=== PATIENT | female | born 1960 | race Caucasian/White ===

== ENCOUNTER 2020-03-30 08:05 | Outpatient (REF) | payer BC, SELFPAY ==
[2020-03-30 10:35] LABS: MANUAL DIFF FLAG NO
[2020-03-30 10:40] LABS: Basophils Absolute Auto 0.1 X10*3/uL (0.0-0.2); Eosinophils Absolute Auto 0.1 X10*3/uL (0.0-0.4); Eosinophils Percent Auto 0.9 % (0-4); Hematocrit 39.3 % (37-47); Imm Gran Abs Auto 0.03 X10*3/uL (0.00-0.03); Imm Gran Pct Auto 0.4 % (0.0-0.4); Lymphocytes Absolute Auto 1.9 X10*3/uL (1.2-4.9); Lymphocytes Percent Auto 27.6 % (20-40); Mean Corpuscular HGB Conc 33.1 g/dl (31.0-35.0); Mean Corpuscular Hemoglobin 30.6 pg (27.0-33.0); Mean Corpuscular Volume 92.5 fL (80-98); Mean Platelet Volume 9.4 fL (9.4-12.3); Monocytes Absolute Auto 0.6 X10*3/uL (0.1-1.2); Monocytes Percent Auto 8.9 % (2-11); Neutrophils Absolute Auto 4.2 X10*3/uL (2.0-8.3); Neutrophils Percent Auto 61.2 % (45-73); Platelet Count 289 X10*3/uL (160-400); Red Blood Count 4.25 X10*6/uL (4.20-5.50); Red Cell Distribution Width 12.1 % (11.0-16.0); White Blood Count 6.9 X10*3/uL (4.8-10.8)
[2020-03-30 11:07] LABS: Anion Gap 12 (12-20); Blood Urea Nitrogen 15 mg/dL (9-16); Calcium 9.6 mg/dL (8.4-10.2); Carbon Dioxide 30 mmol/L (22-29); Chloride 102 mmol/L (96-108); Estimated Glomerular Filt Rate > 60; Glucose Random 136 mg/dL (60-115); Potassium 4.6 mmol/l (3.3-5.1); Sodium 139 mmol/L (135-145); Uric Acid 3.5 mg/dL (2.4-5.7)
[2020-03-30 11:23] LABS: Erythrocyte Sedimentation Rate 5 MM/HR (0-20)
[2020-03-31 16:16] LABS: CRP High Sensitivity <0.3 mg/L
== END 2020-03-30 08:06 | disposition home or self-care (01) ==
LOC: HO.WFDLDS 08:05
PROVIDERS: PCP Internal Medicine; Visit Provider Family Medicine
DX: M18.9 Osteoarthritis of first carpometacarpal joint, unspecified (principal)
CPT/HCPCS: 36415; 80048; 84550; 85025; 85652; 86141

== ENCOUNTER 2020-04-03 14:04 | Outpatient (REF) | payer BC, SELFPAY ==
--- NOTE | 2020-04-03 14:11 | XR_ITS ---
EXAMINATION: XR CERVICAL SPINE CLINICAL INFORMATION: Cervical radiculopathy COMPARISON: None TECHNIQUE: 3 views of the cervical spine were obtained. FINDINGS: There is straightening of cervical lordosis. The vertebral bodies are normal in height. There is no cervical vertebral compression or destructive process or prevertebral soft tissue swelling. The odontoid appears intact. There are degenerative disc changes C3-C4, C5-C6, and C6-C7 with disc narrowing and mild vertebral spurring. There is some mild facet degeneration C3-C5. There is retrolisthesis under 2 mm at C3-C4 and 2 mm anterior spondylolisthesis approximately at C4-C5. IMPRESSION: 1. Degenerative disc changes C3-C4, C5-C6, and C6-C7. Variable facet degeneration. 2. Mild retrolisthesis C3-C4 and mild anterior spondylolisthesis C4-C5.
[2020-04-03 16:37] LABS: MANUAL DIFF FLAG NO
[2020-04-03 16:40] LABS: Basophils Absolute Auto 0.1 X10*3/uL (0.0-0.2); Basophils Percent Auto 0.7 % (0-2); Eosinophils Percent Auto 0.4 % (0-4); Hematocrit 41.9 % (37-47); Hemoglobin 13.7 g/dl (12.0-16.0); Imm Gran Abs Auto 0.04 X10*3/uL (0.00-0.03); Imm Gran Pct Auto 0.4 % (0.0-0.4); Lymphocytes Absolute Auto 2.2 X10*3/uL (1.2-4.9); Lymphocytes Percent Auto 24.1 % (20-40); Mean Corpuscular HGB Conc 32.7 g/dl (31.0-35.0); Mean Corpuscular Hemoglobin 30.4 pg (27.0-33.0); Mean Corpuscular Volume 92.9 fL (80-98); Mean Platelet Volume 9.1 fL (9.4-12.3); Monocytes Absolute Auto 0.5 X10*3/uL (0.1-1.2); Monocytes Percent Auto 5.9 % (2-11); Neutrophils Absolute Auto 6.2 X10*3/uL (2.0-8.3); Neutrophils Percent Auto 68.5 % (45-73); Platelet Count 324 X10*3/uL (160-400); Red Blood Count 4.51 X10*6/uL (4.20-5.50); Red Cell Distribution Width 12.3 % (11.0-16.0)
[2020-04-04 09:17] LABS: Lyme Abs Screen <0.90 index
[2020-04-05 05:06] LABS: Syphilis Screen Nonreactive (Nonreactive)
[2020-04-05 05:40] LABS: HIV AB/AG Nonreactive (Nonreactive); HIV Num 1 0.06 S/CO (0.00-0.99)
== END 2020-04-03 14:05 | disposition home or self-care (01) ==
LOC: HO.HMGCLDS 14:04
PROVIDERS: PCP Internal Medicine; Visit Provider Family Medicine
DX: M54.12 Radiculopathy, cervical region (principal); Z11.4 Encounter for screening for human immunodeficiency virus [HIV]
CPT/HCPCS: 36415; 72040; 85025; 86618; 86780; 87086; 87389

== ENCOUNTER 2020-05-29 14:00 | Outpatient (RCR) | payer BC, SELFPAY | END 2020-07-20 09:50 | disposition other institution (70) | LOC: HO.PTWFD 14:00 | PROVIDERS: Visit Provider Family Medicine | DX: M54.12 Radiculopathy, cervical region (principal) | CPT/HCPCS: 97110; 97140; 97162 ==

== ENCOUNTER 2021-11-27 12:34 | Outpatient (REF) | payer BC, SELFPAY ==
[2021-11-28 22:32] LABS: Lyme Abs Screen <0.90 index
== END 2021-11-27 12:35 | disposition home or self-care (01) ==
LOC: HO.WFDLDS 12:34
PROVIDERS: Visit Provider Family Medicine
DX: T14.8XXA Other injury of unspecified body region, initial encounter (principal); W57.XXXA Bitten or stung by nonvenomous insect and other nonvenomous arthropods, initial encounter
CPT/HCPCS: 36415; 86617; 86618

== ENCOUNTER 2023-03-17 07:22 | Outpatient (AMB) | payer BC, SELFPAY ==
--- NOTE | 2023-03-17 07:30 | MHC.PC.OV ---
Vital Signs 03/17/23 07:32 Height 5 ft 7 in Weight 136 lb BMI 21.3 BP 132/68 Blood Pressure Location Lt brachial Position Sitting Pulse 69 Pulse Source Pulse Oximeter Pulse Oximetry (%) 98 Oxygen Delivery Method Room Air Intake Visit Reasons: Dizziness for 6 to 8 weeks, Left ear discomfort, ear buzzing worsening Allergies amoxicillin [AMOXICILLIN] Allergy (Severe, Verified 03/17/23 07:33) HIVES penicillamine [Cuprimine] Allergy (Severe, Verified 03/17/23 07:33) HIVES Penicillins [PENICILLINS] Allergy (Severe, Verified 03/17/23 07:33) HIVES Medication List - Last Reconciled 03/17/23 by SARAN Osuna calcium carbonate-vitamin D3 600 mg-10 mcg (400 unit) 2 tabs PO DAILY 90 days gabapentin 200 mg (2 x 100 mg) PO BID 30 days melatonin 10 mg PO BEDTIME PRN Tobacco use date assessed: 09/02/22 Fall risk assessment: No Falls in past year Last assessed Fall Risk: 03/17/23 Dental Screening Dental Screen Date: 03/17/23 Did you have a dental visit in the last 12 months?: Yes Did you have a dental problem in the last 6 months where you did not have access to dental care?: No Was dental information given to patient?: Patient has dentist HPI HPI Comments History of Present Illness Details 62-year-old female PMH significant for migraines, osteoporosis, insomnia and burgada syndrome. Patient of Dr. Rider presents today for problem visit for worsening ear buzzing. Buzzing going on for 8 years however she feels is worsening. Patient also reports was doing yoga on Friday morning and she felt slightly off balance and felt like she got pulled to the left side. Patient denied any left ear pain states slight pressure. Denies fever, chills and cough. Patient does report she did have mild nasal congestion recently. Patient denies any lightheadedness or dizziness at this time and states that she does not feel like the room is spinning and that the tugging balance feeling has not reoccurred since that time. Patient encouraged to get previously ordered lab work completed. Recommended hearing test for ongoing ear buzzing. Patient reports has appointment with ENT in April for an appointment as well as a hearing test. Patient requesting medication states that she is feeling anxiety urine lightheaded to this ongoing ear buzzing, will trial hydroxyzine 25 mg as needed. [facility] Medical History Brugada syndrome Insomnia Migraine Osteoarthritis Osteoporosis Status post placement of implantable loop recorder (~02/04/18) Surgical History History of breast surgery History of colonoscopy History of total right hip arthroplasty Family History (Updated 03/17/23 @ 07:33 by Susan Dumas [facility]) Father No problems noted. Mother Alive and well Social History Housing: House Alcohol intake: current Alcohol intake frequency: holidays/special occasions only Patient Tobacco Use Status: Former Tobacco user Tobacco use type: Cigarette e-Cigarette/Vaping Use: Never Used Second Hand Smoke Exposure: Yes Advance Directives Date on File: 04/07/20 service: No Current occupational status: employed Cognitive needs: No Hearing needs: No Vision needs: Yes Questionnaire PHQ-9 Over the last 2 weeks, how often have you been bothered by any of the following problems? 1. Little interest or pleasure in doing things: not at all 2. Feeling down, depressed, or hopeless: not at all 3. Trouble falling or staying asleep, or sleeping too much: several days 4. Feeling tired or having little energy: several days 5. Poor appetite or overeating: not at all 6. Feeling bad about yourself - or that you are a failure or have let yourself or your family down: not at all 7. Trouble concentrating on things, such as reading the newspaper or watching television: not at all 8. Moving or speaking so slowly that other people could have noticed. Or the opposite - being so fidgety or restless that you have been moving around a lot more than usual: not at all 9. Thoughts that you would be better off or of hurting yourself in some way: not at all Total score: 2 Depression Screening Interpretation: Negative 13198 - PHQ-9 Billing: Yes Source: Developed by Drs. Cameron Randolph, Pamela Becerra, Cornelio Ruggiero and colleagues, with an educational barry from [employer]. Thrive Questionnaire Date Thrive assessed: 09/02/22 AUDIT C Alcohol Use Questionnaire (AUDIT-C) 1. How often do you have a drink containing alcohol?: Monthly or less 2. How many drinks containing alcohol do you have on a typical day when you are drinking?: 1 or 2 3. How often do you have six or more drinks on one occasion?: Never Total Score: 1 Score Reviewed/Action Taken: Yes LUKE-7 AMB Questionnaire LUKE-7 Date LUKE - 7 assessed: 09/02/22 Source: Developed by Drs. Cameron Randolph, Pamela Becerra, Cornelio Ruggiero and colleagues, with an educational barry from [employer]. Review of Systems Const Denies chills, Denies fatigue, Denies fever(s) and Denies poor appetite Eyes Denies no additional complaints and Reports other (left ear buzzing ) ENT Reports Normal hearing present Card Denies chest pain, Denies syncope, Denies rapid heart rate and Denies dyspnea Resp Denies cough and Denies dyspnea GI Denies change in stool character, Denies constipation, Denies diarrhea, Denies nausea and Denies vomiting Denies urinary frequency, Denies dysuria and Denies urinary urgency Neuro Reports Normal hearing present, Denies confusion and Denies syncope Psych Denies confusion Endo Denies fatigue Physical exam (Primary Care) Vital Signs: Last Vital Signs Pulse 69 03/17/23 07:32 BP 132/68 03/17/23 07:32 Pulse Ox 98 03/17/23 07:32 Oxygen Delivery Method Room Air 03/17/23 07:32 BMI result Body Mass Index 21.3 Tobacco/Smoking Status: Tobacco use Status Tobacco use date assessed 09/02/22 03/17/23 07:38 Patient Tobacco Use Status Former Tobacco user 03/17/23 07:38 Tobacco use type Cigarette 03/17/23 07:38 e-Cigarette/Vaping Use Never Used 03/17/23 07:38 PHQ-9: PHQ-9 Score PHQ-9: Total score 2 03/17/23 07:44 Depression Screening Interpretation: Negative Thrive Assessment: Date of Thrive Assessment Date Thrive assessed 09/02/22 03/17/23 07:38 Const General: No confusion Orientation/consciousness: No confusion HENMT Head: Yes normocephalic and Yes atraumatic Ears: external ears normal and TM abnormal with fluid behind the TM on the left Eyes Conjunctivae: conjunctivae normal Chest Chest palpation & inspection: normal inspection of the chest Resp Effort & Inspection: normal respiratory effort Auscultation: clear to auscultation bilaterally, no crackles, no rhonchi and no wheezes Cardio Rate: regular rate Rhythm: regular rhythm Heart sounds: S1 normal heart sound present and S2 normal heart sound present GI Inspection: Yes normal to inspection Neuro General: No confusion Cranial nerves: Yes Normal hearing present Extrem General: No edema Assessment and Plan Assessment & Plan (1) Anxiety: Code(s): F41.9 - Anxiety disorder, unspecified Plan: Hydroxyzine 25 mg as needed for anxiety. Patient advised that this medication could make her drowsy if so do not take while working or driving. Can cut the pill in half to 12.5 mg daily makes her drowsy. (2) Tinnitus: Code(s): H93.19 - Tinnitus, unspecified ear Plan: Patient advised to keep scheduled appointment with ENT for hearing test. (3) Eustachian tube dysfunction: Code(s): H69.90 - Unspecified Eustachian tube disorder, unspecified ear Plan: Patient advised to take [id number] Claritin daily to help promote drainage the ears, off balance feeling possibly related to nasal congestion and fluid behind TM. Signs and symptoms reviewed with patient when to follow-up with PCP. Medications: New hydroxyzine HCl 25 mg PO BID PRN 20 tabs 0RF anxiety F41.9 - Anxiety disorder, unspecified Coding Level of Care Code Est Pt Level 3 (11259) Diagnoses Anxiety F41.9 Tinnitus H93.19 Eustachian tube dysfunction H69.90
[2023-03-17 07:32] VITALS: BP 132/68; PULSE 69; O2SAT 98; BMI 21.3
== END 2023-03-17 08:11 | disposition home or self-care (01) ==
PROVIDERS: PCP Internal Medicine; Visit Provider Nurse Practitioner Family
DX: F41.9 Anxiety disorder, unspecified (principal); H93.19 Tinnitus, unspecified ear; H69.90 Unspecified Eustachian tube disorder, unspecified ear
CPT/HCPCS: 99213

== ENCOUNTER 2023-04-15 08:44 | Outpatient (REF) | payer BC, SELFPAY ==
[2023-04-15 09:01] LABS: MANUAL DIFF FLAG NO
[2023-04-15 09:24] LABS: Basophils Absolute Auto 0.1 X10*3/uL (0.0-0.2); Basophils Percent Auto 1.6 % (0-2); Eosinophils Absolute Auto 0.2 X10*3/uL (0.0-0.4); Hematocrit 40.9 % (37.0-47.0); Hemoglobin 13.5 g/dl (12.0-16.0); Imm Gran Abs Auto 0.02 X10*3/uL (0.00-0.03); Imm Gran Pct Auto 0.3 % (0.0-0.4); Lymphocytes Absolute Auto 2.1 X10*3/uL (1.2-4.9); Lymphocytes Percent Auto 35.9 % (20-40); Mean Corpuscular Hemoglobin 30.2 pg (27.0-33.0); Mean Corpuscular Volume 91.5 fL (80.0-98.0); Mean Platelet Volume 8.6 fL (9.4-12.3); Monocytes Absolute Auto 0.6 X10*3/uL (0.1-1.2); Monocytes Percent Auto 10.1 % (2-11); Neutrophils Absolute Auto 2.8 x10*3/uL (2.0-8.3); Neutrophils Percent Auto 49.1 % (45-73); Platelet Count 276 X10*3/uL (160-400); Red Blood Count 4.47 X10*6/uL (4.20-5.50); Red Cell Distribution Width 12.3 % (11.0-16.0); White Blood Count 5.7 X10*3/uL (4.8-10.8)
[2023-04-15 09:57] LABS: Appearance Urine Clear; Color Urine Yellow; Glucose Urine UA Negative (Negative); Leukocyte Esterase Urine Negative (Negative); Nitrite Urine Negative (Negative); PH 7.5 (5.0-9.0); Specific Gravity - Urine <= 1.005 (1.005-1.025); Urine Blood Negative (Negative); Urine Ketones Negative (Negative); Urine Protein Negative (Neg-Trace)
[2023-04-15 10:08] LABS: Alanine Aminotransferase 25 U/L (0-31); Albumin Level 4.3 g/dL (3.5-5.0); Alkaline Phosphatase 62 U/L (39-117); Anion Gap 13 (12-20); Aspartate Amino Transferase 25 U/L (5-31); Bilirubin Total 0.4 mg/dL (0.0-1.0); Blood Urea Nitrogen 13 mg/dL (9-16); Calcium 9.9 mg/dL (8.4-10.2); Carbon Dioxide 29 mmol/L (22-29); Chloride 103 mmol/L (96-108); Cholesterol 183 mg/dL (<200); Estimated Glomerular Filt Rate > 60; Glucose Fasting 95 mg/dL (60-99); HDL Cholesterol 84 mg/dL (>40); LDL Cholesterol Calculated 88 mg/dL (<100); Potassium 4.1 mmol/L (3.3-5.1); Sodium 141 mmol/L (135-145); Total Protein 7.1 g/dL (6.5-8.0); Triglycerides 55 mg/dL (<150)
[2023-04-15 10:25] LABS: Vitamin D 25-OH Total 37.7 ng/mL (>30)
== END 2023-04-15 08:45 | disposition home or self-care (01) ==
LOC: HO.LAB 08:44
PROVIDERS: PCP Internal Medicine; Visit Provider Internal Medicine
DX: Z00.00 Encounter for general adult medical examination without abnormal findings (principal); E78.00 Pure hypercholesterolemia, unspecified; E55.9 Vitamin D deficiency, unspecified
CPT/HCPCS: 36415; 80053; 80061; 81003; 82306; 84443; 85025

== ENCOUNTER 2023-04-15 17:11 | Outpatient (AMB) | payer BC, SELFPAY ==
[2023-04-15 17:12] VITALS: BP 124/80; PULSE 69; O2SAT 98; BMI 21.0
--- NOTE | 2023-04-15 17:12 | MHC.PC.OV ---
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: No Accompanied by: Self / Same As Patient Allergies amoxicillin [AMOXICILLIN] Allergy (Severe, Verified 04/15/23 17:32) HIVES penicillamine [Cuprimine] Allergy (Severe, Verified 04/15/23 17:32) HIVES Penicillins [PENICILLINS] Allergy (Severe, Verified 04/15/23 17:32) HIVES Medication List - Last Reconciled 04/15/23 by Darin Maldonado MD calcium carbonate-vitamin D3 600 mg-10 mcg (400 unit) 2 tabs PO DAILY 90 days gabapentin 200 mg (2 x 100 mg) PO BID 30 days melatonin 10 mg PO BEDTIME PRN Tobacco use date assessed: 04/15/23 Fall risk assessment: No Falls in past year Last assessed Fall Risk: 04/15/23 Dental Screening Dental Screen Date: 04/15/23 Did you have a dental visit in the last 12 months?: Yes Did you have a dental problem in the last 6 months where you did not have access to dental care?: No Was dental information given to patient?: Patient has dentist HPI pe HPI Details Patient comes in today for her annual physical examination States that she has been experiencing recurrent tinnitus and vertigo for the past month, with the tinnitus worse in her left ear Was seen here for said complaint last month and was trialed on Hydroxyzine to help with her anxiety but states that she took one dose of this a few weeks ago and felt very tired and drowsy and stopped taking this immediately Tried to call her ENT doctor's office to [place] to schedule an appointment but could not get in to see the doctor until late next month after Thanksgiving but she was able to get them to clear and irrigate out her left ear, which was filled with ear wax but did not seem to help much with her recurrent vertigo Notes that her symptoms seem to get worse when she turns her head too quickly or when she changes positions abruptly States that she tried looking up as much information as she can regarding her symptoms but all this did was made her feel more anxious about her problem(s) and which in turn seems to make her symptoms feel worse Feels that she may also benefit from something to help calm her anxiety down, which she states has increased lately especially with her 's health issues over the past couple of years She denies any ear pain; denies any fever or headaches Denies any sore throat or any recent cough/cold symptoms She denies any chest pains, no SOB No nausea/vomiting, no abdominal pain No change in bowel habits noted She denies any acute urinary symptoms Had her follow up labs done at [facility] earlier this morning - to discuss her results She will be calling to schedule her annual mammogram at [facility] for next month; will also be seeing 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 Mother Alive and well Social History Housing: House Alcohol intake: current Alcohol intake frequency: holidays/special occasions only Patient Tobacco Use Status: Former Tobacco user Tobacco use type: Cigarette e-Cigarette/Vaping Use: Never Used Second Hand Smoke Exposure: Yes Advance Directives Date on File: 04/07/20 service: No Current occupational status: employed Cognitive needs: No Hearing needs: No Vision needs: Yes Questionnaire PHQ-9 Over the last 2 weeks, how often have you been bothered by any of the following problems? 1. Little interest or pleasure in doing things: not at all 2. Feeling down, depressed, or hopeless: not at all 3. Trouble falling or staying asleep, or sleeping too much: several days 4. Feeling tired or having little energy: several days 5. Poor appetite or overeating: not at all 6. Feeling bad about yourself - or that you are a failure or have let yourself or your family down: not at all 7. Trouble concentrating on things, such as reading the newspaper or watching television: not at all 8. Moving or speaking so slowly that other people could have noticed. Or the opposite - being so fidgety or restless that you have been moving around a lot more than usual: not at all 9. Thoughts that you would be better off or of hurting yourself in some way: not at all Total score: 2 Depression Screening Interpretation: Negative Depression Screening Done: Yes [id number] - PHQ-9 Billing: Yes Source: Developed by Drs. Cameron Randolph, Pamela Becerra, Cornelio Ruggiero and colleagues, with an educational barry from [employer]. Thrive Questionnaire Date Thrive assessed: 04/15/23 I am a: Patient What is your living situation today?: I have a steady place to live Within the past 12 months, did the food you bought not last and you didn't have the money to get more?: Never true Within the past 12 months, did you worry whether your food would run out before you got money to buy more?: Never true Do you have trouble paying for medicines?: No Do you have trouble getting transportation to medical appointments?: No Do you have trouble paying your heating and electricity bill?: No Do you have trouble taking care of your child, family member or friend?: No Do you have trouble with day-to-day activities such as bathing, preparing meals, shopping, managing finances, etc.?: No Are you currently unemployed and looking for a job?: No Are you interested in more education?: No Please select the resources that you would like help with: None Currently or been in a relationship where the following occur: no concerns reported AUDIT C Alcohol Use Questionnaire (AUDIT-C) 1. How often do you have a drink containing alcohol?: Monthly or less 2. How many drinks containing alcohol do you have on a typical day when you are drinking?: 1 or 2 3. How often do you have six or more drinks on one occasion?: Never Total Score: 1 Score Reviewed/Action Taken: Yes LUKE-7 AMB Questionnaire LUKE-7 Date LUKE - 7 assessed: 04/15/23 Feeling nervous, anxious, or on edge: 0 = Not at all Not being able to stop or control worryin = Not at all Worrying too much about different things: 0 = Not at all Trouble relaxin = Not at all Being so restless that it is hard to sit still: 0 = Not at all Becoming easily annoyed or irritable: 0 = Not at all Feeling afraid as if something awful might happen: 0 = Not at all Total LUKE-7 score (0-4 normal; 5-9 mild; 10-14 moderate; 15-21 severe): 0 Source: Developed by Drs. Cameron Randolph, Pamela Becerra, Cornelio Ruggiero and colleagues, with an educational barry from [employer]. Review of Systems Const Denies chills, Denies fatigue, Denies fever(s), Denies headache(s) and Denies malaise Eyes Denies blurry vision, Denies change in vision, Denies irritation and Denies itchy eyes ENT Denies dysphagia, Reports vertigo (on and off lately), Denies otalgia, Denies headache(s), Denies nasal congestion, Reports neck pain (at times - feel her neck 'crack' a lot when she turns her head), Denies odynophagia, Reports tinnitus (increasing, especially in the left ear), Denies sinus pain and Denies sore throat Card Denies chest pain, Denies rapid heart rate, Denies irregular heart rhythm, Denies palpitations and Denies dyspnea Resp Denies chest congestion, Denies cough, Denies dyspnea and Denies wheezing GI Denies abdominal pain, Denies bloating, Denies constipation, Denies dysphagia, Denies heartburn, Reports loose stools (occasionally, mostly when she gets stressed), Denies nausea, Denies odynophagia and Denies vomiting Denies hematuria, Denies urinary frequency, Denies dysuria, Denies urinary incontinence and Denies urinary urgency Musc Denies back pain, Denies arthralgias, Denies joint swelling, Denies muscle weakness and Reports neck pain (at times - feel her neck 'crack' a lot when she turns her head) Skin/Breast Denies breast pain, Denies breast mass, Denies change in pigmentation, Denies lesions, Denies rash and Denies unusual bruising Neuro Reports vertigo (on and off lately), Denies headache(s) and Denies paresthesias Psych Reports anxiety (increasing) and Denies depression Endo Denies fatigue and Denies palpitations Edis/Lymph Denies easy bruising Aller/Immun Denies itchy eyes and Denies wheezing Physical exam (Primary Care) Vital Signs: Last Vital Signs Pulse 69 04/15/23 17:12 BP 124/80 04/15/23 17:12 Pulse Ox 98 04/15/23 17:12 Oxygen Delivery Method Room Air 04/15/23 17:12 BMI result Body Mass Index 21.0 Tobacco/Smoking Status: Tobacco use Status Tobacco use date assessed 04/15/23 04/15/23 17:15 Patient Tobacco Use Status Former Tobacco user 04/15/23 17:15 Tobacco use type Cigarette 04/15/23 17:15 e-Cigarette/Vaping Use Never Used 04/15/23 17:15 PHQ-9: PHQ-9 Score PHQ-9: Total score 2 04/15/23 19:44 Depression Screening Interpretation: Negative Thrive Assessment: Date of Thrive Assessment Date Thrive assessed 04/15/23 04/15/23 17:22 Currently or been in a relationship where the following occur: no concerns reported Const General: no acute distress, alert and awake Orientation/consciousness: patient oriented x3 HENMT Head: Yes normocephalic and Yes atraumatic Ears: external ears normal, TM's normal bilaterally and EAC's normal General nose exam: No nasal discharge present Face and sinus: Yes normal facial exam and Yes sinuses nontender Teeth and gingiva: dentition normal Throat: Yes posterior oropharynx normal and Yes tonsils normal (no TP congestion) Eyes Eyelids: Yes eyelids normal Conjunctivae: conjunctivae normal Pupils: Equal, round and reactive pupils present EOM: EOMs intact bilaterally Neck Neck: Yes no lymphadenopathy and Yes supple Thyroid: Thyroid normal Resp Auscultation: clear to auscultation bilaterally, no rales and no wheezes Cardio Rate: regular rate Rhythm: regular rhythm Heart sounds: no murmurs GI Palpation (GI): Soft to palpation, nontender and No hepatosplenomegaly present Auscultation: normal bowel sounds General: Yes no CVA tenderness Back/Spine/Pelvis Back: no CVA tenderness Cervical Spine: Cervical spine tenderness (mild) Thoracic/Lumbar Spine: No thoracic spinal tenderness and No lumbar spinal tenderness Skin Lesions: no lesions Rashes: no rashes Neuro General: patient oriented x3, moves all extremities, no focal motor deficits and CN's II-XI intact bilaterally Cranial nerves: Yes Equal, round and reactive pupils present Cognition (Neuro): normal cognition Gait exam (Neuro): Normal gait present Extrem General: Yes no clubbing, cyanosis or edema Results Reviewed Results Reviewed: Laboratory Tests 04/15/23 08:57 WBC 5.7 Hgb 13.5 Hct 40.9 Plt Count 276 Sodium 141 Potassium 4.1 Creatinine 0.84 Estimated GFR > 60 Fasting Glucose 95 Calcium 9.9 AST 25 ALT 25 Triglycerides 55 Cholesterol 183 LDL Cholesterol, Calc 88 HDL Cholesterol 84 25-OH Vitamin D Total 37.7 TSH 2.00 Ur Specific [place] <= 1.005 Urine Protein Negative Urine Glucose (UA) Negative Urine Blood Negative Assessment and Plan Assessment & Plan (1) Annual physical exam: Code(s): Z00.00 - Encounter for general adult medical examination without abnormal findings Plan: Results of her labs done earlier today reviewed and discussed with patient She is up-to-date on her colon cancer screening (due for repeat next year in 2023) She will be scheduling her annual mammogram and pap smear/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 with [facility] for sometime in the next couple of months (2) Osteoporosis: Code(s): M81.0 - Age-related osteoporosis without current pathological fracture Qualifiers: Osteoporosis type: age-related Presence of current pathological fracture: without current pathological fracture Qualified Code(s): M81.0 - Age-related osteoporosis without current pathological fracture Plan: BMD done in 06/2017 revealed (+) osteoporosis with lowest T-score value of -2.8 in the femoral neck Patient has been on Alendronate 70 mg once a week since 2018 and just recently completed 5 years of oral bisphosphonate Tx earlier this year Will reevaluate her response to Tx and consider other treatment options afterwards Will recheck her BMD SHAKA for follow up (this was previously ordered but she was not able to get it done due to her 's significant health issues over the past couple of years) She is encouraged/reminded to continue to stay active and exercise regularly and continue taking her daily oral Calcium and Vitamin D supplements Fall and injury precautions reinforced as well (3) Vertigo: Code(s): R42 - Dizziness and giddiness Plan: She most likely has paroxysmal benign positional vertigo States that she tried to book an appointment to see her ENT SHAKA but was advised that the earliest appointment they can give her is next month after Thanksgiving Will refer her to physical therapy for canalith positioning Will also try her empirically on oral Prednisone 20 mg QD x 5 days to see if this will calm down her symptoms of tinnitus and dizziness - suspect that she may have some labyrinthitis of the left ear that could be triggering her current symptoms (4) Migraine: Code(s): G43.909 - Migraine, unspecified, not intractable, without status migrainosus Qualifiers: Intractability: not intractable Migraine type: without aura Status migrainosus presence: without status migrainosus Qualified Code(s): G43.009 - Migraine without aura, not intractable, without status migrainosus Plan: Appears controlled so far Reinforced avoidance of migraine triggers Continue Sumatriptan 50 mg PRN She was also started on Verapamil 40 mg Q HS for BOYD prophylaxis by neurology last year but it appears that she is no longer taking this and has not done so in a while Follow up with neurology (Dr. Quiros) as scheduled or as needed (5) Brugada syndrome: Code(s): I49.8 - Other specified cardiac arrhythmias Plan: Initially suspected on EKG sometime in 2018 - EKG revealed ST elevation and downsloping pattern in V2 Subsequent Holter monitoring and echocardiogram were unremarkable. Stress test revealed good exercise tolerance and a pattern of ST elevation in lead V2. 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 Brugada As she has never had any episodes of syncope or near-syncope, was determined to not be a candidate for ICD placement Patient underwent placement of an [employer] implantable loop recorder on 02/04/2018 and continues to be monitored for NSVT or VT episodes and any other concerning symptoms She has met with genetic counselor in [place] and they have discussed plan to have her family members, especially her daughter, meet with them sometime in the future for testing States that she currently feels well and continues to exercise regularly with no restrictions in terms of activity or exertion and has not had any concerning symptoms (including chest pains or SOB) so far Follow up with cardiology at [facility] as scheduled yearly (6) Osteoarthritis: Code(s): M19.90 - Unspecified osteoarthritis, unspecified site Qualifiers: Osteoarthritis location: unspecified site Osteoarthritis type: primary Qualified Code(s): M19.91 - Primary osteoarthritis, unspecified site Plan: Involving multiple joints Patient underwent total right hip arthroplasty on 08/21/2020, with significant improvement of her right hip pain and mobility Her other hip has been bothering her on and off although she continues to stay active and exercise and work out regularly Continue Celecoxib 200 mg BID PRN for pain Follow up with orthopedics as scheduled (7) Spondylolisthesis, cervical region: Code(s): M43.12 - Spondylolisthesis, cervical region Plan: Continue Gabapentin 200 mg BID Cervical spine x-rays done back in 2019 revealed (+) degenerative disc changes at C3-C4, C5-C6, and C6-C7,with variable facet degeneration. There is also (+) mild retrolisthesis at C3-C4 and mild anterior spondylolisthesis at C4-C5 (8) Insomnia: Code(s): G47.00 - Insomnia, unspecified Qualifiers: Insomnia type: unspecified Qualified Code(s): G47.00 - Insomnia, unspecified Plan: Sleep hygiene reinforced Continue Melatonin 10 mg Q HS PRN (9) Anxiety: Code(s): F41.9 - Anxiety disorder, unspecified Plan: She could not tolerate the Hydroxyzine that was prescribed for her last week Would like to try something for her anxiety but does not want anything that can make her feel drowsy or tired Advised that most of the PRN meds for anxiety are benzodiazepines, which can cause drowsiness and are also potentially habit-forming Have advised that taking something for maintenance treatment would be a better option and should not cause drowsiness - will start her on low dose Sertraline 25 mg QD Plan Follow up in 4 months Orders: Orders PT Evaluation and Treatment Today R42 - Dizziness and giddiness XR DEXA axial skeleton Today M81.0 - Age-related osteoporosis without current pathological fracture, Z78.0 - Asymptomatic menopausal state Medications: New sertraline Take daily in AM 25 mg PO DAILY 30 days 30 tabs 3RF anxiety F41.9 - Anxiety disorder, unspecified prednisone 20 mg PO DAILY 5 days 5 tabs 0RF Coding Level of Care Code Est Pt Prev Care 40-64y(17241) Diagnoses Annual physical exam Z00.00 Age-related osteoporosis without current pathological fracture M81.0 Osteoporosis type: age-related Presence of current pathological fracture: without current pathological fracture Vertigo R42 Migraine without aura and without status migrainosus, not intractable G43.009 Intractability: not intractable Migraine type: without aura Status migrainosus presence: without status migrainosus Brugada syndrome I49.8 Primary osteoarthritis, unspecified site M19.91 Osteoarthritis location: unspecified site Osteoarthritis type: primary Spondylolisthesis, cervical region M43.12 Insomnia, unspecified type G47.00 Insomnia type: unspecified Anxiety F41.9
== END 2023-04-15 18:08 | disposition home or self-care (01) ==
LOC: HO.HMGH 17:11
PROVIDERS: PCP Internal Medicine; Visit Provider Internal Medicine
DX: Z00.00 Encounter for general adult medical examination without abnormal findings (principal); M81.0 Age-related osteoporosis without current pathological fracture; R42 Dizziness and giddiness; G43.009 Migraine without aura, not intractable, without status migrainosus; I49.8 Other specified cardiac arrhythmias; M19.91 Primary osteoarthritis, unspecified site; M43.12 Spondylolisthesis, cervical region; G47.00 Insomnia, unspecified; F41.9 Anxiety disorder, unspecified
CPT/HCPCS: 99396

== ENCOUNTER 2023-06-03 17:00 | Outpatient (RCR) | payer BC, SELFPAY ==
[2023-05-05 15:06] VITALS: BP 118/75; PULSE 68
--- NOTE | 2023-05-06 12:07 | MHC.PT.EP ---
[facility] [place] Office [place] Office [place] Office [address] Magaly Paulino [address] [phone] F: [phone] F: [phone] F: [phone] F: [phone] Physical Therapy Plan of Care Date of Evaluation: 05/05/23 Date of Surgery: Diagnosis: Dizziness and giddiness Assessment: Pt is a very pleasant 62yo F who presents to PT with dizziness, and reports symptoms began on the 2nd week of January. Upon assessment, she was negative for Benign Paraoxysmal Positional Vertigo (BPPV) in all 3 canals bilaterally. She had signs and symptoms consistent with vestibular hypofunctioning noted with balance assessment and Dynamic Gait Index Assessment. She presents to PT with current impairments in dizziness, transfers, decreased balance/proprioception, and impaired gait. She is limited functionally by changing positions, walking with head turns, walking in the dark, and stair navigation. She is an excellent candidate for skilled PT for vestibular rehab in order to address current impairments in order to maximize function and facilitate return to PLOF Frequency and Duration: The patient will be seen 2x/week for 4 weeks Short Term Goals: Pt will be I with HEP to promote self management of symptoms Pt will demonstrate ability to balance on airex with eyes closed for 30 seconds with cl S Manager Paper Goals: Pt will demonstrate ability to ambulate with horizontal head turns independently without dizziness or instability Pt will successfully transition on/off the floor to perform yoga poses without subjective complaints of dizziness or loss of balance Treatment Plan: Modalities to reduce pain, spasms and effusion. Manual therapy to restore motion and function. Therapeutic exercise to improve strength and flexibility. Neuromuscular re-education for posture and balance. Therapeutic activities to return to functional activities of daily living. Electronically signed by: Terese He, PT, DPT Please sign and return to therapist. Thank you for your referral.
--- NOTE | 2023-09-29 10:54 | MHC.PT.DC ---
[facility] [place] Office [place] Office [place] Office [address] Magaly Paulino [address] [place] [address] [phone] F: [phone] F: [phone] F: [phone] F: [phone] Physical Therapy Discharge Report Diagnosis: Dizziness and giddiness Date of Surgery: Date of Evaluation: 05/05/23 Date of Discharge: 09/29/23 Treatments to Date: 3 Cancellations to Date: No Shows to Date: Discharge Status: Achieved Goals Improved Function Independent with HEP Discharge Summary: Pt was seen for PT from 05/05/23-06/03/23. Her last attended and scheduled PT treatment was 06/03/23. She is being D/C from skilled PT as she did not call to schedule in > 30 days From last PT treatment note: Pt has made excellent progress since SOC. She has consistently had no dizziness. She has improved her balance and is able to ambulate with head turns without onset of symptoms. She has returned to her functional baseline. I will keep pts chart open for 30 days in case she has reoccurence of symptoms or any concerns regarding PT. Pt in agreement with this plan Electronically signed by: Terese He, PT, DPT Please sign and return to therapist. Thank you for your referral.
== END 2023-09-29 10:53 | disposition home or self-care (01) ==
LOC: HO.PT 17:00
PROVIDERS: PCP Internal Medicine; Visit Provider Internal Medicine
DX: R42 Dizziness and giddiness (principal)
CPT/HCPCS: 97112; 97116; 97162

== ENCOUNTER 2023-10-15 14:28 | Outpatient (AMB) | payer BC, SELFPAY ==
--- NOTE | 2023-10-15 14:34 | A.OFFPC_ITS ---
Vital Signs 10/15/23 14:36 Height 5 ft 7 in Weight 133 lb BMI 20.8 BP 118/68 Blood Pressure Location Lt brachial Position Sitting Pulse 71 Pulse Source Pulse Oximeter Pulse Oximetry (%) 96 Oxygen Delivery Method Room Air Intake Visit Reasons: Neck discomfort/Unsteady Gait Intake Note: Patient is here to follow up on neck discomfort and unsteady gait. 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 Accompanied by: Self / Same As Patient Allergies amoxicillin [AMOXICILLIN] Allergy (Severe, Verified 11/24/23 17:44) HIVES penicillamine [Cuprimine] Allergy (Severe, Verified 11/24/23 17:44) HIVES Penicillins [PENICILLINS] Allergy (Severe, Verified 11/24/23 17:44) HIVES Medication List - Last Reconciled 10/15/23 by Darin Maldonado MD calcium carbonate-vitamin D3 600 mg-10 mcg (400 unit) 2 tabs PO DAILY 90 days cyclobenzaprine 5 mg PO TID PRN gabapentin 200 mg (2 x 100 mg) PO BID 30 days melatonin 10 mg PO BEDTIME PRN Tobacco use date assessed: 10/15/23 Fall risk assessment: No Falls in past year Last assessed Fall Risk: 10/15/23 Dental Screening Dental Screen Date: 10/15/23 Did you have a dental visit in the last 12 months?: Yes Did you have a dental problem in the last 6 months where you did not have access to dental care?: No Was dental information given to patient?: Patient has dentist HPI Neck discomfort/Unsteady Gait HPI Details Patient comes in today complaining of increasing pain and discomfort over the back of her neck lately Recalls being advised by Dr. Guillory back in 2019 that her cervical spine x- rays then showed (+) multilevel degenerative disease and would like to see if she can get a repeat cervical spine x-ray done for further evaluation of her recently increasing pain She denies any recent injury or trauma to her neck and states that she has been experiencing frequent cracking sensation over her neck She has also been experiencing recurrent tinnitus and vertigo for the past few months, with the tinnitus worse in her left ear Has noticed that her symptoms seem to get worse when she turns her head too quickly or when she changes positions abruptly States that she feels okay otherwise and denies any headaches or dizziness She denies any chest pains, no SOB No nausea/vomiting, no abdominal pain No change in bowel habits noted She would also like to go over the results of her labs done back in March 2023 after her last physical exam [facility] Medical History Status post placement of implantable loop recorder (~02/04/18) Insomnia Osteoporosis Brugada syndrome Osteoarthritis Migraine Surgical History History of colonoscopy History of total right hip arthroplasty History of breast surgery Family History Father No problems noted. Mother Alive and well Social History Housing: House Alcohol intake: current Alcohol intake frequency: holidays/special occasions only Patient Tobacco Use Status: Former Tobacco user Tobacco use type: Cigarette e-Cigarette/Vaping Use: Never Used Second Hand Smoke Exposure: Yes Advance Directives Date on File: 04/07/20 service: No Current occupational status: employed Cognitive needs: No Hearing needs: No Vision needs: Yes (Glasses) Questionnaire PHQ-9 Over the last 2 weeks, how often have you been bothered by any of the following problems? 1. Little interest or pleasure in doing things: not at all 2. Feeling down, depressed, or hopeless: not at all 3. Trouble falling or staying asleep, or sleeping too much: not at all 4. Feeling tired or having little energy: not at all 5. Poor appetite or overeating: not at all 6. Feeling bad about yourself - or that you are a failure or have let yourself or your family down: not at all 7. Trouble concentrating on things, such as reading the newspaper or watching television: not at all 8. Moving or speaking so slowly that other people could have noticed. Or the opposite - being so fidgety or restless that you have been moving around a lot more than usual: not at all 9. Thoughts that you would be better off or of hurting yourself in some way: not at all Total score: 0 Depression Screening Interpretation: Negative Depression Screening Done: Yes [id number] - PHQ-9 Billing: Yes Source: Developed by Drs. Cameron Randolph, Pamela Becerra, Cornelio Ruggiero and colleagues, with an educational barry from [employer]. Thrive Questionnaire Date Thrive assessed: 10/15/23 I am a: Patient What is your living situation today?: I have a steady place to live Within the past 12 months, did the food you bought not last and you didn't have the money to get more?: Never true Within the past 12 months, did you worry whether your food would run out before you got money to buy more?: Never true Do you have trouble paying for medicines?: No Do you have trouble getting transportation to medical appointments?: No Do you have trouble paying your heating and electricity bill?: No Do you have trouble taking care of your child, family member or friend?: No Do you have trouble with day-to-day activities such as bathing, preparing meals, shopping, managing finances, etc.?: No Are you currently unemployed and looking for a job?: No Are you interested in more education?: No Currently or been in a relationship where the following occur: no concerns reported THRIVE Score: 0 AUDIT C Alcohol Use Questionnaire (AUDIT-C) 1. How often do you have a drink containing alcohol?: Monthly or less 2. How many drinks containing alcohol do you have on a typical day when you are drinking?: 1 or 2 3. How often do you have six or more drinks on one occasion?: Never Total Score: 1 Score Reviewed/Action Taken: Yes LUKE-7 AMB Questionnaire LUKE-7 Date LUKE - 7 assessed: 10/15/23 Feeling nervous, anxious, or on edge: 0 = Not at all Not being able to stop or control worryin = Not at all Worrying too much about different things: 0 = Not at all Trouble relaxin = Not at all Being so restless that it is hard to sit still: 0 = Not at all Becoming easily annoyed or irritable: 0 = Not at all Feeling afraid as if something awful might happen: 0 = Not at all Total LUKE-7 score (0-4 normal; 5-9 mild; 10-14 moderate; 15-21 severe): 0 Source: Developed by Pamela Parker Kurt Kroenke and colleagues, with an educational barry from [employer]. Review of Systems Const Denies chills, Denies fatigue, Denies fever(s) and Denies headache(s) ENT Denies dysphagia, Reports vertigo (on and off lately), Denies otalgia, Denies headache(s), Reports neck pain (at times - feel her neck 'crack' a lot when she turns her head), Denies odynophagia, Reports tinnitus (increasing, especially in the left ear) and Denies sore throat Card Denies chest pain, Denies rapid heart rate, Denies irregular heart rhythm, Denies palpitations and Denies dyspnea Resp Denies chest congestion, Denies cough, Denies dyspnea and Denies wheezing GI Denies abdominal pain, Denies constipation, Denies dysphagia, Denies heartburn, Reports loose stools (occasionally, mostly when she gets stressed), Denies nausea, Denies odynophagia and Denies vomiting Denies hematuria, Denies urinary frequency, Denies dysuria and Denies urinary incontinence Musc Denies back pain, Denies arthralgias and Reports neck pain (at times - feel her neck 'crack' a lot when she turns her head) Skin/Breast Denies rash Neuro Reports vertigo (on and off lately), Denies headache(s) and Denies paresthesias Psych Reports anxiety (increasing) and Denies depression Endo Denies fatigue and Denies palpitations Edis/Lymph Denies easy bruising Aller/Immun Denies wheezing Physical exam (Primary Care) Vital Signs: Last Vital Signs Pulse 71 10/15/23 14:36 BP 118/68 10/15/23 14:36 Pulse Ox 96 10/15/23 14:36 Oxygen Delivery Method Room Air 10/15/23 14:36 BMI result Body Mass Index 20.8 Tobacco/Smoking Status: Tobacco use Status Tobacco use date assessed 10/15/23 10/15/23 14:43 Patient Tobacco Use Status Former Tobacco user 10/15/23 14:43 Tobacco use type Cigarette 10/15/23 14:43 e-Cigarette/Vaping Use Never Used 10/15/23 14:43 PHQ-9: PHQ-9 Score PHQ-9: Total score 0 10/15/23 15:40 Depression Screening Interpretation: Negative Thrive Assessment: Date of Thrive Assessment Date Thrive assessed 10/15/23 10/15/23 14:43 Currently or been in a relationship where the following occur: no concerns reported Const General: no acute distress and alert Orientation/consciousness: patient oriented x3 HENMT Ears: TM's normal bilaterally and EAC's normal Throat: Yes posterior oropharynx normal and Yes tonsils normal (no TP congestion) Neck Neck: Yes no lymphadenopathy and Yes tender (over the cervical spine) Thyroid: Thyroid normal Resp Auscultation: clear to auscultation bilaterally, no rales and no wheezes Cardio Rate: regular rate Rhythm: regular rhythm Heart sounds: no murmurs GI Palpation (GI): Soft to palpation and nontender Auscultation: normal bowel sounds General: Yes no CVA tenderness Back/Spine/Pelvis Back: no CVA tenderness Cervical Spine: Cervical spine tenderness (mild) Thoracic/Lumbar Spine: No lumbar spinal tenderness Skin Rashes: no rashes Neuro General: patient oriented x3 Cognition (Neuro): normal cognition Extrem General: Yes no clubbing, cyanosis or edema Results Reviewed Results Reviewed: Laboratory Tests 04/15/23 08:57 WBC 5.7 Hgb 13.5 Hct 40.9 Plt Count 276 Sodium 141 Potassium 4.1 Creatinine 0.84 Estimated GFR > 60 Fasting Glucose 95 Calcium 9.9 AST 25 ALT 25 Triglycerides 55 Cholesterol 183 LDL Cholesterol, Calc 88 HDL Cholesterol 84 25-OH Vitamin D Total 37.7 TSH 2.00 Ur Specific [place] <= 1.005 Urine Protein Negative Urine Glucose (UA) Negative Urine Blood Negative Urine Nitrite Negative Ur Leukocyte Esterase Negative Assessment and Plan Assessment & Plan (1) Spondylolisthesis, cervical region: Code(s): M43.12 - Spondylolisthesis, cervical region Plan: Cervical spine x-rays done back in March 2020 revealed (+) degenerative disc changes at C3-C4, C5-C6, and C6-C7, with variable facet degeneration and mild retrolisthesis at C3-C4 and mild anterior spondylolisthesis at C4-C5 Will send patient for repeat cervical spine x-rays for further evaluation/update on her condition (2) Vertigo: Code(s): R42 - Dizziness and giddiness Plan: Patient most likely has paroxysmal benign positional vertigo States that she was seen by ENT a few months ago and was advised that her exam came out mostly normal; she was recommended to continue with physical therapy for canalith positioning We also tried her empirically on oral Prednisone 20 mg QD x 5 days to see if this will calm down her symptoms of tinnitus and dizziness, as we suspected that she may have some labyrinthitis of the left ear that could be triggering her current symptoms, but patient did not think that prednisone helped much (3) Osteoporosis: Code(s): M81.0 - Age-related osteoporosis without current pathological fracture Qualifiers: Osteoporosis type: age-related Presence of current pathological fracture: without current pathological fracture Qualified Code(s): M81.0 - Age- related osteoporosis without current pathological fracture Plan: BMD done in 06/2017 revealed (+) osteoporosis with lowest T-score value of -2.8 in the femoral neck Patient has been on Alendronate 70 mg once a week since 2017 and just recently completed 5 years of oral bisphosphonate Tx earlier this year Will reevaluate her response to Tx and consider other treatment options subsequently - will recheck her BMD SHAKA for follow up This was previously ordered but she was not able to get it done right away due to her 's significant health issues over the past couple of years but she is now scheduled to have this done in a few weeks She is encouraged/reminded to continue to stay active and exercise regularly and continue taking her daily oral Calcium and Vitamin D supplements Fall and injury precautions reinforced as well Results of her labs done back in March 2023 reviewed and discussed with patient - is advised that her labs are mostly within normal range (4) Migraine: Code(s): G43.909 - Migraine, unspecified, not intractable, without status migrainosus Qualifiers: Migraine type: without aura Status migrainosus presence: without status migrainosus Intractability: not intractable Qualified Code(s): G43.009 - Migraine without aura, not intractable, without status migrainosus Plan: Appears controlled lately Reinforced avoidance of migraine triggers Continue Sumatriptan 50 mg PRN She was also started on Verapamil 40 mg Q HS for BOYD prophylaxis by neurology last year but it appears that she is no longer taking this and has not done so in a while Follow up with neurology (Dr. Quiros) as scheduled or as needed (5) Brugada syndrome: Code(s): I49.8 - Other specified cardiac arrhythmias Plan: Initially suspected on EKG sometime in 2018 - EKG revealed ST elevation and downsloping pattern in V2 Subsequent Holter monitoring and echocardiogram were unremarkable. Stress test revealed good exercise tolerance and a pattern of ST elevation in lead V2. 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 Brugada As she has never had any episodes of syncope or near-syncope, was determined to not be a candidate for ICD placement Patient underwent placement of an [employer] implantable loop recorder on 02/04/2018 and was monitored/evaluated for NSVT or VT episodes and any other concerning symptoms - it appears that this came out okay She has met with genetic counselor in [place] and they have discussed plan to have her family members, especially her daughter, meet with them sometime in the future for testing States that she currently feels well and continues to exercise regularly with no restrictions in terms of activity or exertion and has not had any concerning symptoms (including chest pains or SOB) so far Follow up with cardiology at [facility] as scheduled yearly (6) Osteoarthritis: Code(s): M19.90 - Unspecified osteoarthritis, unspecified site Qualifiers: Osteoarthritis location: unspecified site Osteoarthritis type: primary Qualified Code(s): M19.91 - Primary osteoarthritis, unspecified site Plan: Involving multiple joints Patient underwent total right hip arthroplasty on 08/21/2020, with significant improvement of her right hip pain and mobility Her other hip has been bothering her on and off although she continues to stay active and exercise and work out regularly Continue Celecoxib 200 mg BID PRN for pain Follow up with orthopedics as scheduled (7) Insomnia: Code(s): G47.00 - Insomnia, unspecified Qualifiers: Insomnia type: unspecified Qualified Code(s): G47.00 - Insomnia, unspecified Plan: Sleep hygiene reinforced Continue Melatonin 10 mg Q HS PRN (8) Anxiety: Code(s): F41.9 - Anxiety disorder, unspecified Plan: She could not tolerate Hydroxyzine when it was prescribed for her a few months ago She wanted to try something for her anxiety but does not want anything that can make her feel drowsy or tired She has been advised that most of the PRN meds for anxiety are benzodiazepines, which can cause drowsiness and are also potentially habit-forming She was previously started on low dose Sertraline 25 mg QD but she stopped taking it after a few days due to side effects Plan Follow up as scheduled in November 2023 Coding Level of Care Code Est Pt Level 4 (05699) Diagnoses Spondylolisthesis, cervical region M43.12 Vertigo R42 Age-related osteoporosis without current pathological fracture M81.0 Osteoporosis type: age-related Presence of current pathological fracture: without current pathological fracture Migraine without aura and without status migrainosus, not intractable G43.009 Migraine type: without aura Status migrainosus presence: without status migrainosus Intractability: not intractable Brugada syndrome I49.8 Primary osteoarthritis, unspecified site M19.91 Osteoarthritis location: unspecified site Osteoarthritis type: primary Insomnia, unspecified type G47.00 Insomnia type: unspecified Anxiety F41.9
[2023-10-15 14:36] VITALS: BP 118/68; PULSE 71; O2SAT 96; BMI 20.8
== END 2023-10-15 15:40 | disposition home or self-care (01) ==
PROVIDERS: PCP Internal Medicine; Visit Provider Internal Medicine
DX: M43.12 Spondylolisthesis, cervical region (principal); R42 Dizziness and giddiness; M81.0 Age-related osteoporosis without current pathological fracture; G43.009 Migraine without aura, not intractable, without status migrainosus; I49.8 Other specified cardiac arrhythmias; M19.91 Primary osteoarthritis, unspecified site; G47.00 Insomnia, unspecified; F41.9 Anxiety disorder, unspecified
CPT/HCPCS: 99214

== ENCOUNTER 2023-11-24 17:15 | Outpatient (AMB) | payer BC, SELFPAY ==
[2023-11-24 17:17] VITALS: BP 130/80; PULSE 70; O2SAT 98; BMI 20.9
--- NOTE | 2023-11-24 17:17 | A.OFFPC_ITS ---
Vital Signs 11/24/23 17:17 Height 5 ft 7 in Weight 133 lb 6 oz BMI 20.9 BP 130/80 Blood Pressure Location Lt brachial Position Sitting Pulse 70 Pulse Source Pulse Oximeter Pulse Oximetry (%) 98 Oxygen Delivery Method Room Air Intake Visit Reasons: Follow up/vertigo Chemical Handler Required: No Accompanied by: Self / Same As Patient Allergies amoxicillin [AMOXICILLIN] Allergy (Severe, Verified 11/24/23 17:44) HIVES penicillamine [Cuprimine] Allergy (Severe, Verified 11/24/23 17:44) HIVES Penicillins [PENICILLINS] Allergy (Severe, Verified 11/24/23 17:44) HIVES Medication List - Last Reconciled 11/24/23 by Darin Maldonado MD calcium carbonate-vitamin D3 600 mg-10 mcg (400 unit) 2 tabs PO DAILY 90 days cyclobenzaprine 5 mg PO TID PRN gabapentin 200 mg (2 x 100 mg) PO BID 30 days melatonin 10 mg PO BEDTIME PRN rizatriptan mg PO Tobacco use date assessed: 10/15/23 Fall risk assessment: No Falls in past year Last assessed Fall Risk: 11/24/23 Dental Screening Dental Screen Date: 10/15/23 HPI Follow up/vertigo HPI Details Patient comes in today for her follow up visit States that her recurrent symptoms of vertigo appears to have finally calmed down recently States that she has been going to physical therapy for her vertigo for a while and that her sessions seem to have helped She was also using her Fluticasone nasal spray upon the advice of ENT although she stopped using this a couple of weeks ago She is still experiencing recurrent symptoms of tinnitus in her left ear but states that this has not gotten any worse over the past few months She is scheduled for her repeat bone density later this week and is looking forward to finding out how she did compared to her previous scan She reports experiencing increasing pain over the back of her neck recently, with occasional symptoms of tingling going down her left arm; also notes that her neck tends to crack very easily now and all she has to do is turn her neck to make it crack Would like to see if she can be referred back to PT as she recalls that they have also helped her a lot with the same problem a few years ago She denies any headaches or dizziness Denies any chest pains, no SOB No nausea/vomiting, no abdominal pain No change in bowel habits noted She also admits to experiencing increased anxiety often and plans to seek coun seling for this [facility] Medical History Status post placement of implantable loop recorder (~02/04/18) Insomnia Osteoporosis Brugada syndrome Osteoarthritis Migraine Surgical History History of colonoscopy History of total right hip arthroplasty History of breast surgery Family History Father No problems noted. Mother Alive and well Social History Housing: House Alcohol intake: current Alcohol intake frequency: holidays/special occasions only Patient Tobacco Use Status: Former Tobacco user Tobacco use type: Cigarette e-Cigarette/Vaping Use: Never Used Second Hand Smoke Exposure: Yes Advance Directives Date on File: 04/07/20 service: No Current occupational status: employed Cognitive needs: No Hearing needs: No Vision needs: Yes (Glasses) Questionnaire Thrive Questionnaire Date Thrive assessed: 10/15/23 LUKE-7 AMB Questionnaire LUKE-7 Date LUKE - 7 assessed: 10/15/23 Source: Developed by Drs. Cameron Randolph, Pamela Becerra, Cornelio Ruggiero and colleagues, with an educational barry from [employer]. Review of Systems Const Denies chills, Denies fatigue, Denies fever(s) and Denies headache(s) ENT Denies dysphagia, Reports vertigo (on and off but appears to have subsided recently), Denies otalgia, Denies headache(s), Reports neck pain (increasing lately - feel her neck 'crack' a lot when she turns her head), Denies odynophagia, Reports tinnitus (increasing, especially in the left ear) and Denies sore throat Card Denies chest pain, Denies rapid heart rate, Denies irregular heart rhythm, Denies palpitations and Denies dyspnea Resp Denies chest congestion, Denies cough, Denies dyspnea and Denies wheezing GI Denies abdominal pain, Denies constipation, Denies dysphagia, Denies heartburn, Reports loose stools (occasionally, mostly when she gets stressed), Denies nausea, Denies odynophagia and Denies vomiting Denies hematuria, Denies urinary frequency, Denies dysuria and Denies urinary urgency Musc Denies back pain, Denies arthralgias and Reports neck pain (increasing lately - feel her neck 'crack' a lot when she turns her head) Skin/Breast Denies rash Neuro Reports vertigo (on and off but appears to have subsided recently), Denies headache(s) and Denies paresthesias Psych Reports anxiety (increasing) and Denies depression Endo Denies fatigue and Denies palpitations Edis/Lymph Denies easy bruising Aller/Immun Denies wheezing Physical exam (Primary Care) Vital Signs: Last Vital Signs Pulse 70 11/24/23 17:17 BP 130/80 11/24/23 17:17 Pulse Ox 98 11/24/23 17:17 Oxygen Delivery Method Room Air 11/24/23 17:17 BMI result Body Mass Index 20.9 Tobacco/Smoking Status: Tobacco use Status Tobacco use date assessed 10/15/23 11/24/23 17:17 Patient Tobacco Use Status Former Tobacco user 11/24/23 17:17 Tobacco use type Cigarette 11/24/23 17:17 e-Cigarette/Vaping Use Never Used 11/24/23 17:17 Thrive Assessment: Date of Thrive Assessment Date Thrive assessed 10/15/23 11/24/23 17:17 Const General: no acute distress and alert Orientation/consciousness: patient oriented x3 HENMT Ears: TM's normal bilaterally and EAC's normal Throat: Yes posterior oropharynx normal and Yes tonsils normal (no TP congestion) Neck Neck: Yes no lymphadenopathy and Yes tender (over the cervical spine) Thyroid: Thyroid normal Resp Auscultation: clear to auscultation bilaterally, no rales and no wheezes Cardio Rate: regular rate Rhythm: regular rhythm Heart sounds: no murmurs GI Palpation (GI): Soft to palpation and nontender Auscultation: normal bowel sounds General: Yes no CVA tenderness Back/Spine/Pelvis Back: no CVA tenderness Cervical Spine: Cervical spine tenderness (mild) Thoracic/Lumbar Spine: No lumbar spinal tenderness Skin Rashes: no rashes Neuro General: patient oriented x3 Cognition (Neuro): normal cognition Extrem General: Yes no clubbing, cyanosis or edema Assessment and Plan Assessment & Plan (1) Spondylolisthesis, cervical region: Code(s): M43.12 - Spondylolisthesis, cervical region Plan: Cervical spine x-rays done back in March 2020 revealed (+) degenerative disc changes at C3-C4, C5-C6, and C6-C7, with variable facet degeneration and mild retrolisthesis at C3-C4 and mild anterior spondylolisthesis at C4-C5 Will send patient for repeat cervical spine x-rays for further evaluation/update on her condition Will also refer her to physical therapy for further evaluation and management, per her request (2) Osteoporosis: Code(s): M81.0 - Age-related osteoporosis without current pathological fracture Qualifiers: Osteoporosis type: age-related Presence of current pathological fracture: without current pathological fracture Qualified Code(s): M81.0 - Age- related osteoporosis without current pathological fracture Plan: BMD done in 06/2017 revealed (+) osteoporosis with lowest T-score value of -2.8 in the femoral neck Patient has been on Alendronate 70 mg once a week since 2017 and just recently completed 5 years of oral bisphosphonate Tx earlier this year Will reevaluate her response to Tx and consider other treatment options subsequently - will recheck her BMD SHAKA for follow up This was previously ordered but she was not able to get it done right away due to her 's significant health issues over the past couple of years but she is now scheduled to have this done in a few days She is encouraged/reminded to continue to stay active and exercise regularly and continue taking her daily oral Calcium and Vitamin D supplements Fall and injury precautions reinforced as well (3) Vertigo: Code(s): R42 - Dizziness and giddiness Plan: Resolved - she most likely has paroxysmal benign positional vertigo States that she was seen by ENT a few months ago and was advised that her exam came out mostly normal and was advised to continue with physical therapy for canalith positioning We also tried her empirically on oral Prednisone 20 mg QD x 5 days to see if this will calm down her symptoms of tinnitus and dizziness, as we suspected that she may have some labyrinthitis of the left ear that could be triggering her current symptoms, but patient did not think that prednisone helped much (4) Migraine: Code(s): G43.909 - Migraine, unspecified, not intractable, without status migrainosus Qualifiers: Migraine type: without aura Status migrainosus presence: without status migrainosus Intractability: not intractable Qualified Code(s): G43.009 - Migraine without aura, not intractable, without status migrainosus Plan: Appears controlled lately Reinforced avoidance of migraine triggers Continue Sumatriptan 50 mg PRN She was also started on Verapamil 40 mg Q HS for BOYD prophylaxis by neurology last year but it appears that she is no longer taking this and has not done so in a while Follow up with neurology (Dr. Quiros) as scheduled or as needed (5) Brugada syndrome: Code(s): I49.8 - Other specified cardiac arrhythmias Plan: Initially suspected on EKG sometime in 2018 - EKG revealed ST elevation and downsloping pattern in V2 Subsequent Holter monitoring and echocardiogram were unremarkable. Stress test revealed good exercise tolerance and a pattern of ST elevation in lead V2. 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 Brugada As she has never had any episodes of syncope or near-syncope, was determined to not be a candidate for ICD placement Patient underwent placement of an [employer] implantable loop recorder on 02/04/2018 and was monitored/evaluated for NSVT or VT episodes and any other concerning symptoms - it appears that this came out okay She has met with genetic counselor in [place] and they have discussed plan to have her family members, especially her daughter, meet with them sometime in the future for testing States that she currently feels well and continues to exercise regularly with no restrictions in terms of activity or exertion and has not had any concerning symptoms (including chest pains or SOB) so far Follow up with cardiology at [facility] as scheduled yearly (6) Osteoarthritis: Code(s): M19.90 - Unspecified osteoarthritis, unspecified site Qualifiers: Osteoarthritis location: unspecified site Osteoarthritis type: primary Qualified Code(s): M19.91 - Primary osteoarthritis, unspecified site Plan: Involving multiple joints Patient underwent total right hip arthroplasty on 08/21/2020, with significant improvement of her right hip pain and mobility Her other hip has been bothering her on and off although she continues to stay active and exercise and work out regularly Continue Celecoxib 200 mg BID PRN for pain Follow up with orthopedics as scheduled (7) Insomnia: Code(s): G47.00 - Insomnia, unspecified Qualifiers: Insomnia type: unspecified Qualified Code(s): G47.00 - Insomnia, unspecified Plan: Sleep hygiene reinforced Continue Melatonin 10 mg Q HS PRN (8) Anxiety: Code(s): F41.9 - Anxiety disorder, unspecified Plan: She could not tolerate Hydroxyzine when it was prescribed for her a few months ago She wanted to try something for her anxiety but does not want anything that can make her feel drowsy or tired She has been advised that most of the PRN meds for anxiety are benzodiazepines, which can cause drowsiness and are also potentially habit-forming She was previously started on low dose Sertraline 25 mg QD but she stopped taking it after a few days (9) Colon cancer screening: Code(s): Z12.11 - Encounter for screening for malignant neoplasm of colon Plan: Will refer her to [facility] for repeat colonoscopy She had her colonoscopy last done by Dr. Travis in 2019 and is now due for repeat (5 years recall) Plan To return in 6 months for her next annual physical examination Orders: Orders XR cervical spine 3V 11/24/23 M43.12 - Spondylolisthesis, cervical region PT Evaluation and Treatment 24 M43.12 - Spondylolisthesis, cervical region Complete Blood Count Auto Diff 6 Months D64.9 - Anemia, unspecified, Z00.00 - Encounter for general adult medical examination without abnormal findings Lipid Panel 6 Months E78.00 - Pure hypercholesterolemia, unspecified, Z00.00 - Encounter for general adult medical examination without abnormal findings UA CC w/rflx Micro + Cult 6 Months R30.0 - Dysuria, Z00.00 - Encounter for general adult medical examination without abnormal findings Comprehensive [place]. Panel Fast 6 Months E78.00 - Pure hypercholesterolemia, unspecified, Z00.00 - Encounter for general adult medical examination without abnormal findings TSH reflex Free T4 6 Months E78.00 - Pure hypercholesterolemia, unspecified, Z00.00 - Encounter for general adult medical examination without abnormal findings Vitamin D 25-OH Total 6 Months E55.9 - Vitamin D deficiency, unspecified, Z00.00 - Encounter for general adult medical examination without abnormal findings Vitamin B12 and Folate 6 Months E53.8 - Deficiency of other specified B group vitamins, Z00.00 - Encounter for general adult medical examination without abnormal findings Referrals Gastroenterology Referral Z12.11 - Encounter for screening for malignant neoplasm of colon Coding Level of Care Code Est Pt Level 4 (64759) Diagnoses Spondylolisthesis, cervical region M43.12 Age-related osteoporosis without current pathological fracture M81.0 Osteoporosis type: age-related Presence of current pathological fracture: without current pathological fracture Vertigo R42 Migraine without aura and without status migrainosus, not intractable G43.009 Migraine type: without aura Status migrainosus presence: without status migrainosus Intractability: not intractable Brugada syndrome I49.8 Primary osteoarthritis, unspecified site M19.91 Osteoarthritis location: unspecified site Osteoarthritis type: primary Insomnia, unspecified type G47.00 Insomnia type: unspecified Anxiety F41.9 Colon cancer screening Z12.11
== END 2023-11-24 18:01 | disposition home or self-care (01) ==
PROVIDERS: PCP Internal Medicine; Visit Provider Internal Medicine
DX: M43.12 Spondylolisthesis, cervical region (principal); M81.0 Age-related osteoporosis without current pathological fracture; R42 Dizziness and giddiness; G43.009 Migraine without aura, not intractable, without status migrainosus; I49.8 Other specified cardiac arrhythmias; M19.91 Primary osteoarthritis, unspecified site; G47.00 Insomnia, unspecified; F41.9 Anxiety disorder, unspecified; Z12.11 Encounter for screening for malignant neoplasm of colon
CPT/HCPCS: 99214

== ENCOUNTER 2023-11-27 08:06 | Outpatient (REF) | payer BC, SELFPAY ==
--- NOTE | ~2023-11-27 | MM_ITS ---
EXAMINATION: BONE DENSITOMETRY CLINICAL INDICATION: Menopause. COMPARISON: Baseline BD dated 07/17/2017. TECHNIQUE: Using a [employer] Here DXA System (software version: 13.1) manufactured by [employer], dual-energy x-ray absorptiometry was performed of the lumbar spine and left hip. The images are of good technical quality. Summary results are attached. FINDINGS: LEFT FEMUR, NECK: Current: BMD 0.678 g/cm2, Z-score -1.0, T-score -2.6, osteoporosis. Baseline: BMD 0.651 g/cm2. LEFT FEMUR, TOTAL: Current: BMD 0.636 g/cm2, Z-score -1.6, T-score -2.9, osteoporosis, 7.6% decrease from baseline (<5% change is not significant). Baseline: BMD 0.688 g/cm2. AP SPINE L1-L4: Current: BMD 0.878 g/cm2, Z-score -0.8, T-score -2.5, osteoporosis, 0.2% decrease from baseline (<5% change is not significant). Baseline: BMD 0.880 g/cm2. IDENTIFIED RISK FACTORS: Menopause, height loss, osteoporosis. HISTORY OF FRACTURE: None listed. MEDICATIONS: Calcium, vitamin D. MM/XR DEXA axial skeleton IMPRESSION: 1. DIAGNOSIS: Osteoporosis based on the lowest T-score value of -2.9 in the total femur applying World Health Organization criteria. 2. 10-YEAR FRACTURE RISK PREDICTION, FRAX: According to the guidelines, FRAX calculation should only be performed on patients in the osteopenia bone density category. Therefore, FRAX was not performed on this patient. 3. Treatment Recommendations: NOF guidelines recommend consideration for treatment in postmenopausal women and men age 50 and older presenting with the following: -A hip or vertebral (clinical or morphometric) fracture. -T-score less than or equal to -2.5 at the femoral neck or spine after appropriate evaluation to exclude secondary causes. -Low bone mass at the hip or spine and a 10-year fracture probability by FRAX of greater than or equal to 3% for hip fracture or greater than or equal to 20% for major osteoporotic fracture based on the [place] adapted WHO algorithm. 4. Other Recommendations: All treatment decisions require clinical judgment and consideration of individual patient factors, including patient preferences, comorbidities, previous drug use, risk factors not captured in the FRAX model (e.g. frailty, falls, vitamin D deficiency, increased bone turnover, interval significant decline in bone density) and possible under or overestimation of fracture risk by FRAX. Additional medical evaluation for secondary cause of low bone mineral density may be appropriate. FUTURE SCAN RECOMMENDATION: People with diagnosed cases of osteoporosis or at high risk for fracture should have regular bone mineral density tests. For patients eligible for Medicare, routine testing is allowed once every 2 years. The testing frequency can be increased to one year for patients who have rapidly progressing disease, those who are receiving or discontinuing medical therapy to restore bone mass, or have additional risk factors.
== END 2023-11-27 08:07 | disposition home or self-care (01) ==
LOC: HO.MAMMO 08:06
PROVIDERS: PCP Internal Medicine; Visit Provider Internal Medicine
DX: M81.0 Age-related osteoporosis without current pathological fracture (principal); Z78.0 Asymptomatic menopausal state
CPT/HCPCS: 77080

== ENCOUNTER 2024-01-30 16:14 | Outpatient (AMB) | payer BC, SELFPAY ==
[2024-01-30 16:17] VITALS: BP 126/76; PULSE 65; BMI 21.5
--- NOTE | 2024-01-30 16:17 | MHC.OFFVIS ---
Vital Signs 01/30/24 16:17 Height 5 ft 7 in Weight 137 lb 2.04 oz BMI 21.5 BP 126/76 Blood Pressure Location Lt brachial Position Sitting Pulse 65 Intake Visit Reasons: [place] s/p recall (2019) Intake Note: Patient in office today as a new patient for colonoscopy. CC: Patient states that she takes some MOM at night and this keeps her regular. Denies having any GI symptoms Allergies amoxicillin [AMOXICILLIN] Allergy (Severe, Verified 01/30/24 16:25) HIVES penicillamine [Cuprimine] Allergy (Severe, Verified 01/30/24 16:25) HIVES Penicillins [PENICILLINS] Allergy (Severe, Verified 01/30/24 16:25) HIVES HPI HPI [facility] s/p recall (2019): Details: 64 year old? female with past medical history of anxiety, vertigo, osteoporosis, osteoarthritis, Brugada syndrome most likely created by amitriptyline intake, currently off medication is here today for pre colonoscopy screening.? Patient was sent to us by her PCP.? ? Patient denies any gastrointestinal symptoms in the past or at present.? Denies any personal or family history of gastrointestinal disease, colon polyps, or CRC.? Patient normal colonoscopy in 2019, however due to history of tubular adenomas on past colonoscopies recommendation was made for 5 year follow-up. Denies history of difficulty with sedation or anesthesia in the past.? Negative for history of sleep apnea.? Denies any history of cardiac, renal, pulmonary, or hepatic disease.?? No history of infectious? diseases like hepatitis A, B, C, HIV or tuberculosis.? Patient is not on any anticoagulation [facility] Medical History Status post placement of implantable loop recorder (~02/04/18) Insomnia Osteoporosis Brugada syndrome Osteoarthritis Migraine Surgical History History of colonoscopy History of total right hip arthroplasty History of breast surgery Family History Father No problems noted. Mother Alive and well Social History Housing: House Alcohol intake: current Alcohol intake frequency: holidays/special occasions only Patient Tobacco Use Status: Former Tobacco user Tobacco use type: Cigarette e-Cigarette/Vaping Use: Never Used Second Hand Smoke Exposure: Yes Advance Directives Date on File: 04/07/20 service: No Current occupational status: employed Cognitive needs: No Hearing needs: No Vision needs: Yes (Glasses) Physical Exam Vital Signs: Last Vital Signs Pulse 65 01/30/24 16:17 BP 126/76 01/30/24 16:17 BMI result Body Mass Index 21.5 Const General: healthy appearing, no acute distress and well developed Nutritional Appearance: well nourished Orientation/consciousness: patient oriented x3 Resp Effort & Inspection: normal respiratory effort, able to speak in complete sentences, no tracheal deviation and symmetric chest movement Auscultation: clear to auscultation bilaterally Cardio Rate: regular rate GI Inspection: Yes normal to inspection and No distended Palpation (GI): Soft to palpation, not firm, nontender and No hepatosplenomegaly present Auscultation: normal bowel sounds General: Yes no CVA tenderness Back/Spine/Pelvis Back: no CVA tenderness Skin General skin exam: elasticity normal, turgor normal and dry skin Neuro General: patient oriented x3 Psych Appearance: grossly normal Mental Status: mental status grossly normal Assessment & Plan Assessment & Plan (1) Colon cancer screening: Code(s): Z12.11 - Encounter for screening for malignant neoplasm of colon Category: Medical Plan Patient denies any GI, cardiac or respiratory symptoms.? Denies any issues with anesthesia in the past.? Denies any history of sleep apnea.? No history infectious diseases in the past or present.? Not on any anticoagulation therapy.? No family or personal history of colon cancer.? Patient denies melena, hematochezia, unintentional weight loss or ribbon like stools.? Discussed at length the pre-procedure,? prep, diet & medications as well as what to expect prior, during and after the procedure.?? Stressed the importance of good bowel prep.? Recommended the use of Vaseline or Calmoseptine OTC & baby wipes with bowel movements to promote comfort.? ?Patient verbalizes understanding and agrees to plan of care.? She was given the opportunity to ask questions and all questions answered.? We will see her after the procedure.? Medications: New magnesium citrate Drink one bottle at 17:00 and 2nd bottle at 22:00 296 mL PO ONCE 296 mL 1RF Z12.11 - Encounter for screening for malignant neoplasm of colon bisacodyl (Dulcolax (bisacodyl)) take 4 tabs at noon the day before your colonoscopy 20 mg (4 x 5 mg) PO ONCE 4 tabs 0RF 1 day Z12.11 - Encounter for screening for malignant neoplasm of colon polyethylene glycol 3350 (Miralax) As directed by gastroenterology department at [facility] 238 grams PO ONCE 238 grams 0RF Z12.11 - Encounter for screening for malignant neoplasm of colon Coding Level of Care Code New Pt Level 3 (05626) Diagnoses Colon cancer screening Z12.11 Time Spent (min) 40 Comment 30 minutes spent with patient and additional 10 minutes spent reviewing her records
== END 2024-01-30 16:50 | disposition home or self-care (01) ==
PROVIDERS: PCP Internal Medicine; Visit Provider Nurse Practitioner Family
DX: Z01.818 Encounter for other preprocedural examination (principal); Z12.11 Encounter for screening for malignant neoplasm of colon
CPT/HCPCS: S0285

== ENCOUNTER → 2024-01-30 16:14 | Outpatient (BNVA) | payer BC, SELFPAY | PROVIDERS: PCP Internal Medicine; Visit Provider Nurse Practitioner Family ==

== ENCOUNTER 2024-06-07 17:28 | Outpatient (AMB) | payer BC, SELFPAY ==
[2024-06-07 17:30] VITALS: BP 110/80; PULSE 71; O2SAT 98; BMI 21.5
--- NOTE | 2024-06-07 17:30 | A.OFFPC_ITS ---
Vital Signs 06/07/24 17:30 Height 5 ft 7 in Weight 137 lb 2 oz BMI 21.5 BP 110/80 Blood Pressure Location Lt brachial Position Sitting Pulse 71 Pulse Source Pulse Oximeter Pulse Oximetry (%) 98 Oxygen Delivery Method Room Air Intake Visit Reasons: annual exam Mine Manager Required: No Accompanied by: Self / Same As Patient Allergies amoxicillin [AMOXICILLIN] Allergy (Severe, Verified 06/07/24 17:42) HIVES penicillamine [Cuprimine] Allergy (Severe, Verified 06/07/24 17:42) HIVES Penicillins [PENICILLINS] Allergy (Severe, Verified 06/07/24 17:42) HIVES Medication List - Last Reconciled 06/07/24 by Darin Maldonado MD bisacodyl (Dulcolax (bisacodyl)) 20 mg (4 x 5 mg) PO ONCE 1 day calcium carbonate-vitamin D3 600 mg-10 mcg (400 unit) 2 tabs PO DAILY 90 days cyclobenzaprine 5 mg PO TID PRN gabapentin 300 mg (3 x 100 mg) PO BEDTIME magnesium citrate 296 mL PO ONCE polyethylene glycol 3350 (Miralax) 238 grams PO ONCE rizatriptan 10 mg PO ONCE PRN ropinirole 0.5 mg PO BEDTIME 30 days Tobacco use date assessed: 06/07/24 Fall risk assessment: No Falls in past year Last assessed Fall Risk: 06/07/24 Dental Screening Dental Screen Date: 06/07/24 Did you have a dental visit in the last 12 months?: Yes Did you have a dental problem in the last 6 months where you did not have access to dental care?: No Was dental information given to patient?: Patient has dentist HPI annual exam HPI Details Patient comes in today for her annual physical examination States that she feels okay She denies any headaches or dizziness Denies any chest pains, no SOB No nausea/vomiting, no abdominal pain No change in bowel habits noted She denies any acute urinary symptoms States that she was not able to get her follow up labs done prior to her appointment today as she has been busy over the past few months trying to convince and eventually help her mother move into an assisted living facility States that she will try to go and get her labs done sometime before She is scheduled for her repeat colonoscopy later this week on 06/10/2024 She last had her annual mammogram done at [facility] in May 2023 and thinks she is scheduled for her next one sometime in June 2024 She also has her annual gynecology exam and pap smear scheduled with her new media strategist at [facility] next month (June 2024) She had her BMD last done in November 2023 and would like to go over the results of her scan in more details [facility] Medical History (Updated 06/07/24 @ 19:16 by Darin Maldonado MD) Status post placement of implantable loop recorder (~02/04/18) Insomnia Osteoporosis Brugada syndrome Osteoarthritis Migraine Surgical History History of colonoscopy History of total right hip arthroplasty History of breast surgery Family History Father No problems noted. Mother Alive and well Social History Housing: House Alcohol intake: current Alcohol intake frequency: holidays/special occasions only Patient Tobacco Use Status: Former Tobacco user Tobacco use type: Cigarette e-Cigarette/Vaping Use: Never Used Second Hand Smoke Exposure: Yes Advance Directives Date on File: 04/07/20 service: No Current occupational status: employed Cognitive needs: No Hearing needs: No Vision needs: Yes (Glasses) Questionnaire PHQ-9 Over the last 2 weeks, how often have you been bothered by any of the following problems? 1. Little interest or pleasure in doing things: not at all 2. Feeling down, depressed, or hopeless: not at all 3. Trouble falling or staying asleep, or sleeping too much: not at all 4. Feeling tired or having little energy: not at all 5. Poor appetite or overeating: not at all 6. Feeling bad about yourself - or that you are a failure or have let yourself or your family down: not at all 7. Trouble concentrating on things, such as reading the newspaper or watching television: not at all 8. Moving or speaking so slowly that other people could have noticed. Or the opposite - being so fidgety or restless that you have been moving around a lot more than usual: not at all 9. Thoughts that you would be better off or of hurting yourself in some way: not at all Total score: 0 Depression Screening Interpretation: Negative Depression Screening Done: Yes 34709 - PHQ-9 Billing: Yes Source: Developed by Drs. Cameron Randolph, Pamela Becerra, Cornelio Ruggiero and colleagues, with an educational barry from [email or web address]. Thrive Questionnaire Date Thrive assessed: 06/07/24 I am a: Patient What is your living situation today?: I have a steady place to live Within the past 12 months, did the food you bought not last and you didn't have the money to get more?: I choose not to answer this question Within the past 12 months, did you worry whether your food would run out before you got money to buy more?: I choose not to answer this question Do you have trouble paying for medicines?: No Do you have trouble getting transportation to medical appointments?: No Do you have trouble paying your heating and electricity bill?: No Do you have trouble taking care of your child, family member or friend?: No Do you have trouble with day-to-day activities such as bathing, preparing meals, shopping, managing finances, etc.?: No Are you currently unemployed and looking for a job?: Yes Are you interested in more education?: No Please select the resources that you would like help with: None Currently or been in a relationship where the following occur: No concerns reported THRIVE Score: 0 AUDIT C Alcohol Use Questionnaire (AUDIT-C) 1. How often do you have a drink containing alcohol?: Monthly or less 2. How many drinks containing alcohol do you have on a typical day when you are drinking?: 1 or 2 3. How often do you have six or more drinks on one occasion?: Never Total Score: 1 Score Reviewed/Action Taken: Yes LUKE-7 AMB Questionnaire LUKE-7 Date LUKE - 7 assessed: 06/07/24 Feeling nervous, anxious, or on edge: 0 = Not at all Not being able to stop or control worryin = Not at all Worrying too much about different things: 0 = Not at all Trouble relaxin = Not at all Being so restless that it is hard to sit still: 0 = Not at all Becoming easily annoyed or irritable: 0 = Not at all Feeling afraid as if something awful might happen: 0 = Not at all Total LUKE-7 score (0-4 normal; 5-9 mild; 10-14 moderate; 15-21 severe): 0 Source: Developed by Drs. Cameron Randolph, Pamela Becerra, Cornelio Ruggiero and colleagues, with an educational barry from [email or web address]. Review of Systems Const Denies chills, Denies fatigue, Denies fever(s), Denies headache(s) and Denies malaise Eyes Denies blurry vision, Denies change in vision, Denies irritation and Denies itchy eyes ENT Denies dysphagia, Denies dizziness, Denies otalgia, Denies headache(s), Denies nasal congestion, Reports neck pain, Denies odynophagia, Denies sinus pain and Denies sore throat Card Denies chest pain, Denies rapid heart rate, Denies irregular heart rhythm, Denies palpitations and Denies dyspnea Resp Denies chest congestion, Denies cough, Denies dyspnea and Denies wheezing GI Denies abdominal pain, Denies bloating, Denies constipation, Denies dysphagia, Denies heartburn, Denies diarrhea, Denies nausea, Denies odynophagia and Denies vomiting Denies hematuria, Denies urinary frequency, Denies dysuria, Denies urinary incontinence and Denies urinary urgency Musc Denies back pain, Denies arthralgias, Denies joint swelling, Denies muscle weakness and Reports neck pain Skin/Breast Denies breast pain, Denies breast mass, Denies change in pigmentation, Denies lesions, Denies rash and Denies unusual bruising Neuro Denies dizziness, Denies headache(s) and Denies paresthesias Psych Denies anxiety and Denies depression Endo Denies fatigue and Denies palpitations Edis/Lymph Denies easy bruising Aller/Immun Denies itchy eyes and Denies wheezing Physical exam (Primary Care) Vital Signs: Last Vital Signs Pulse 71 06/07/24 17:30 BP 110/80 06/07/24 17:30 Pulse Ox 98 06/07/24 17:30 Oxygen Delivery Method Room Air 06/07/24 17:30 BMI result Body Mass Index 21.5 Tobacco/Smoking Status: Tobacco use Status Tobacco use date assessed 06/07/24 06/07/24 17:34 Patient Tobacco Use Status Former Tobacco user 06/07/24 17:34 Tobacco use type Cigarette 06/07/24 17:34 e-Cigarette/Vaping Use Never Used 06/07/24 17:34 PHQ-9: PHQ-9 Score PHQ-9: Total score 0 06/07/24 17:43 Depression Screening Interpretation: Negative Thrive Assessment: Date of Thrive Assessment Date Thrive assessed 06/07/24 06/07/24 17:34 Currently or been in a relationship where the following occur: No concerns reported Const General: no acute distress, alert and awake Orientation/consciousness: patient oriented x3 HENMT Head: Yes normocephalic and Yes atraumatic Ears: external ears normal, TM's normal bilaterally and EAC's normal General nose exam: No nasal discharge present Face and sinus: Yes normal facial exam and Yes sinuses nontender Teeth and gingiva: dentition normal Throat: Yes posterior oropharynx normal and Yes tonsils normal (no TP congestion) Eyes Eyelids: Yes eyelids normal Conjunctivae: conjunctivae normal Pupils: Equal, round and reactive pupils present EOM: EOMs intact bilaterally Neck Neck: Yes no lymphadenopathy Thyroid: Thyroid normal Resp Auscultation: clear to auscultation bilaterally, no rales and no wheezes Cardio Rate: regular rate Rhythm: regular rhythm Heart sounds: no murmurs GI Palpation (GI): Soft to palpation, nontender and No hepatosplenomegaly present Auscultation: normal bowel sounds General: Yes no CVA tenderness Back/Spine/Pelvis Back: no CVA tenderness Cervical Spine: Cervical spine tenderness Thoracic/Lumbar Spine: No lumbar spinal tenderness Skin Lesions: no lesions Rashes: no rashes Neuro General: patient oriented x3, moves all extremities, no focal motor deficits and CN's II-XI intact bilaterally Cranial nerves: Yes Equal, round and reactive pupils present Cognition (Neuro): normal cognition Gait exam (Neuro): Normal gait present Extrem General: Yes no clubbing, cyanosis or edema Coding Level of Care Code Est Pt Prev Care >65y(23179) Diagnoses Annual physical exam Z00.00 Spondylolisthesis, cervical region M43.12 Age-related osteoporosis without current pathological fracture M81.0 Osteoporosis type: age-related Presence of current pathological fracture: without current pathological fracture Migraine without aura and without status migrainosus, not intractable G43.009 Migraine type: without aura Status migrainosus presence: without status migrainosus Intractability: not intractable Brugada syndrome I49.8 Primary osteoarthritis, unspecified site M19.91 Osteoarthritis location: unspecified site Osteoarthritis type: primary Insomnia, unspecified type G47.00 Insomnia type: unspecified Anxiety F41.9 Additional Codes PHQ-9 - 07341 - PHQ-9 Billing: Yes ([id number]) Assessment & Plan Assessment & Plan (1) Annual physical exam: Code(s): Z00.00 - Encounter for general adult medical examination without abnormal findings Category: Medical Plan: Check labs SHAKA - her previously ordered labs are all updated and patient states that she will try to get these done as soon as she can She is scheduled for her repeat colonoscopy later this week on 06/10/2024 She last had her annual mammogram done at [facility] in May 2023 and thinks she is scheduled for her next one sometime in June 2024 She also has her annual gynecology exam and pap smear scheduled with her new media strategist at [facility] next month (June 2024) (2) Spondylolisthesis, cervical region: Code(s): M43.12 - Spondylolisthesis, cervical region Category: Medical Plan: Cervical spine x-rays done back in March 2020 revealed (+) degenerative disc changes at C3-C4, C5-C6, and C6-C7, with variable facet degeneration and mild retrolisthesis at C3-C4 and mild anterior spondylolisthesis at C4-C5 She was previously referred to physical therapy, which she states have helped somewhat and her neck pain has been mostly manageable lately (3) Osteoporosis: Comment: s/p Tx with Alendronate from 2017 to 2022 Code(s): M81.0 - Age-related osteoporosis without current pathological fracture Category: Medical Qualifiers: Osteoporosis type: age-related Presence of current pathological fracture: without current pathological fracture Qualified Code(s): M81.0 - Age- related osteoporosis without current pathological fracture Plan: Her initial BMD done in 06/2017 revealed (+) osteoporosis with lowest T-score value of -2.8 in the femoral neck Patient has been on Alendronate 70 mg once a week since 2017 and just recently completed 5 years of oral bisphosphonate Tx this past year (2022) Fall and injury precautions reinforced She is reminded to continue to stay active and exercise regularly and continue taking her daily oral Calcium and Vitamin D supplements She was finally able to get her repeat BMD done in November 2023 - repeat BMD revealed (+) osteoporosis based on the lowest T-score value of -2.9 in the total femur Her BMD in the left femur revealed a 7.6% decrease from baseline and a 0.2% decreased from baseline in the AP spine Will send her for some additional labs (Ntx Crosslinks) for further evaluation and depending on how this comes out, will consider starting her on other medications for her osteoporosis like Prolia or Evenity (4) Migraine: Code(s): G43.909 - Migraine, unspecified, not intractable, without status migrainosus Category: Medical Qualifiers: Migraine type: without aura Status migrainosus presence: without status migrainosus Intractability: not intractable Qualified Code(s): G43.009 - Migraine without aura, not intractable, without status migrainosus Plan: Her migraine headaches appear controlled lately Reinforced avoidance of migraine triggers Continue Sumatriptan 50 mg PRN She was also started on Verapamil 40 mg Q HS for BOYD prophylaxis by neurology last year but it appears that she is no longer taking this and has not been taking it in a while now Follow up with neurology (Dr. Quiros) as scheduled or as needed (5) Brugada syndrome: Code(s): I49.8 - Other specified cardiac arrhythmias Category: Medical Plan: This was initially suspected on EKG sometime in 2018 - EKG revealed ST elevation and downsloping pattern in V2 Subsequent Holter monitoring and echocardiogram were unremarkable. Stress test revealed good exercise tolerance and a pattern of ST elevation in lead V2. 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 Brugada As she has never had any episodes of syncope or near-syncope, was determined to not be a candidate for ICD placement Patient underwent placement of an [employer] implantable loop recorder on 02/04/2018 and was monitored/evaluated for NSVT or VT episodes and any other concerning symptoms - it appears that this came out okay She has met with a genetic counselor in [place] and they have discussed plan to have her family members, especially her daughter, meet with them sometime in the future for testing States that she currently feels well and continues to exercise regularly with no restrictions in terms of activity or exertion and has not had any concerning symptoms (including chest pains or SOB) so far Follow up with cardiology at [facility] as scheduled yearly (6) Osteoarthritis: Code(s): M19.90 - Unspecified osteoarthritis, unspecified site Category: Medical Qualifiers: Osteoarthritis location: unspecified site Osteoarthritis type: primary Qualified Code(s): M19.91 - Primary osteoarthritis, unspecified site Plan: Involving multiple joints Patient underwent total right hip arthroplasty on 08/21/2020, with significant i mprovement of her right hip pain and mobility Her other hip has been bothering her on and off although she continues to stay active and exercise and work out regularly Continue Celecoxib 200 mg BID PRN for pain Follow up with orthopedics as scheduled (7) Insomnia: Code(s): G47.00 - Insomnia, unspecified Category: Medical Qualifiers: Insomnia type: unspecified Qualified Code(s): G47.00 - Insomnia, unspecified Plan: Sleep hygiene reinforced Continue Melatonin 10 mg Q HS PRN (8) Anxiety: Code(s): F41.9 - Anxiety disorder, unspecified Category: Medical Plan: She could not tolerate Hydroxyzine when it was prescribed for her last year She wanted to try something for her anxiety but does not want anything that can make her feel drowsy or tired She has been advised that most of the PRN meds for anxiety are benzodiazepines, which can cause drowsiness and are also potentially habit-forming She was previously started on low dose Sertraline 25 mg QD but she stopped taking it after a few days and did not wish to continue Plan Follow up in 6 months Orders: Orders Collagen Crosslinks NTX Today M81.0 - Age-related osteoporosis without current pathological fracture
== END 2024-06-07 18:12 | disposition home or self-care (01) ==
PROVIDERS: PCP Internal Medicine; Visit Provider Internal Medicine
DX: Z00.00 Encounter for general adult medical examination without abnormal findings (principal); M43.12 Spondylolisthesis, cervical region; M81.0 Age-related osteoporosis without current pathological fracture; G43.009 Migraine without aura, not intractable, without status migrainosus; I49.8 Other specified cardiac arrhythmias; M19.91 Primary osteoarthritis, unspecified site; G47.00 Insomnia, unspecified; F41.9 Anxiety disorder, unspecified

== ENCOUNTER → 2024-06-07 17:28 | Outpatient (BNVA) | payer BC, SELFPAY | PROVIDERS: PCP Internal Medicine; Visit Provider Internal Medicine | DX: Z00.00 Encounter for general adult medical examination without abnormal findings (principal); M43.12 Spondylolisthesis, cervical region; M81.0 Age-related osteoporosis without current pathological fracture; G43.009 Migraine without aura, not intractable, without status migrainosus; I49.8 Other specified cardiac arrhythmias; M19.91 Primary osteoarthritis, unspecified site; G47.00 Insomnia, unspecified; F41.9 Anxiety disorder, unspecified; Z79.899 Other long term (current) drug therapy | CPT/HCPCS: 96127 ==

== ENCOUNTER 2024-06-10 07:32 | Day surgery (SDC) | payer BC, SELFPAY ==
[2024-06-08 13:51] VITALS: BMI 21.5
--- NOTE | 2024-06-10 07:46 | ECG_ITS ---
Test Reason : Brugada Blood Pressure : / mmHG Vent. Rate : 068 BPM Atrial Rate : 068 BPM P-R Int : 166 ms QRS Dur : 102 ms QT Int : 412 ms P-R-T Axes : 074 066 058 degrees QTc Int : 438 ms Normal sinus rhythm Normal ECG No previous ECGs available Referred By: Antonia Reyes Electronically Signed By:
[2024-06-10 07:56] VITALS: BMI 20.8
[2024-06-10] MEDS: Lactated Ringers 1,000 ML 100 ML IVCONT (08:14)
[2024-06-10 08:19] VITALS: BP 140/89; PULSE 67; RESP 18; TEMP 36.6; O2SAT 96
--- NOTE | 2024-06-10 08:37 | MHC.SHP ---
Pre-Procedural Eval Section A - 24 Hr Update-Section A only Date of Service: 06/10/24 Section B - Complete if H&P > 30 days Chief Complaint: screening Relevant Family History (Specify if Yes): No Relevant Social History: None Present Medications: see Short Stay Collaborative assessment Medical History: Significant History (Status post placement of implantable loop recorder (~02/04/18) Insomnia Osteoporosis Brugada syndrome Osteoarthritis Migraine) History of Previous Operations: Relevant previous surgery/procedure and date(s) (History of colonoscopy History of total right hip arthroplasty History of breast surgery) Allergies: Allergies Allergy/AdvReac Type Severity Reaction Status Date / Time amoxicillin [AMOXICILLIN] Allergy Severe HIVES Verified 06/10/24 07:57 penicillamine [Cuprimine] Allergy Severe HIVES Verified 06/10/24 07:57 Penicillins [PENICILLINS] Allergy Severe HIVES Verified 06/10/24 07:57 Review of Systems Sugical H&P ROS: Negative: Constitution, Cardiovascular, Respiratory, Neurological, Psychiatric, Hem-Onc, Allergic/Immunologic, Gastrointestinal, Genitourinary, Musculoskeletal, Integumentary, Endocrine and Eyes/Ears/Nose/Throat Exam Surgical H&P Exam: Normal: HEENT, Normal: Heart, Normal: Lungs, Normal: Extremities, Normal: Abdomen, Normal: Skin and Normal: Neurological Plan Diagnosis/Plan: Unchanged I have reviewed the history and physical and performed a pertinent physical examination on my patient. No changes have occurred unless specified. Time Spent With Patient Time: Total time managing care of this patient today ____ minutes.
--- NOTE | 2024-06-10 08:40 | P.CONAN_ITS ---
Documented by User: Antonia Reyes NP 06/09/24 13:07 HPI - Anesthesia Eval Consult details Narrative: 63yo F for Colonoscopy Brugada dx'd 2017. Follows [facility] yearly. Last visit 01/2024 - stable with good activity tolerance. Not a candidate for ICD, loop recorder removed 2021 No EKG avail per fax request to [facility]. Will obtain DOS PMFSH Active Problems Active Problems: All Active Problems Colon cancer screening (Acute) Vertigo (Acute) Tinnitus (Acute) Anxiety (Acute) Insomnia (Acute) Osteoporosis (Acute) Brugada syndrome (Acute) Annual physical exam (Acute) Tick bite (Acute) Osteoarthritis (Acute) Migraine (Acute) Spondylolisthesis, cervical region (Acute) Bright red blood per rectum (Acute) Neuropathy, cervical (radicular) (Acute) Arthrosis of first carpometacarpal joint (Acute) Dysuria (Acute) Past Medical History Medical History Status post placement of implantable loop recorder (~02/04/18) Insomnia Osteoporosis Brugada syndrome Osteoarthritis Migraine Family History Family History Father No problems noted. Mother Alive and well Surgical History Surgical History History of colonoscopy History of total right hip arthroplasty History of breast surgery Social History Social History Housing: House Are you a primary healthcare economics consultant to a significant other at home: No Do you presently have visiting nurse or other home services: No Alcohol intake: current Alcohol intake frequency: holidays/special occasions only Patient Tobacco Use Status: Former Tobacco user Tobacco use type: Cigarette e-Cigarette/Vaping Use: Never Used Second Hand Smoke Exposure: Yes Have you been hit, kicked, punched, or otherwise hurt by someone within the past year? If so, by whom?: No Are you DNR?: No Advance Directives: No Advance Directives Information Provided: Yes Advance Directives Date on File: 04/07/20 Recently lost weight without trying: No Nutrition Risks: No Nutritional Risk service: No Current occupational status: employed Cognitive needs: No Hearing needs: No Vision needs: Yes (Glasses) Meds Allergies Allergy/AdvReac Type Severity Reaction Status Date / Time amoxicillin [AMOXICILLIN] Allergy Severe HIVES Verified 06/10/24 07:57 penicillamine [Cuprimine] Allergy Severe HIVES Verified 06/10/24 07:57 Penicillins [PENICILLINS] Allergy Severe HIVES Verified 06/10/24 07:57 Home Medications ?Medication ?Instructions ?Recorded ?Confirmed ?Last Taken ?Type rizatriptan 10 mg tablet 10 mg PO ONCE PRN Migraine Headache 01/30/24 06/10/24 06/10/24 History Exam Height,Weight and Vital Signs: Height 5 ft 7 in Weight 62.157 kg Assessment and Plan Assessment Anesthesia Assessment: Chart Reviewed Documented by User: Cielo Chavez DO 06/10/24 08:44 HPI - Anesthesia Eval Consult details Narrative: 63yo F for Colonoscopy Brugada dx'd 2017. Follows [facility] yearly. Last visit 01/2024 - stable with good activity tolerance. Not a candidate for ICD, loop recorder removed 2021. EKG today showed NSR. PMFSH Past Medical History Medical History Status post placement of implantable loop recorder (~02/04/18) Insomnia Osteoporosis Brugada syndrome Osteoarthritis Migraine Family History Family History Father No problems noted. Mother Alive and well Family history of problems with anesthesia: No Surgical History Surgical History History of colonoscopy History of total right hip arthroplasty History of breast surgery History of Problems with Anesthesia: No Social History Social History Housing: House Are you a primary healthcare economics consultant to a significant other at home: No Do you presently have visiting nurse or other home services: No Alcohol intake: current Alcohol intake frequency: holidays/special occasions only Patient Tobacco Use Status: Former Tobacco user Tobacco use type: Cigarette e-Cigarette/Vaping Use: Never Used Second Hand Smoke Exposure: Yes Have you been hit, kicked, punched, or otherwise hurt by someone within the past year? If so, by whom?: No Are you DNR?: No Advance Directives: No Advance Directives Information Provided: Yes Advance Directives Date on File: 04/07/20 Recently lost weight without trying: No Nutrition Risks: No Nutritional Risk service: No Current occupational status: employed Cognitive needs: No Hearing needs: No Vision needs: Yes (Glasses) Meds Allergies Allergy/AdvReac Type Severity Reaction Status Date / Time amoxicillin [AMOXICILLIN] Allergy Severe HIVES Verified 06/10/24 07:57 penicillamine [Cuprimine] Allergy Severe HIVES Verified 06/10/24 07:57 Penicillins [PENICILLINS] Allergy Severe HIVES Verified 06/10/24 07:57 Home Medications ?Medication ?Instructions ?Recorded ?Confirmed ?Last Taken ?Type rizatriptan 10 mg tablet 10 mg PO ONCE PRN Migraine Headache 01/30/24 06/10/24 06/10/24 History Exam Exam Date and Time: 06/10/24 0840 Height,Weight and Vital Signs: Height 5 ft 7 in Weight 62.157 kg Vital Signs Temperature 97.9 F 06/10/24 08:19 Pulse Rate 67 06/10/24 08:19 Respiratory Rate 18 06/10/24 08:19 Blood Pressure 140/89 H 06/10/24 08:19 Pulse Oximetry 96 06/10/24 08:19 Oxygen Delivery Method Room Air 06/10/24 08:19 Temperature 97.9 F 06/10/24 08:19 Pulse Rate 67 06/10/24 08:19 Respiratory Rate 18 06/10/24 08:19 Blood Pressure 140/89 H 06/10/24 08:19 Pulse Oximetry 96 06/10/24 08:19 Oxygen Delivery Method Room Air 06/10/24 08:19 Airway Mallampati Class: I TM Dist: >3cm Neck ROM: Full Loose/Missing/Broken Teeth: No (patient denies any loose or broken teeth) Heart: S1S2 Lungs: CTAB Assessment and Plan Assessment Anesthesia Assessment: Anesthesia Plan Discussed and Chart Reviewed Final Anesthetic Review Family History of Problems with Anesthesia: No History of Problems with Anesthesia: No NPO: Yes ASA Class: II Final Preanesthetic Review: No Changes in Pt Med Stat, Meds/Allgs Chart Reviewed, Consent Obtained/Reviewed and Anes Risks/Benef Reviewed Patient Risk: Low Procedure Risk: Low Anesthetic Plan Anesthetic Plan: MAC: and Agree w/ Assess. and Plan Disposition: Standard PACU
--- NOTE | 2024-06-10 09:54 | HO.OPN-COLON ---
Colonoscopy Operative Note Operative Note Date of Service: 06/10/24 Narrative: Operative Information Procedure Description: Colonoscopy Indication: screening Anesthesia: MAC COLONOSCOPY Instrument: Olympus variable stiffness pediatric scope 190L Colonoscopy Monitoring: Vital signs and clinical assessment, continuous EKG monitoring, Pulse oximetry, Carbon Dioxide monitoring and blood pressure monitoring were done throughout the procedure. Colon withdrawal time was 5 minutes. Procedure: The patient was placed in the left lateral decubitis position and pre-procedure medications were administered. After a digital rectal examination of the ano-rectum, the video colonoscope was inserted into the rectum and advanced through the colon to the cecum/TI. The colonoscope was slowly withdrawn in a retrograde panoramic fashion and the colon mucosa was carefully examined including a retroflexed view of the rectum. Findings and interventions are described below. Procedure Difficulty: moderate, trotuous colon Findings: Terminal Ileum-not intubated Cecum:normal Ascending Colon: normal Transverse Colon -normal Descending Colon:normal Sigmoid Colon: normal Rectum: Retroflexion with medium sized internal hemorrhoids seen, grade I Anorectum - normal Intervention: none Colon preparation: [place] Bowel Preparation Scale Right colon; 1 Transverse colon: 1 Left colon; 1-2 (0 = Unprepared colon segment with mucosa not seen due to solid stool that cannot be cleared. 1 = Portion of mucosa of the colon segment seen, but other areas of the colon segment not well seen due to staining, residual stool and/or opaque liquid. 2 = Minor amount of residual staining, small fragments of stool and/or opaque liquid, but mucosa of colon segment seen well. 3 = Entire mucosa of colon segment seen well with no residual staining, small fragments of stool or opaque liquid) Impression and Post Procedure Diagnosis: poor prep internal hemorrhoids Plan: High fiber diet leaflet Avoid straining at stool, epsom salts and sitz bath, anusol supps or cream Repeat Colonoscopy in 6-8 month with 2 d of clear liquids, and review instructions again or earlier if clinically indicated Above findings were reviewed with the patient and relevant handouts were provided if indicated.
[2024-06-10 10:05] VITALS: BP 102/60; PULSE 65; RESP 19; TEMP 36.3; O2SAT 98
[2024-06-10 10:20] VITALS: BP 124/64; PULSE 65; RESP 19; O2SAT 98
== END 2024-06-10 11:28 | disposition home or self-care (01) ==
PROVIDERS: PCP Internal Medicine; Visit Provider Internal Medicine Gastroenterology
PROC: 0DJD8ZZ Inspection of Lower Intestinal Tract, Via Natural or Artificial Opening Endoscopic (ICD-10-PCS; CPT 45378; principal; 2024-06-10 09:10)
DX: Z12.11 Encounter for screening for malignant neoplasm of colon (principal); Z86.0101 Personal history of adenomatous and serrated colon polyps; Q43.8 Other specified congenital malformations of intestine; K64.0 First degree hemorrhoids; I49.8 Other specified cardiac arrhythmias; Z95.818 Presence of other cardiac implants and grafts; M81.0 Age-related osteoporosis without current pathological fracture; G43.909 Migraine, unspecified, not intractable, without status migrainosus; G47.00 Insomnia, unspecified; M19.90 Unspecified osteoarthritis, unspecified site; F41.9 Anxiety disorder, unspecified; Z96.641 Presence of right artificial hip joint; Z79.899 Other long term (current) drug therapy; Z88.0 Allergy status to penicillin; Z98.890 Other specified postprocedural states; Z87.891 Personal history of nicotine dependence
CPT/HCPCS: 45378; 93005; J2003

== ENCOUNTER → 2024-06-10 07:32 | Outpatient (BNV) | payer BC, SELFPAY | PROVIDERS: PCP Internal Medicine; Visit Provider Internal Medicine Gastroenterology | DX: Z12.11 Encounter for screening for malignant neoplasm of colon (principal); K64.0 First degree hemorrhoids; Z91.199 Patient's noncompliance with other medical treatment and regimen due to unspecified reason | CPT/HCPCS: 45378 ==

== ENCOUNTER 2024-06-14 10:37 | Outpatient (REF) | payer BC, SELFPAY ==
[2024-06-14 11:08] LABS: MANUAL DIFF FLAG NO
[2024-06-14 11:16] LABS: Basophils Absolute Auto 0.1 X10*3/uL (0.0-0.2); Basophils Percent Auto 1.3 % (0-2); Eosinophils Absolute Auto 0.3 X10*3/uL (0.0-0.4); Eosinophils Percent Auto 4.8 % (0-4); Imm Gran Abs Auto 0.01 X10*3/uL (0.00-0.03); Imm Gran Pct Auto 0.1 % (0.0-0.4); Lymphocytes Absolute Auto 2.3 X10*3/uL (1.2-4.9); Lymphocytes Percent Auto 32.4 % (20-40); Mean Corpuscular HGB Conc 33.3 g/dl (31.0-35.0); Mean Corpuscular Hemoglobin 29.9 pg (27.0-33.0); Mean Corpuscular Volume 89.7 fL (80.0-98.0); Mean Platelet Volume 8.6 fL (9.4-12.3); Monocytes Absolute Auto 0.7 X10*3/uL (0.1-1.2); Neutrophils Absolute Auto 3.7 x10*3/uL (2.0-8.3); Neutrophils Percent Auto 51.4 % (45-73); Platelet Count 315 X10*3/uL (160-400); Red Blood Count 4.68 X10*6/uL (4.20-5.50); Red Cell Distribution Width 12.1 % (11.0-16.0); White Blood Count 7.1 X10*3/uL (4.8-10.8)
[2024-06-14 12:20] LABS: Alanine Aminotransferase 37 U/L (0-31); Albumin Level 4.4 g/dL (3.5-5.0); Alkaline Phosphatase 75 U/L (39-117); Anion Gap 10 (12-20); Aspartate Amino Transferase 32 U/L (5-31); Bilirubin Total 0.3 mg/dL (0.0-1.0); Blood Urea Nitrogen 14 mg/dL (9-16); Calcium 9.7 mg/dL (8.4-10.2); Carbon Dioxide 30 mmol/L (22-29); Chloride 105 mmol/L (96-108); Cholesterol 189 mg/dL (<200); Estimated Glomerular Filt Rate > 60; Glucose Fasting 96 mg/dL (60-99); HDL Cholesterol 77 mg/dL (>40); LDL Cholesterol Calculated 101 mg/dL (<100); Potassium 4.6 mmol/L (3.3-5.1); Sodium 140 mmol/L (135-145); Total Protein 7.5 g/dL (6.5-8.0); Triglycerides 58 mg/dL (<150)
[2024-06-14 12:23] LABS: Folate 13.5 ng/mL (> or = 4.0); Vitamin B12 322 pg/mL (200-900)
[2024-06-14 12:27] LABS: TSH reflex Free T4 2.24 uIU/mL (0.32-4.0); Vitamin D 25-OH Total 39.8 ng/mL (>30)
[2024-06-14 12:31] LABS: Appearance Urine Clear; Color Urine Yellow; Glucose Urine UA Negative (Negative); Leukocyte Esterase Urine Negative (Negative); Nitrite Urine Negative (Negative); Specific Gravity - Urine <= 1.005 (1.005-1.025); Urine Blood Negative (Negative); Urine Ketones Negative (Negative); Urine Protein Negative (Neg-Trace)
[2024-06-20 13:49] LABS: N-Telopeptide 26 (see note); NTXCreaRU 27 mg/dL (20-275)
== END 2024-06-14 10:38 | disposition home or self-care (01) ==
LOC: HO.LAB 10:37
PROVIDERS: PCP Internal Medicine; Visit Provider Internal Medicine
DX: Z00.00 Encounter for general adult medical examination without abnormal findings (principal); M81.0 Age-related osteoporosis without current pathological fracture; D64.9 Anemia, unspecified; R30.0 Dysuria; E78.00 Pure hypercholesterolemia, unspecified; E55.9 Vitamin D deficiency, unspecified; E53.8 Deficiency of other specified B group vitamins
CPT/HCPCS: 36415; 80053; 80061; 81003; 82306; 82523; 82607; 82746; 84443; 85025

== ENCOUNTER 2024-08-17 15:01 | Outpatient (AMB) | payer BC, SELFPAY ==
[2024-08-17 15:04] VITALS: BP 132/88; PULSE 76; O2SAT 97; BMI 21.8
--- NOTE | 2024-08-17 15:04 | A.OFFVIS_ITS ---
Vital Signs 08/17/24 15:04 Height 5 ft 7 in Weight 138 lb 14.259 oz BMI 21.8 BP 132/88 Blood Pressure Location Lt brachial Position Sitting Pulse 76 Pulse Source Pulse Oximeter Pulse Oximetry (%) 97 Oxygen Delivery Method Room Air Intake Visit Reasons: Osteoporosis Intake Note: Patient present today for Osteoporosis office visit. 3D Specialist Required: No Accompanied by: Self / Same As Patient Allergies amoxicillin [AMOXICILLIN] Allergy (Severe, Verified 08/17/24 15:12) HIVES penicillamine [Cuprimine] Allergy (Severe, Verified 08/17/24 15:12) HIVES Penicillins [PENICILLINS] Allergy (Severe, Verified 08/17/24 15:12) HIVES Medication List - Last Reconciled 08/17/24 by Cameron Funk MD calcium carbonate-vitamin D3 600 mg-10 mcg (400 unit) 2 tabs PO DAILY 90 days cyclobenzaprine 5 mg PO TID PRN gabapentin 300 mg (3 x 100 mg) PO BEDTIME magnesium citrate 296 mL PO ONCE rizatriptan 10 mg PO ONCE PRN ropinirole 0.5 mg PO BEDTIME 30 days HPI Comments Details: 63 YO Female is seen in consultation at the request of PCP for Osteoporosis. First diagnosed in 2018.Have not seen endo before Received treatment in the past with alendronate, from 2017 to 2022. Tolerated treatment well without complication. No history of pathologic fracture or ONJ. Hip replacement in 2020 to due to OA Has several servings of dietary calcium per day in the form of brocoli , cereal , yogurt . Takes Calcium supplement 1200 mg daily in divided doses. Takes 800 IU of Vitamin D daily. Denies ever using PPI, anticoagulant, antiepileptic or glucocorticoid medication. Does weight bearing exercise 3-4 days per week in the form of recumbent bike and wt bearing exercise . 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 UTD on dental cleanings and sees dentist every 6 months. No planned upcoming dental work or extractions. No smoking or heavy ETOH use DXA dated : FINDINGS: LEFT FEMUR, NECK: Current: BMD 0.678 g/cm2, Z-score -1.0, T-score -2.6, osteoporosis. Baseline: BMD 0.651 g/cm2. LEFT FEMUR, TOTAL: Current: BMD 0.636 g/cm2, Z-score -1.6, T-score -2.9, osteoporosis, 7.6% decrease from baseline (<5% change is not significant). Baseline: BMD 0.688 g/cm2. AP SPINE L1-L4: Current: BMD 0.878 g/cm2, Z-score -0.8, T-score -2.5, osteoporosis, 0.2% decrease from baseline (<5% change is not significant). Baseline: BMD 0.880 g/cm2. IDENTIFIED RISK FACTORS: Menopause, height loss, osteoporosis. HISTORY OF FRACTURE: None listed. MEDICATIONS: Calcium, vitamin D. MM/XR DEXA axial skeleton IMPRESSION: 1. DIAGNOSIS: Osteoporosis based on the lowest T-score value of -2.9 in the total femur applying World Health Organization criteria. Labs: PENDING SALE TO [facility] Medical History Status post placement of implantable loop recorder (~02/04/18) Insomnia Osteoporosis Brugada syndrome Osteoarthritis Migraine Surgical History History of colonoscopy History of total right hip arthroplasty History of breast surgery Family History Father No problems noted. Mother Alive and well Social History Housing: House Are you a primary acute care registered nurse to a significant other at home: No Do you presently have visiting nurse or other home services: No Alcohol intake: current Alcohol intake frequency: holidays/special occasions only Patient Tobacco Use Status: Former Tobacco user Tobacco use type: Cigarette e-Cigarette/Vaping Use: Never Used Second Hand Smoke Exposure: Yes Advance Directives Date on File: 04/07/20 service: No Current occupational status: employed Cognitive needs: No Hearing needs: No Vision needs: Yes (Glasses) Physical Exam There are no Cushingoid features. Absence of blue sclera. Absence of kyphosis. Thyroid gland is of nl size and weighs 15 gms. There are no thyroid nodules palpated. Lungs CTA. Heart S1 S2 Reg R/R Abdominal exam benign. Muscle strength 5/5 . Examination of spine reveals absence of tenderness on palpation Assessment & Plan Assessment & Plan (1) Osteoporosis: Comment: s/p Tx with Alendronate from 2017 to 2022 Code(s): M81.0 - Age-related osteoporosis without current pathological fracture Category: Medical Qualifiers: Osteoporosis type: age-related Presence of current pathological fracture: without current pathological fracture Qualified Code(s): M81.0 - Age- related osteoporosis without current pathological fracture Plan: this is a 63-year-old white female with a history of osteoporosis with a history of 5 year treatment of alendronate with residual osteoporosis. Partial secondary workup has been done. Urine NTX is suppressed P hima is to complete the secondary workup by getting a phosphorus level, SPEP, urine immunofixation, 24 hour urine for calcium and creatinine. . Would continue treat with current doses of calcium and vitamin-D. Assuming secondary workup is negative, could give a course of anabolic therapy with either Evenity, Tymlos or Forteo or could convert to Prolia but would favor anabolic therapy initially considering the suppressed urine NTX and then followed by an anti resorptive Orders: Orders Phosphorus Today M81.0 - Age-related osteoporosis without current pathological fracture Protein Electrophoresis, Serum Today M81.0 - Age-related osteoporosis without current pathological fracture Calcium, 24 Hr Ur Today M81.0 - Age-related osteoporosis without current path ological fracture Creatinine, 24 Hr Group Today M81.0 - Age-related osteoporosis without current pathological fracture Immunofixation, Random Urine Today M81.0 - Age-related osteoporosis without current pathological fracture Coding Level of Care Code New Pt Level 4 (86614) Diagnoses Age-related osteoporosis without current pathological fracture M81.0 Osteoporosis type: age-related Presence of current pathological fracture: without current pathological fracture
== END 2024-08-17 16:32 | disposition home or self-care (01) ==
PROVIDERS: PCP Internal Medicine; Visit Provider Internal Medicine Endocrinology, Diabetes & Metabolism
DX: M81.0 Age-related osteoporosis without current pathological fracture (principal)
CPT/HCPCS: 99204

== ENCOUNTER 2024-12-13 16:33 | Outpatient (AMB) | payer BC, SELFPAY ==
[2024-12-13 16:34] VITALS: BP 122/86; PULSE 68; O2SAT 95; BMI 21.1
--- NOTE | 2024-12-13 16:34 | A.OFFPC_ITS ---
Vital Signs 12/13/24 16:34 Height 5 ft 7 in Weight 135 lb BMI 21.1 BP 122/86 Blood Pressure Location Lt brachial Position Sitting Pulse 68 Pulse Source Pulse Oximeter Pulse Oximetry (%) 95 Oxygen Delivery Method Room Air Intake Visit Reasons: 6 month f/u Director Search Required: No Accompanied by: Self / Same As Patient Allergies amoxicillin (AMOXICILLIN) Allergy (Severe, Verified 12/13/24 16:45) HIVES penicillamine (Cuprimine) Allergy (Severe, Verified 12/13/24 16:45) HIVES Penicillins (PENICILLINS) Allergy (Severe, Verified 12/13/24 16:45) HIVES Medication List - Last Reconciled 12/13/24 by EMILY Naranjo calcium carbonate-vitamin D3 600 mg-10 mcg (400 unit) 2 tabs PO DAILY 90 days cyclobenzaprine 5 mg PO TID PRN gabapentin 300 mg (3 x 100 mg) PO BEDTIME magnesium citrate 296 mL PO ONCE rizatriptan 10 mg PO ONCE PRN ropinirole 1 mg PO BEDTIME 30 days Tobacco use date assessed: 12/13/24 Fall risk assessment: No Falls in past year Last assessed Fall Risk: 12/13/24 Dental Screening Dental Screen Date: 12/13/24 Did you have a dental visit in the last 12 months?: Yes Did you have a dental problem in the last 6 months where you did not have access to dental care?: No Was dental information given to patient?: Patient has dentist HPI 6 month f/u HPI Details The patient is a 64-year-old female presenting with swelling in the left ankle and concerns regarding osteoarthritis and osteoporosis management. The patient reports a history of osteoarthritis, which has been managed with a hip replacement performed four years ago in [place]. She notes that the other hip is beginning to cause discomfort, particularly after prolonged standing, such as during a recent graduation democrat where she stood for three hours. The patient noticed swelling in her left ankle just before leaving her office, which she describes as non-pitting and not associated with pain. She maintains an active lifestyle, walking approximately two and a half miles daily, and has a history of osteoporosis, for which she is considering further evaluation and management options. The patient also experiences restless leg syndrome, for which she is currently taking ropinirole and gabapentin, although she feels the symptoms are worsening. Additionally, she suffers from migraine headaches, managed with Excedrin Migraine and rizatriptan, and has explored alternative therapies such as acupuncture and pressure point massages. [facility] Medical History Status post placement of implantable loop recorder (~02/04/18) Insomnia Osteoporosis Brugada syndrome Osteoarthritis Migraine Surgical History History of colonoscopy History of total right hip arthroplasty History of breast surgery Family History Father No problems noted. Mother Alive and well Social History Housing: House Are you a primary child daycare worker to a significant other at home: No Do you presently have visiting nurse or other home services: No Alcohol intake: current Alcohol intake frequency: holidays/special occasions only Patient Tobacco Use Status: Former Tobacco user Tobacco use type: Cigarette e-Cigarette/Vaping Use: Never Used Second Hand Smoke Exposure: Yes Advance Directives Date on File: 04/07/20 service: No Current occupational status: employed Cognitive needs: No Hearing needs: No Vision needs: Yes (Glasses) Questionnaire PHQ-9 Over the last 2 weeks, how often have you been bothered by any of the following problems? 1. Little interest or pleasure in doing things: not at all 2. Feeling down, depressed, or hopeless: not at all 3. Trouble falling or staying asleep, or sleeping too much: not at all 4. Feeling tired or having little energy: not at all 5. Poor appetite or overeating: not at all 6. Feeling bad about yourself - or that you are a failure or have let yourself or your family down: not at all 7. Trouble concentrating on things, such as reading the newspaper or watching television: not at all 8. Moving or speaking so slowly that other people could have noticed. Or the opposite - being so fidgety or restless that you have been moving around a lot more than usual: not at all 9. Thoughts that you would be better off or of hurting yourself in some way: not at all Total score: 0 Depression Screening Interpretation: Negative Depression Screening Done: Yes 08533 - PHQ-9 Billing: Yes Source: Developed by Drs. Cameron Randolph, Pamela Becerra, Cornelio Ruggiero and colleagues, with an educational barry from [employer]. Thrive Questionnaire Date Thrive assessed: 12/13/24 I am a: Patient What is your living situation today?: I have a steady place to live Within the past 12 months, did the food you bought not last and you didn't have the money to get more?: Never true Within the past 12 months, did you worry whether your food would run out before you got money to buy more?: Never true Do you have trouble paying for medicines?: No Do you have trouble getting transportation to medical appointments?: No Do you have trouble paying your heating and electricity bill?: No Do you have trouble taking care of your child, family member or friend?: No Do you have trouble with day-to-day activities such as bathing, preparing meals, shopping, managing finances, etc.?: No Are you currently unemployed and looking for a job?: No Are you interested in more education?: Yes Please select the resources that you would like help with: None Currently or been in a relationship where the following occur: No concerns reported THRIVE Score: 0 AUDIT C Alcohol Use Questionnaire (AUDIT-C) 1. How often do you have a drink containing alcohol?: 2-4 times a month 2. How many drinks containing alcohol do you have on a typical day when you are drinking?: 1 or 2 3. How often do you have six or more drinks on one occasion?: Never Total Score: 2 LUKE-7 AMB Questionnaire LUKE-7 Date LUKE - 7 assessed: 12/13/24 Feeling nervous, anxious, or on edge: 0 = Not at all Not being able to stop or control worryin = Not at all Worrying too much about different things: 0 = Not at all Trouble relaxin = Not at all Being so restless that it is hard to sit still: 0 = Not at all Becoming easily annoyed or irritable: 0 = Not at all Feeling afraid as if something awful might happen: 0 = Not at all Total LUKE-7 score (0-4 normal; 5-9 mild; 10-14 moderate; 15-21 severe): 0 Source: Developed by Drs. Cameron Randolph, Paemla Becerra, Cornelio Ruggiero and colleagues, with an educational barry from [employer]. LUKE-7 Assessment Billing LUKE-7 Assessment Tool: LUKE-7 Assessment 95515 Review of Systems Const Denies headache(s) Eyes Denies loss of vision ENT Denies vertigo, Denies dizziness, Denies headache(s) and Denies sore throat Card Denies chest pain, Denies leg edema and Denies lightheadedness Resp Denies cough, Denies hemoptysis and Denies wheezing GI Denies abdominal pain, Denies melena, Denies constipation, Denies diarrhea and Denies vomiting Denies urinary frequency, Denies dysuria and Denies urinary urgency Musc Reports arthralgias (left ankle edema), Denies joint swelling, Denies numbness and Denies tingling Neuro Denies Abnormal speech present, Denies behavioral changes, Denies vertigo, Denies dizziness, Denies headache(s), Denies loss of vision, Denies memory loss, Denies numbness and Denies tingling Psych Denies anxiety, Denies behavioral changes, Denies depression, Denies memory loss and Denies panic attacks Edis/Lymph Denies easy bleeding and Denies easy bruising Aller/Immun Denies wheezing Physical exam (Primary Care) Vital Signs: Last Vital Signs Pulse 68 12/13/24 16:34 BP 122/86 12/13/24 16:34 Pulse Ox 95 12/13/24 16:34 Oxygen Delivery Method Room Air 12/13/24 16:34 BMI result Body Mass Index 21.1 Tobacco/Smoking Status: Tobacco use Status Tobacco use date assessed 12/13/24 12/13/24 16:39 Patient Tobacco Use Status Former Tobacco user 12/13/24 16:39 Tobacco use type Cigarette 12/13/24 16:39 e-Cigarette/Vaping Use Never Used 12/13/24 16:39 PHQ-9: PHQ-9 Score PHQ-9: Total score 0 12/13/24 16:54 Depression Screening Interpretation: Negative Thrive Assessment: Date of Thrive Assessment Date Thrive assessed 12/13/24 12/13/24 16:39 Currently or been in a relationship where the following occur: No concerns reported Const General: healthy appearing, no acute distress, alert and awake Nutritional Appearance: well nourished Orientation/consciousness: oriented to person, oriented to place and oriented to time HENMT Ears: TM's normal bilaterally General nose exam: Normal nasal mucous membranes and turbinates present Eyes Conjunctivae: conjunctivae normal Sclerae: sclerae normal Pupils: Equal, round and reactive pupils present Neck Neck: Yes no lymphadenopathy and Yes no JVD Thyroid: Thyroid normal Carotids: no bruits Resp Effort & Inspection: normal respiratory effort and not tachypneic Auscultation: no crackles, no rales, no rhonchi and no wheezes Cardio Rate: regular rate Rhythm: regular rhythm Heart sounds: no murmurs and normal S1 and S2 GI Palpation (GI): Soft to palpation, nontender, no hepatomegaly and no splenomegaly Auscultation: normal bowel sounds Skin General skin exam: no rashes or lesions noted and dry skin Neuro General: oriented to person, oriented to place and oriented to time Cranial nerves: Yes Equal, round and reactive pupils present Speech: No Abnormal speech present Gait exam (Neuro): Normal gait present Motor exam (neuro): no tremor noted Extrem Right upper extremity: full ROM Left upper extremity: full ROM Right lower extremity: full ROM; no edema Left lower extremity: full ROM and ankle Details: pitting edema Details: non- pitting and 1+ Psych Mental Status: mental status grossly normal Speech and movement: Normal speech and movement present Affect: normal affect Attitude: cooperative Thought process: Normal thought process present Results Reviewed Results Reviewed: Laboratory Tests 06/14/24 06/14/24 11:06 11:07 WBC 7.1 RBC 4.68 Hgb 14.0 Hct 42.0 MCV 89.7 MCH 29.9 MCHC 33.3 RDW 12.1 Plt Count 315 MPV 8.6 L Immature Gran % (Auto) 0.1 Sodium 140 Potassium 4.6 Chloride 105 Carbon Dioxide 30 H Anion Gap 10 L BUN 14 Creatinine 0.87 Estimated GFR > 60 Fasting Glucose 96 Calcium 9.7 Total Bilirubin 0.3 AST 32 H ALT 37 H Alkaline Phosphatase 75 Total Protein 7.5 Albumin 4.4 Triglycerides 58 Cholesterol 189 Urine Color Yellow Urine Appearance Clear Urine pH 7.0 Ur Specific [place] <= 1.005 Urine Protein Negative Urine Glucose (UA) Negative Urine Ketones Negative Urine Blood Negative Urine Nitrite Negative Ur Leukocyte Esterase Negative Urine Creatinine 27 Coding Level of Care Code Est Pt Level 4 (11275) Diagnoses Spondylolisthesis, cervical region M43.12 Age-related osteoporosis without current pathological fracture M81.0 Osteoporosis type: age-related Presence of current pathological fracture: without current pathological fracture Migraine without aura and without status migrainosus, not intractable G43.009 Migraine type: without aura Status migrainosus presence: without status migrainosus Intractability: not intractable Brugada syndrome I49.8 Primary osteoarthritis, unspecified site M19.91 Osteoarthritis location: unspecified site Osteoarthritis type: primary Insomnia, unspecified type G47.00 Insomnia type: unspecified Anxiety F41.9 Edema of left ankle M25.472 Elevated liver enzymes R74.8 Additional Codes PHQ-9 - 28546 - PHQ-9 Billing: Yes ([id number]) LUKE-7 Assessment Billing - LUKE-7 Assessment Tool: LUKE-7 Assessment 69861 ([id number]) Time Spent (min) 39 Assessment & Plan Assessment & Plan (1) Spondylolisthesis, cervical region: Code(s): M43.12 - Spondylolisthesis, cervical region Category: Medical Plan: Cervical spine x-rays done back in March 2020 revealed (+) degenerative disc changes at C3-C4, C5-C6, and C6-C7, with variable facet degeneration and mild retrolisthesis at C3-C4 and mild anterior spondylol isthesis at C4-C5 She was previously referred to physical therapy, which she states have helped somewhat and her neck pain has been mostly manageable lately (2) Osteoporosis: Comment: s/p Tx with Alendronate from 2017 to 2022 Code(s): M81.0 - Age-related osteoporosis without current pathological fracture Category: Medical Qualifiers: Osteoporosis type: age-related Presence of current pathological fracture: without current pathological fracture Qualified Code(s): M81.0 - Age- related osteoporosis without current pathological fracture Plan: Her initial BMD done in 06/2017 revealed (+) osteoporosis with lowest T-score value of -2.8 in the femoral neck Patient has been on Alendronate 70 mg once a week since 2017 and just recently completed 5 years of oral bisphosphonate Tx this past year (2022) Fall and injury precautions reinforced She is reminded to continue to stay active and exercise regularly and continue taking her daily oral Calcium and Vitamin D supplements She was finally able to get her repeat BMD done in November 2023 - repeat BMD reveal ed (+) osteoporosis based on the lowest T-score value of -2.9 in the total femur Her BMD in the left femur revealed a 7.6% decrease from baseline and a 0.2% decreased from baseline in the AP spine Will send her for some additional labs (Ntx Crosslinks) for further evaluation and depending on how this comes out, will consider starting her on other medications for her osteoporosis like Prolia or Evenity (3) Migraine: Code(s): G43.909 - Migraine, unspecified, not intractable, without status migrainosus Category: Medical Qualifiers: Migraine type: without aura Status migrainosus presence: without status migrainosus Intractability: not intractable Qualified Code(s): G43.009 - Migraine without aura, not intractable, without status migrainosus Plan: Her migraine headaches appear controlled lately Reinforced avoidance of migraine triggers Continue Rizatriptan 10 mg PRN She was also started on Verapamil 40 mg Q HS for BOYD prophylaxis by neurology last year but it appears that she is no longer taking this and has not been taking it in a while now Follow up with neurology (Dr. Quiros) as scheduled or as needed (4) Brugada syndrome: Code(s): I49.8 - Other specified cardiac arrhythmias Category: Medical Plan: This was initially suspected on EKG sometime in 2018 - EKG revealed ST elevation and downsloping pattern in V2 Subsequent Holter monitoring and echocardiogram were unremarkable. Stress test revealed good exercise tolerance and a pattern of ST elevation in lead V2. 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 Brugada As she has never had any episodes of syncope or near-syncope, was determined to not be a candidate for ICD placement Patient underwent placement of an [employer] implantable loop recorder on 02/04/2018 and was monitored/evaluated for NSVT or VT episodes and any other concerning symptoms - it appears that this came out okay She has met with a genetic counselor in [place] and they have discussed plan to have her family members, especially her daughter, meet with them sometime in the future for testing States that she currently feels well and continues to exercise regularly with no restrictions in terms of activity or exertion and has not had any concerning symptoms (including chest pains or SOB) so far Follow up with cardiology at [facility] as scheduled yearly (5) Osteoarthritis: Code(s): M19.90 - Unspecified osteoarthritis, unspecified site Category: Medical Qualifiers: Osteoarthritis location: unspecified site Osteoarthritis type: primary Qualified Code(s): M19.91 - Primary osteoarthritis, unspecified site Plan: Involving multiple joints Patient underwent total right hip arthroplasty on 08/21/2020, with significant improvement of her right hip pain and mobility Her LEFT hip has been bothering her on and off although she continues to stay active and exercise and work out regularly. The patient feels like she has been placing all her pressure on the left hip/leg since she had surgery on the right hip and now her left hip feels sore on and off and her left ankle has been swollen. The patient was taking Celecoxib 200 mg BID PRN for pain now is no longer taken this. The patient is currently taking gabapentin 300mg at bedtime and cyclobenz aprine 5 mg TID prn Follow up with orthopedics as scheduled (6) Insomnia: Code(s): G47.00 - Insomnia, unspecified Category: Medical Qualifiers: Insomnia type: unspecified Qualified Code(s): G47.00 - Insomnia, unspecified Plan: Sleep hygiene reinforced The patient used to take melatonin 10 mg at HS p.r.n.. She is currently gabapentin 300 mg at bedtime for pain but helps with her sleep as well. (7) Anxiety: Code(s): F41.9 - Anxiety disorder, unspecified Category: Medical Plan: She could not tolerate Hydroxyzine when it was prescribed for her last year She wanted to try something for her anxiety but does not want anything that can make her feel drowsy or tired She has been advised that most of the PRN meds for anxiety are benzodiazepines, which can cause drowsiness and are also potentially habit-forming She was previously started on low dose Sertraline 25 mg QD but she stopped taking it after a few days and did not wish to continue Encouraged CBT. Denies SI/HI (8) Edema of left ankle: Code(s): M25.472 - Effusion, left ankle Category: Medical Plan: The patient has positive pedal pulse. No shortness a breath, clear lung sounds. This appears to be a circulation issue has a patient favors the left leg due to her right hip replacement. She has no pain or discoloration in the leg. Encouraged elevation and compression stockings. We will continue to monitor, patient to contact the office if the swelling worsens. (9) Elevated liver enzymes: Code(s): R74.8 - Abnormal levels of other serum enzymes Category: Medical Plan: The patient has slightly elevated liver enzymes with AST 32 and ALT 37 and the patient denies abdominal pain. Encouraged limit alcohol or Tylenol use. We will recheck lipids in six-month Plan Follow up in 6 months Orders: Orders Complete Blood Count Auto Diff 6 Months F41.9 - Anxiety disorder, unspecified, I49.8 - Other specified cardiac arrhythmias, M81.0 - Age-related osteoporosis without current pathological fracture, H93.19 - Tinnitus, unspecified ear, R42 - Dizziness and giddiness, M19.91 - Primary osteoarthritis, unspecified site, G47.00 - Insomnia, unspecified, Z00.00 - Encounter for general adult medical examination without abnormal findings Lipid Panel 6 Months F41.9 - Anxiety disorder, unspecified, I49.8 - Other specified cardiac arrhythmias, M81.0 - Age-related osteoporosis without current pathological fracture, H93.19 - Tinnitus, unspecified ear, R42 - Dizziness and giddiness, M19.91 - Primary osteoarthritis, unspecified site, G47.00 - Insomnia, unspecified, Z00.00 - Encounter for general adult medical examination without abnormal findings TSH reflex Free T4 6 Months F41.9 - Anxiety disorder, unspecified, I49.8 - Other specified cardiac arrhythmias, M81.0 - Age-related osteoporosis without current pathological fracture, H93.19 - Tinnitus, unspecified ear, R42 - Dizziness and giddiness, M19.91 - Primary osteoarthritis, unspecified site, G47.00 - Insomnia, unspecified, Z00.00 - Encounter for general adult medical examination without abnormal findings UA CC w/rflx Micro + Cult 6 Months F41.9 - Anxiety disorder, unspecified, I49.8 - Other specified cardiac arrhythmias, M81.0 - Age-related osteoporosis without current pathological fracture, H93.19 - Tinnitus, unspecified ear, R42 - Dizziness and giddiness, M19.91 - Primary osteoarthritis, unspecified site, G47.00 - Insomnia, unspecified, Z00.00 - Encounter for general adult medical examination without abnormal findings Vitamin D 25-OH Total 6 Months F41.9 - Anxiety disorder, unspecified, I49.8 - Other specified cardiac arrhythmias, M81.0 - Age-related osteoporosis without current pathological fracture, H93.19 - Tinnitus, unspecified ear, R42 - Dizziness and giddiness, M19.91 - Primary osteoarthritis, unspecified site, G47.00 - Insomnia, unspecified, Z00.00 - Encounter for general adult medical examination without abnormal findings Comprehensive [place]. Panel Fast 6 Months F41.9 - Anxiety disorder, unspecified, I49.8 - Other specified cardiac arrhythmias, M81.0 - Age-related osteoporosis without current pathological fracture, H93.19 - Tinnitus, unspecified ear, R42 - Dizziness and giddiness, M19.91 - Primary osteoarthritis, unspecified site, G47.00 - Insomnia, unspecified, Z00.00 - Encounter for general adult medical examination without abnormal findings
--- OUTSIDE RECORDS SUMMARY | 2024-12-13 17:43 | XMS_ITS | Encounter Summary ---
Author Organization [facility] Address [address] [place] [address] Care Team Providers Care Metal Melter Name Role Phone Darin Maldonado MD Primary Care Provider Encounter Details Date Type Department Care Team (Latest Contact Info) Description 11/16/2024 Lab Requisition [facility] - Main Lab [address] [place] [address] Krista Astorga MD [address] [phone] Encounter for gynecological examination (general) (routine) without abnormal findings Social History Tobacco Use Types Packs/Day Years Used Date Smoking Tobacco: Former Smokeless Tobacco: Never Alcohol Use Standard Drinks/Week Comments Yes 0 (1 standard drink = 0.6 oz pur e alcohol) Comments No Sex and Gender Information Value Date Recorded Sex Assigned at Not on file Legal Sex Female 4:11 PM EST Gender Identity Not on file Sexual Orientation Not on file documented as of this encounter Plan of Treatment Not on file documented as of this encounter Procedures Procedure Name Priority Date/Time Associated Diagnosis Comments PAP SMEAR Routine 11/12/2024 12:00 PM EDT Encounter for gynecological examination (general) (routine) without abnormal findings documented in this encounter Results * Pap smear (11/12/2024 12:00 PM EDT) Interpretation Negative for intraepithelial lesion or malignancy 11/16/2024 4:27 PM EDT [facility] General Categorization Negative 11/16/2024 4:27 PM EDT [facility] Other Findings Atrophy 11/16/2024 4:27 PM [facility] Specimen Adequacy Satisfactory for evaluation 11/16/2024 4:27 PM [facility] Pap Methodology Liquid Based Pap Test 11/16/2024 4:27 PM T [facility] Disclaimer The Pap test is a screening test which carries an inherent false negative rate. These test results should be correlated with the patient's clinical findings and history. This Pap test was processed using an automated screening system. Technical cytopathology services provided by [facility], at [address] [place] [id number] (CLIA # [id number]/Aldo Gasca MD, Tube Coverer.) 11/16/2024 4:27 PM [facility] Console Pap Interpretation Reported 11/16/2024 4:27 PM [facility] Brushing/Spatula Cervix uteri structure / Unknown 11/12/2024 12:00 PM EDT 11/16/2024 7:11 AM EDT us Krista Astorga MD LAB CYTOLOGY ORDERABLES Final Result [facility] [address] [place] [address], documented in this encounter Visit Diagnoses Diagnosis Encounter for gynecological examination (general) (routine) without abnormal findings documented in this encounter Care Teams Metal Melter Relationship Specialty Start Date End Date Darin Maldonado MD [address] [place] [address] Dr [address] PCP - General Internal Medicine 09/21/18 documented as of this encounter
== END 2024-12-13 17:35 | disposition home or self-care (01) ==
LOC: HO.HMCH 16:33
PROVIDERS: PCP Internal Medicine
DX: M43.12 Spondylolisthesis, cervical region (principal); M81.0 Age-related osteoporosis without current pathological fracture; G43.009 Migraine without aura, not intractable, without status migrainosus; I49.8 Other specified cardiac arrhythmias; M19.91 Primary osteoarthritis, unspecified site; G47.00 Insomnia, unspecified; F41.9 Anxiety disorder, unspecified; M25.472 Effusion, left ankle; R74.8 Abnormal levels of other serum enzymes

== ENCOUNTER → 2024-12-13 16:33 | Outpatient (BNVA) | payer BC, SELFPAY | PROVIDERS: PCP Internal Medicine | DX: M81.0 Age-related osteoporosis without current pathological fracture (principal); M43.12 Spondylolisthesis, cervical region; G43.009 Migraine without aura, not intractable, without status migrainosus; I49.8 Other specified cardiac arrhythmias; G47.00 Insomnia, unspecified; F41.9 Anxiety disorder, unspecified; M25.472 Effusion, left ankle; R74.8 Abnormal levels of other serum enzymes; M25.552 Pain in left hip; Z96.641 Presence of right artificial hip joint | CPT/HCPCS: 96127 ==

== ENCOUNTER 2025-01-08 10:56 | Outpatient (REF) | payer BC, SELFPAY ==
--- OUTSIDE RECORDS SUMMARY | 2025-01-07 10:00 | XMS_ITS | Encounter Summary ---
Author Organization [facility] Address [address] [place] [address] Phone Care Team Providers Care Drug Department Worker Name Role Phone Darin Maldonado MD Primary Care Provider Un available Encounter Details Date Type Department Care Team (Late st Contact Info) Description 01/07/2025 10:00 AM EDT - 01/07/2025 11:59 PM EDT Hospital Encounter [facility], X-Ray [address] [address] Dipak Gannon PA-C [address] [place] [address] [place] [address] [email or web address] Discharge Disposition: Home or Self Care Social History Tobacco Use Types Packs/Day Years Used Date Smoking Tobacco: Never Smokeless Tobacco: Never Alcohol Use Standard Drinks/Week Comments Yes 1 (1 standard drink = 0.6 oz pur e alcohol) Education Answer Date Recorded Are you interested in more education? Not on paola e 10/18/2022 Are you concerned about learning? Not on file 10/18/2022 No 10/18/2022 No 10/18/2022 Digital Access Answer Date Recorded No 11/16/2022 No 11/16/2022 Reliable internet access at home? Not on file 11/16/2022 Device with a working camera? Not on file Comments No Sex and Gender Information Value Date Recorded Sex Assigned at Not on file Legal Sex Female 3:30 PM EDT Gender Identity Not on file Sexual Orientation Not on file documented as of this encounter Medications at Time of Discharge acetaminophen (TYLENOL) 500 MG tablet Take 2 tablets (1,000 mg total) by mouth every 8 (eight) hours. 60 tablet 08/22/2020 alendronate (FOSAMAX) 70 MG tablet Take 70 mg by mouth every 7 days. Take in the morning with a full glass of water, on an empty stomach, and do not take anything else by mouth or lie down for the next 30 min. benzonatate (TESSALON) 100 MG capsule Take 2 capsules (200 mg total) by mouth 3 (three) times a day as needed for cough. 21 capsule 10/25/2024 calcium carbonate-vitamin D3 1,250 mg (500 mg elemental)-400 units Tab Take 1 tablet by mouth daily. calcium carbonate-vitamin D3 1500 mg (600 mg elemental)-400 units per tablet Take 2 tablets by mouth every morning. 12/27/2022 celecoxib (CELEBREX) 200 MG capsule 200 mg 2 (two) times a day. 06/22/2020 cyclobenzaprine (FLEXERIL) 5 MG tablet take 1 tablet by mouth three times a day as needed for muscle spasm 09/17/2024 GABAPENTIN ORAL Take 300 mg by mouth nightly at bedtime. magnesium 250 mg Tab Take by mouth daily. melatonin 5 mg Tab Take 10 mg by mouth nightly at bedtime. MULTIVITAMIN ORAL Take by mouth. rizatriptan (MAXALT) 10 MG tablet Take 10 mg by mouth as needed for migraine. May repeat in 2 hours if needed rOPINIRole (REQUIP) 0.5 MG tablet take 1 tablet by mouth at bedtime for 30 days 09/25/2024 senna (SENOKOT) 8.6 mg tablet Take 1 tablet by mouth 2 (two) times a day. 30 tablet 08/22/2020 SUMAtriptan (IMITREX) 100 MG tablet Take 100 mg by mouth every 2 (two) hours as needed for migraine. topiramate (TOPAMAX) 25 MG capsule Take 25 mg by mouth daily. documented as of this encounter Plan of Treatment Upcoming Encounters Date Type Department Care Team (Late st Contact Info) Description 01/19/2025 3:15 PM EDT Initial consult [facility] Medical Endocrine [address] [place] [address] Lorna Schreiber MD [address] [place] [address] [email or web address] 01/31/2025 1:00 PM EDT Office Visit [facility] Cardiac Arrhythmia Service [address] [facility], 5th Floor, [address] [place] [address] Neetu Albarran, SALES PROJECT ENGINEER [address] [place] [address] [email or web address] Pending Results Name Type Priority Associated Diagnoses Date /Time XR Hips with Pelvis (Bilateral) Imaging Routine Pain of left hip 01/07/2025 10:59 AM EDT Scheduled Orders Name Type Priority Associated Diagnoses Orde r Schedule XR Hips with Pelvis (Bilateral) Imaging Routine Pain of left hip As Needed for 1 Occurrences starting 01/07/2025 until 01/07/2025 documented as of this encounter Visit Diagnoses Diagnosis Pain of left hip documented in this encounter Care Teams Drug Department Worker Relationship Specialty Start Date End Date Darin Maldonado MD PCP - General Internal Medicine 11/07/17 documented as of this encounter Additional Source Comments The information contained in this document represents components of the legal health record. It is not the complete legal health record.[facility]
--- OUTSIDE RECORDS SUMMARY | 2025-01-08 10:58 | XMS_ITS | Encounter Summary ---
Author Organization [facility] Address [address] [place] [address] Care Team Providers Care Mothers Helper Name Role Phone Darin Maldonado MD Primary Care Provider Encounter Details Date Type Department Care Team (Latest Contact Info) Description 11/16/[address] [facility] Lab [address] [place] [address] Krista Astorga MD [address] [phone] Encounter for gynecological examination (general) (routine) without [...] lesion or malignancy 11/16/2024 4:27 PM EDT [facility] General Categorization Negative 11/16/2024 4:27 PM EDT [facility] Other Findings Atrophy 11/16/2024 4:27 PM [facility] Specimen Adequacy Satisfactory for evaluation 11/16/2024 4:27 PM [facility] Pap Methodology Liquid Based Pap Test 11/16/2024 4:27 PM T [facility] Disclaimer The Pap test is a screening test which carries an inherent false negative rate. These test results should be correlated with the patient's clinical findings and history. This Pap test was processed using an automated screening system. Technical cytopathology services provided by [facility], at [address] [place] [id number] (CLIA # [id number]/Aldo Gasca MD, Residential Sales.) 11/16/2024 4:27 PM [facility] Console Pap Interpretation Reported 11/16/2024 4:27 PM [facility] Brushing/Spatula Cervix uteri structure / Unknown 11/12/2024 12:00 PM EDT 11/16/2024 7:11 AM EDT us Krista Astorga MD LAB CYTOLOGY ORDERABLES Final Result [facility] [address] [place] [address], documented in this encounter Visit Diagnoses Diagnosis Encounter for gynecological examination (general) (routine) without abnormal findings documented in this encounter Care Teams Mothers Helper Relationship Specialty Start Date End Date Darin Maldonado MD [address] [place] [address] Dr Serrano [address] PCP - General Internal Medicine 09/21/18 documented as of this encounter
[2025-01-11 22:03] LABS: Prot Elec - Albumin 4.4 g/dL (3.8-4.8); Prot Elec - Alpha1 0.3 g/dL (0.2-0.3); Prot Elec - Alpha2 0.8 g/dL (0.5-0.9); Prot Elec - Beta 1 0.5 g/dL (0.4-0.6); Prot Elec - Beta 2 0.3 g/dL (0.2-0.5); Prot Elec - Gamma 0.8 g/dL (0.8-1.7); Prot Elec - Total Protein 7.1 g/dL (6.1-8.1)
== END 2025-01-08 10:57 | disposition home or self-care (01) ==
LOC: HO.LAB 10:56
PROVIDERS: PCP Internal Medicine; Visit Provider Internal Medicine Endocrinology, Diabetes & Metabolism
DX: M81.0 Age-related osteoporosis without current pathological fracture (principal)
CPT/HCPCS: 84100; 84165; 86335

== ENCOUNTER 2025-01-10 09:02 | Outpatient (REF) | payer BC, SELFPAY ==
[2025-01-10 10:22] LABS: Total Volume 24 Hour Urine 3075 mL
[2025-01-10 10:47] LABS: Creatinine, mg/dL 35.24
[2025-01-12 21:28] LABS: Calcium/Creatinine Ratio 361 mg/g creat (30-275); Creatinine 24Hr Urine 1.17 g/24 h (0.50-2.15)
== END 2025-01-10 09:03 | disposition home or self-care (01) ==
LOC: HO.LNP 09:02
PROVIDERS: Visit Provider Internal Medicine Endocrinology, Diabetes & Metabolism
DX: M81.0 Age-related osteoporosis without current pathological fracture (principal)
CPT/HCPCS: 82340; 82570

== ENCOUNTER 2025-03-22 13:01 | Outpatient (AMB) | payer BC, SELFPAY ==
--- NOTE | 2025-03-22 13:23 | MHC.AMNUTRGE ---
VS Expanded 03/22/25 13:34 04/05/25 21:16 Height 5 ft 7 in 5 ft 7 in Weight 135 lb 135 lb BMI 21.1 21.1 Intake Visit Reasons: Obesity Allergies amoxicillin (AMOXICILLIN) Allergy (Severe, Verified 12/13/24 16:45) HIVES penicillamine (Cuprimine) Allergy (Severe, Verified 12/13/24 16:45) HIVES Penicillins (PENICILLINS) Allergy (Severe, Verified 12/13/24 16:45) HIVES Nutrition Presentation Details: Pt presents for MNT related to osteoporosis Pt reports having a variety of foods, working towards including calcium containing foods and strength training. Pt has questions regarding food/nutrient composition . Pt reports keeping physically active, walking/strength training 3-4 times/wk BS Monitoring Most Recent Diabetes Results: Cholesterol, (<200) 189 mg/dL 06/14/24 HDL Cholesterol, (>40) 77 mg/dL 06/14/24 Triglycerides, (<150) 58 mg/dL 06/14/24 Creatinine, (0.5-1.4) 0.87 mg/dL 06/14/24 BUN, (9-16) 14 mg/dL 24 Sodium, (135-145) 140 mmol/L 24 Potassium, (3.3-5.1) 4.6 mmol/L 24 Chloride, (96-108) 105 mmol/L 24 Carbon Dioxide, (22-29) 30 mmol/L H 24 Calcium, (8.4-10.2) 9.7 mg/dL 06/14/24 AST, (5-31) 32 U/L H 06/14/24 ALT, (0-31) 37 U/L H 24 Total Protein, (6.5-8.0) 7.5 g/dL 06/14/24 Albumin, (3.5-5.0) 4.4 g/dL 06/14/24 CIM-Qapweyx-Xm.Jeor Equation Height: 5 ft 7 in Weight: 135 lb Resting Metabolic Rate: 1189.64 Calculated Activity Level: Moderate Activity Calories Needed to Maintain Weight: 1843.94 Diagnosis Nutrition problem #1: increased nutrient needs As related to (etiology) #1: diagnosis [facility] Medical History Status post placement of implantable loop recorder (~02/04/18) Insomnia Osteoporosis Brugada syndrome Osteoarthritis Migraine Surgical History History of colonoscopy History of total right hip arthroplasty History of breast surgery Family History Father No problems noted. Mother Alive and well Social History Housing: House Are you a primary manager intensive care unit to a significant other at home: No Do you presently have visiting nurse or other home services: No Alcohol intake: current Alcohol intake frequency: holidays/special occasions only Patient Tobacco Use Status: Former Tobacco user Tobacco use type: Cigarette e-Cigarette/Vaping Use: Never Used Second Hand Smoke Exposure: Yes Advance Directives Date on File: 04/07/20 service: No Current occupational status: employed Cognitive needs: No Hearing needs: No Vision needs: Yes (Glasses) Assessment & Plan Assessment & Plan (1) Osteoporosis: Code(s): M81.0 - Age-related osteoporosis without current pathological fracture Category: Medical Qualifiers: Osteoporosis type: age-related Presence of current pathological fracture: without current pathological fracture Qualified Code(s): M81.0 - Age-related osteoporosis without current pathological fracture Plan: current wt: 61 kg ( 04/16 ) est kcal needs as per MSJ: 1800+1000 est protein needs as per 1 g/kg BW: 60-70 est fluid needs as per 30 ml/kg BW: 1800 Recommended fiber > 12 g /day and gradually increase up to 25-28 g /day or as tolerated Nutrition topics discussed : Reviewed (R), Pt verbalized understanding (V) , not applicable (N/A) R, V, : Healthy Plate Method Concept: R, V, N/A: Carbohydrates: food sources of carbohydrates, relationship of carbohydrates to blood glucose, fatty liver GI health. Recommended total amount of carbohydrates per meals and snack. Differences between simple carbohydrates and complex carbohydrates R, V, : Lean protein foods including vegan , vegetarian sources of protein. Benefits of protein (including but not limited to healing, nutritional value , benefits in weight loss, glucose control R, V, N/A: Fats : Source of fats, benefits of fats. Difference between saturated and unsaturated fats. Saturated fats and its contribution to inflammation R, V, N/A: Fiber: food sources and role of fiber in the diet (including but not limited to its role as a prebiotic, benefits in constipation, role in IBS , role in glucose control and cholesterol level) R, V, : Hydration: role of hydration and prevention of dehydration or over hydration. Foods and water content. R, V, : Vitamins and Minerals in foods and supplements R, V, : Interpreting food labels, including serving size, macronutrients, vitamins, minerals, allergens, ingredient list , % daily value Patient Instructions: Include 1300 mg calcium per day or more along with foods fortified/enriched with vitamin D (yogurts, cheese, tofu, milk and alternatives fortified, seeds, nuts , sardines with bones) Continue working on choosing a variety of foods Coding Level of Care Code Nutr Indiv Intake (44203) Diagnoses Age-related osteoporosis without current pathological fracture M81.0 Osteoporosis type: age-related Presence of current pathological fracture: without current pathological fracture Time Spent (min) 30
[2025-03-22 13:34] VITALS: BMI 21.1
--- OUTSIDE RECORDS SUMMARY | 2025-03-22 14:13 | XMS_ITS | Encounter Summary ---
Author Organization [facility] Address [address] [place] [address] Phone Care Team Providers Care Haz Tech Name Role Phone Darin Maldonado MD Primary Care Provider [phone] Encounter Details Date Type Department Care Team (Late st Contact Info) Description 06/14/2020 Procedure Pass [facility] Cardiology Division [address] [facility], [address] [place] [address] Social History Tobacco Use Types Packs/Day Years [...] Care Team (Late st Contact Info) Description 07/26/2025 1:15 PM EST Office Visit [facility] Medical Endocrine [address] [facility] [address] [place] [address] Lorna Schreiber MD [address] [place] [address] [email or web address] 02/08/2026 8:00 AM EDT Telemedicine - audio only [facility] Cardiac Arrhythmia Service [address] [facility], 5th Floor, [address] [place] [address] Neetu Albarran, NAIL GALVANIZER [address] [place] [address] [email or web address] documented as of this encounter Visit Diagnoses Not on filedocumented in this encounter Care Teams Haz Tech Relationship Specialty Start Date End Date Darin Maldonado MD [address] [place] [address] Dr Lemus [address] [place] [address] PCP - General Internal Medicine 11/07/17 documented as of this encounter Additional Source Comments The information contained in this document represents components of the legal health record. It is not the complete legal health record.[facility]
--- OUTSIDE RECORDS SUMMARY | 2025-03-22 14:13 | XMS_ITS | Encounter Summary ---
Author Organization [facility] Address [address] [place] [address] Phone Care Team Providers Care Airset Caster Name Role Phone Darin Maldonado MD Primary Care Provider [phone] Encounter Details Date Type Department Care Team (Late st Contact Info) Description 05/21/2021 Procedure Pass [facility] Cardiology Division [address] [facility], [address] [place] [address] Social History Tobacco Use Types Packs/Day Years [...] Description 07/26/2025 1:15 PM EST Office Visit [facility] Medical Endocrine [address] [facility] [address] [place] [address] Lorna Schreiber MD [address] [place] [address] [email or web address] 02/08/2026 8:00 AM EDT Telemedicine - audio only [facility] Cardiac Arrhythmia Service [address] [facility], 5th Floor, [address] [place] [address] Neetu Albarran, SARAN [address] [place] [address] [email or web address] documented as of this encounter Visit Diagnoses Not on filedocumented in this encounter Care Teams Airset Caster Relationship Specialty Start Date End Date Darin Maldonado MD [address] [place] [address] Dr Lemus [address] [place] [address] PCP - General Internal Medicine 11/07/17 documented as of this encounter Additional Source Comments The information contained in this document represents components of the legal health record. It is not the complete legal health record.[facility]
--- OUTSIDE RECORDS SUMMARY | 2025-03-22 14:13 | XMS_ITS | Encounter Summary ---
Author Organization [facility] Address [address] [place] [address] Phone Care Team Providers Care Outsole Flexer Name Role Phone Darin Maldonado MD Primary Care Provider [phone] Encounter Details Date Type Department Care Team (Late st Contact Info) Description 12/26/2017 Procedure Pass [facility] EP Pacer Lab [address] [facility], [address] 1, [address] [place] [phone] Social History Tobacco Use Types Packs/Day Years Used Date Smoking Tobacco: Never Smokeless Tobacco: Never Alcohol Use Standard Drinks/Week Comments No 0 (1 standard drink = 0.6 oz pur e alcohol) Comments Unknown Sex and Gender Information Value Date Recorded Sex Assigned at Not on file Legal Sex Female 3:30 PM EDT Gender Identity Not on file Sexual Orientation Not on file documented as of this encounter Plan of Treatment Upcoming Encounters Date Type Department Care Team (Late st Contact Info) Description 07/26/2025 1:15 PM EST Office Visit [facility] Medical Endocrine [address] [facility] [address] [place] [address] Lorna Schreiber MD [address] [place] [address] [email or web address] 02/08/2026 8:00 AM EDT Telemedicine - audio only [facility] Cardiac Arrhythmia Service [address] [facility], 5th Floor, [address] [place] [address] Neetu Albarran, ASSEMBLYMAN OR WOMAN [address] [place] [address] [email or web address] documented as of this encounter Visit Diagnoses Not on filedocumented in this encounter Care Teams Outsole Flexer Relationship Specialty Start Date End Date Darin Maldonado MD [address] [place] [address] [place] [address] PCP - General Internal Medicine 11/07/17 documented as of this encounter Additional Source Comments The information contained in this document represents components of the legal health record. It is not the complete legal health record.[facility]
--- OUTSIDE RECORDS SUMMARY | 2025-03-22 14:13 | XMS_ITS | Clinical Summary ---
Author Organization [facility] Address [address] [place] [address] Phone Care Team Providers Care Utility Bill Collector Name Role Phone Darin Maldonado MD Primary Care Provider [phone] Surgical History Surgery Date Site/Laterality Comments BREAST SURGERY PROCEDURE: IN UNLISTED PROCEDURE BREAST OTHER SURGICAL HISTORY PROCEDURE: HYSTEROSCOPY, DIAGNOSTIC STEREOTACTIC CORE BIOPSY Right BREAST CYST ASPIRATION Right Medical History Medical History Date Comments Osteoporosis DX:Osteoporosis Heart abnormality DX:Heart abnor mality History of cardiac monitoring DX :History of cardiac monitoring Family History Medical History Relation Name Comments Breast cancer Father's Sister Relation Name Status Comments Father's Sister Social History Tobacco Use Types Packs/Day Years Used Date Smoking Tobacco: Former Smokeless Tobacco: Never Alcohol Use Standard Drinks/Week Comments Yes 0 (1 standard drink = 0.6 oz pur e alcohol) Comments No Sex and Gender Information Value Date Recorded Sex Assigned at Not on file Legal Sex Female 4:11 PM EST Gender Identity Not on file Sexual Orientation Not on file Obstetrics History Para Term AB IAB SAB Ectopic Multiple Livin g Live Births 1 Last Filed Vital Signs Vital Sign Reading Time Taken Comments Blood Pressure - - Pulse - - Temperature - - Respiratory Rate - - Oxygen Saturation - - Inhaled Oxygen Concentration - - Weight 61.2 kg (135 lb) 10/29/2024 2:32 PM EDT Height 171.5 cm (5' 7.5 ) 10/29/2024 2:32 PM EDT Body Mass Index 20.83 10/29/2024 2:32 PM EDT Plan of Treatment Health Maintenance Due Date Last Done Comments Colorectal Cancer Screening: Colonoscopy 1960 Pneumococcal Vaccine: 50+ Years (1 of 1 - PCV) 2008 Zoster Vaccines (1 of 2) 2008 Hepatitis C Screening 05/22/2022 Osteoporosis Screening (Bone Density Screening) 05/22/2022 Social Influencers of Health Screening 05/22/2022 Falls Risk Assessment 09/08/2023 Depression Screening 06/23/2024 COVID-19 Vaccine ( season) 2025 03/20/2023, 03/16/2022, 05/25/2021, Additional history exists Influenza Vaccine (#1) 2025 , 05/08/2022, 05/16/2021, Additional history exists Breast Cancer Screening 10/29/2026 10/30/19, 06/19/2023, 05/01/2022, Additional history exists DTaP,Tdap,and Td Vaccines (2 - Td or Tdap) 03/17/2033 03/17/2023 RSV Immunization Adult Patients (1 - 1-dose 75+ series) 2033 HIB Vaccines Aged Out No longer eligi ble based on patient's age to complete this topic HPV Vaccines Aged Out No longer eligi ble based on patient's age to complete this topic Hepatitis A Vaccines Aged Out No long er eligible based on patient's age to complete this topic Hepatitis B Vaccines Aged Out No long er eligible based on patient's age to complete this topic IPV Vaccines Aged Out No longer eligi ble based on patient's age to complete this topic MMR Vaccines Aged Out No longer eligi ble based on patient's age to complete this topic Meningococcal ACWY Vaccine Aged Out N o longer eligible based on patient's age to complete this topic Meningococcal B Vaccine Aged Out No l onger eligible based on patient's age to complete this topic RSV Immunization Patients Under 20 months Aged Out No longer eligible based on patient's age to complete this topic Varicella Vaccines Aged Out No longer eligible based on patient's age to complete this topic Procedures Procedure Name Priority Date/Time Associated Diagnosis Comments MG MAMMO DIGITAL SCREENING W RYAN BILAT Routine 10/29/2024 2:39 PM EDT Encounter for screening mammogram for breast cancer from Last 3 Months or Most Recently Relevant to Health Maintenance Results * MG Mammo Digital Screening w Ryan bilat (10/29/2024 2:39 PM EDT) Anatomical Region Laterality Modality Breast Bilateral Mammography 11/01/2024 7:58 AM EDT Impressions 11/01/2024 8:04 AM EDT No mammographic evidence of malignancy. No suspicious interval change. A negative mammogram in the presence of a clinically suspicious palpable abnormality does not preclude the possibility of malignancy or alter the indications for biopsy. ASSESSMENT: BI-RADS 2: BENIGN RECOMMENDATION(S): 1: Routine screening mammogram BILATERAL in 1 year. [facility] [address], [address] -------- FINAL REPORT -------- Dictated By: Jaime Joya Dictated Date: 11/01/2024 07:58 ET Assigned Physician: Jaime Joya Reviewed and Electronically Signed By: Jaime Joya Signed Date: 11/01/2024 08:04 ET Workstation ID: [id number] Transcribed By: Self Edit Transcribed Date: 11/01/2024 07:58 ET Narrative 11/01/2024 8:04 AM EDT EXAM: SCREENING MAMMOGRAPHY, BILATERAL HISTORY: SCREENING. Paternal aunt with history of breast cancer. Surgical removal of complex cyst left breast 2 o'clock position 2007 COMPARISON: 06/19/23, 04/30/22 TECHNIQUE: Synthesized CC and MLO projections of each breast. Tomosynthesis of each breast in the CC and MLO projections. ADDITIONAL IMAGING: None Computer-aided detection was employed with the iCAD Taodyne AI 3-D. TISSUE DENSITY: The breasts are heterogeneously dense, which may obscure small masses. (BI-RADS category C) FINDINGS: RIGHT BREAST: No suspicious mass. No suspicious calcification. No distortion. No additional suspicious right breast findings LEFT BREAST: No suspicious mass. No suspicious calcification. No distortion. There are unchanged equal density circumscribed round masses and there is duct ectasia. No suspicious interval changes Procedure Note Jaime Joya MD - 11/01/2024 EXAM: SCREENING MAMMOGRAPHY, BILATERAL HISTORY: SCREENING. Paternal aunt with history of breast cancer.Surgical removal of complex cyst left breast 2 o'clock position 2007 COMPARISON: 06/19/23, 04/30/22 TECHNIQUE: Synthesized CC and MLO projections of each breast.Tomosynthesis of each breast in the CC and MLO projections. ADDITIONAL IMAGING: None Computer-aided detection was employed with the iCAD ProFound AI 3-D. TISSUE DENSITY: The breasts are heterogeneously dense, which may obscuresmall masses. (BI-RADS category C) FINDINGS: RIGHT BREAST: No suspicious mass. No suspicious calcification. No distortion. Noadditional suspicious right breast findings LEFT BREAST: No suspicious mass. No suspicious calcification. No distortion. Thereare unchanged equal density circumscribed round masses and there is ductectasia. No suspicious interval changes IMPRESSION: No mammographic evidence of malignancy. No suspicious interval change. A negative mammogram in the presence of a clinically suspicious palpableabnormality does not preclude the possibility of malignancy or alter theindications for biopsy. ASSESSMENT: BI-RADS 2: BENIGN RECOMMENDATION(S): 1: Routine screening mammogram BILATERAL in 1 year. [facility] [address], [address] -------- FINAL REPORT -------- Dictated By: Jaime Joya Dictated Date: 11/01/2024 07:58 ET Assigned Physician: Jaime Joya Reviewed and Electronically Signed By: Jaime Joya Signed Date: 11/01/2024 08:04 ET Workstation ID: [id number] Transcribed By: Self Edit Transcribed Date: 11/01/2024 07:58 ET us Self Referral Sppl IMG BI PROCEDURES Final Resul t from Last 3 Months or Most Recently Relevant to Health Maintenance Insurance [facility] Advance Directives Documents on File Type Date Recorded Patient Sales Representative Consultant Expl anation Health Care Decision (hx) 10/06/2018 AD HANDLEY DIRECTIVE Health Care Decision (hx) 10/06/2018 AD HANDLEY DIRECTIVE Health Care Decision (hx) 10/06/2018 AD HANDLEY DIRECTIVE Care Teams Utility Bill Collector Relationship Specialty Start Date End Date Darin Maldonado MD [address] [place] [address] [address] [place], [place] PCP - General Internal Medicine 09/21/18
--- OUTSIDE RECORDS SUMMARY | 2025-03-22 14:13 | XMS_ITS | Encounter Summary ---
Author Organization [facility] Address [address] [place] [address] Phone Care Team Providers Care Flower Machine Operator Name Role Phone Darin Maldonado MD Primary Care Provider [phone] Encounter Details Date Type Department Care Team (Late st Contact Info) Description 07/11/2021 Procedure Pass [facility] EP Pacer Lab [address] [facility], Floor 1, Room [address] [place] [id number] Social History Tobacco Use Types Packs/Day Years [...] Description 07/26/2025 1:15 PM EST Office Visit [facility] Medical Endocrine [address] [facility] [address] [place] [address] Lorna Schreiber MD [address] [place] [address] [email or web address] 02/08/2026 8:00 AM EDT Telemedicine - audio only [facility] Cardiac Arrhythmia Service [address] [facility], 5th Floor, [address] [place] [address] Neetu Albarran, WEAVING PROFESSOR [address] [place] [address] [email or web address] documented as of this encounter Visit Diagnoses Not on filedocumented in this encounter Care Teams Flower Machine Operator Relationship Specialty Start Date End Date Darin Maldonado MD [address] [place] [address] Dr Lemus [address] [place] [address] PCP - General Internal Medicine 11/07/17 documented as of this encounter Additional Source Comments The information contained in this document represents components of the legal health record. It is not the complete legal health record.[facility]"
--- OUTSIDE RECORDS SUMMARY | 2025-03-22 14:13 | XMS_ITS | Encounter Summary ---
Author Organization [facility] Address [address] [place] [address] Phone Care Team Providers Care Return To Service Inspector Name Role Phone Darin Maldonado MD Primary Care Provider [phone] Encounter Details Date Type Department Care Team (Late st Contact Info) Description 11/22/2020 Procedure Pass [facility] Cardiology Division [address] [facility], [address] [place] [address] Social History Tobacco Use Types Packs/Day Years [...] 1:15 PM EST Office Visit [facility] Medical Endocrine [address] [facility] [address] [place] [address] Lorna Schreiber MD [address] [place] [address] [email or web address] 02/08/2026 8:00 AM EDT Telemedicine - audio only [facility] Cardiac Arrhythmia Service [address] [facility], 5th Floor, [address] [place] [address] Neetu Albarran, SARAN [address] [place] [address] [email or web address] documented as of this encounter Visit Diagnoses Not on filedocumented in this encounter Care Teams Return To Service Inspector Relationship Specialty Start Date End Date Darin Maldonado MD [address] [place] [address] Dr Lemus [address] [place] [address] PCP - General Internal Medicine 11/07/17 documented as of this encounter Additional Source Comments The information contained in this document represents components of the legal health record. It is not the complete legal health record.[facility]
--- OUTSIDE RECORDS SUMMARY | 2025-03-22 14:13 | XMS_ITS | Encounter Summary ---
Author Organization [facility] Address [address] [place] [address] Phone Care Team Providers Care Child Development Teacher Name Role Phone Darin Maldonado MD Primary Care Provider [phone] [phone] Encounter Details Date Type Department Care Team (Late st Contact Info) Description 02/19/2021 Procedure Pass [facility] Cardiology Division [address] [facility], [address] [place] [address] Social History Tobacco Use Types Packs/Day Years [...] Description 07/26/2025 1:15 PM EST Office Visit [facility] Medical Endocrine [address] [facility] [address] [place] [address] Lorna Schreiber MD [address] [place] [address] [email or web address] 02/08/2026 8:00 AM EDT Telemedicine - audio only [facility] Cardiac Arrhythmia Service [address] [facility], 5th Floor, [address] [place] [address] Neetu Albarran, SARAN [address] [place] [address] [email or web address] documented as of this encounter Visit Diagnoses Not on filedocumented in this encounter Care Teams Child Development Teacher Relationship Specialty Start Date End Date Darin Maldonado MD [address] [place] [address] Dr Lemus [address] [place] [address] PCP - General Internal Medicine 11/07/17 documented as of this encounter Additional Source Comments The information contained in this document represents components of the legal health record. It is not the complete legal health record.[facility]
--- OUTSIDE RECORDS SUMMARY | 2025-03-22 14:13 | XMS_ITS | Encounter Summary ---
Author Organization [facility] Address [address] [place] [address] Phone Care Team Providers Care Blasting Cap Assembler Name Role Phone Darin Maldonado MD Primary Care Provider [phone] [phone] Encounter Details Date Type Department Care Team (Late st Contact Info) Description 04/05/2021 Procedure Pass [facility] Cardiology Division [address] [facility], [address] [place] [address] Social History Tobacco Use Types Packs/Day Years [...] 07/26/2025 1:15 PM EST Office Visit [facility] Medical Endocrine [address] [facility] [address] [place] [address] Lorna Schreiber MD [address] [place] [address] [email or web address] 02/08/2026 8:00 AM EDT Telemedicine - audio only [facility] Cardiac Arrhythmia Service [address] [facility], 5th Floor, [address] [place] [address] Neetu Albarran, SARAN [address] [place] [address] [email or web address] documented as of this encounter Visit Diagnoses Not on filedocumented in this encounter Care Teams Blasting Cap Assembler Relationship Specialty Start Date End Date Darin Maldonado MD [address] [place] [address] Dr Lemus [address] [place] [address] PCP - General Internal Medicine 11/07/17 documented as of this encounter Additional Source Comments The information contained in this document represents components of the legal health record. It is not the complete legal health record.[facility]
--- OUTSIDE RECORDS SUMMARY | 2025-03-22 14:13 | XMS_ITS | Encounter Summary ---
Author Organization [facility] Address [address] [place] [address] Phone Care Team Providers Care Boom Operator Name Role Phone Drain Maldonado MD Primary Care Provider [phone] [phone] Encounter Details Date Type Department Care Team (Late st Contact Info) Description 05/27/2020 Procedure Pass [facility] [place] [address] [facility], [address] [place] [address] Social History Tobacco Use Types Packs/Day Years [...] Description 07/26/2025 1:15 PM EST Office Visit [facility] Medical Endocrine [address] [facility] [address] [place] [address] Lorna Schreiber MD [address] [place] [address] [email or web address] 02/08/2026 8:00 AM EDT Telemedicine - audio only [facility]iac Ar[facility]hythmia Service [address] [facility], 5th Floor, [address] [place] [address] Neetu Albarran, KETTLE ROOM HELPER [address] [place] [address] [email or web address] documented as of this encounter Visit Diagnoses Not on filedocumented in this encounter Care Teams Boom Operator Relationship Specialty Start Date End Date Darin Maldonado MD [address] [place] [address] Dr Lem[address] [place] [address] PCP - General Internal Medicine 11/07/17 documented as of this encounter Additional Source Comments The information contained in this document represents components of the legal health record. It is not the complete legal health record.[facility]
--- OUTSIDE RECORDS SUMMARY | 2025-03-22 14:13 | XMS_ITS | Encounter Summary ---
Author Organization [facility] Address [address] [place] [address] Phone Care Team Providers Care Career Coordinator Name Role Phone Darin Maldonado MD Primary Care Provider [phone] Encounter Details Date Type Department Care Team (Late st Contact Info) Description 05/28/2021 Procedure Pass [facility] Cardiology Division [address] [facility], [address] [place] [address] Social History Tobacco Use Types Packs/Day Years [...] Description 07/26/2025 1:15 PM EST [facility]ocrine [address] [facility] [address] [place] [address] Lorna Schreiber MD [address] [place] [address] [email or web address] 02/08/2026 8:00 AM EDT Telemedicine - audio only [facility] Cardiac Arrhythmia Service [address] [facility], 5th Floor, [address] [place] [address] Neetu Albarran, SARAN [address] [place] [address] [email or web address] documented as of this encounter Visit Diagnoses Not on filedocumented in this encounter Care Teams Career Coordinator Relationship Specialty Start Date End Date Darin Maldonado MD [address] [place] [address] Dr Lemus [address] [place] [address] PCP - General Internal Medicine 11/07/17 documented as of this encounter Additional Source Comments The information contained in this document represents components of the legal health record. It is not the complete legal health record.[facility]
--- OUTSIDE RECORDS SUMMARY | 2025-03-22 14:13 | XMS_ITS | Encounter Summary ---
Author Organization [facility] Address [address] [place] [address] Phone Care Team Providers Care Mixing Plant Operator Name Role Phone Darin Maldonado MD Primary Care Provider [phone] [phone] Encounter Details Date Type Department Care Team (Late st Contact Info) Description 10/09/2020 Procedure Pass [facility] Cardiology Division [address] [facility], [address] [place] [address] Social History Tobacco Use Types Packs/Day Years [...] 07/26/2025 1:15 PM EST Office Visit [facility] Medical Endocrine [address] [facility] [address] [place] [address] Lorna Schreiber MD [address] [place] [address] [email or web address] 02/08/2026 8:00 AM EDT Telemedicine - audio only [facility] Cardiac Arrhythmia Service [address] [facility], 5th Floor, [address] [place] [address] Neetu Albarran, SARAN [address] [place] [address] [email or web address] [email or web address] documented as of this encounter Visit Diagnoses Not on filedocumented in this encounter Care Teams Mixing Plant Operator Relationship Specialty Start Date End Date Darin Maldonado MD [address] [place] [address] Dr Lemus [address] [place] [address] PCP - General Internal Medicine 11/07/17 documented as of this encounter Additional Source Comments The information contained in this document represents components of the legal health record. It is not the complete legal health record.[facility]
--- OUTSIDE RECORDS SUMMARY | 2025-03-22 14:13 | XMS_ITS | Encounter Summary ---
Author Organization [facility] Address [address] [place] [address] Phone Care Team Providers Care Fan Mail Clerk Name Role Phone Darin Maldonado MD Primary Care Provider [phone] [phone] Encounter Details Date Type Department Care Team (Late st Contact Info) Description 08/21/2020 Procedure Pass [facility] 6th floor [address] [place] [address] Social History Tobacco Use Types Packs/Day Years [...] on file documented as of this encounter Functional Status * Calculated C-SSRS Risk Score (Lifetime/Recent) Answer Date of Assessment Author No Risk Indicated 08/21/2020 4:24 PM Candice Singletary RN * [place] Suicide Severity Rating Scale (Screener/Recent Self-Report) Question Answer Date of Assessment Author 1. Wish to be (Past 1 Month) No 021 4:24 PM Candice Mcmanus RN 2. Non-Specific Active Suici josiah Thoughts (Past 1 Month) No 08/21/2020 4:24 PM Caron Mcmanus RN 6. Suicidal Behavior (Lifetime) No 4:24 PM Candice Mcmanus RN documented as of this encounter Plan of Treatment Upcoming Encounters Date Type Department Care Team (Late st Contact Info) Description 07/26/2025 1:15 PM EST Office Visit [facility] Medical Endocrine [address] [place] [address] Lorna Schreiber MD [address] [place] [address] [email or web address] 02/08/2026 8:00 AM EDT Telemedicine - audio only [facility] Cardiac Arrhythmia Service [address] [facility], 5th Floor, [address] [place] [address] Neetu Albarran FNP [address] [place] [address] [email or web address] documented as of this encounter Visit Diagnoses Not on filedocumented in this encounter Care Teams Fan Mail Clerk Relationship Specialty Start Date End Date Darin Maldonado MD [address] [place] [address] Dr Lem[address] [place] [address] PCP - General Internal Medicine 11/07/17 documented as of this encounter Additional Source Comments The information contained in this document represents components of the legal health record. It is not the complete legal health record.[facility]
--- OUTSIDE RECORDS SUMMARY | 2025-03-22 14:13 | XMS_ITS | Encounter Summary ---
Author Organization [facility] Address [address] [place] [address] Phone Care Team Providers Care Concrete Pourer Name Role Phone Darin Maldonado MD Primary Care Provider [phone] Encounter Details Date Type Department Care Team (Late st Contact Info) Description 02/04/2018 Procedure Pass [facility] [place] Pacer Lab [address] [facility], Floor 1, Room 110 [place] [id number] Social History Tobacco Use Types Packs/Day Years [...] Description 07/26/2025 1:15 PM EST Office Visit [facility]ocrine [address] [facility] [address] [place] [address] Lorna Schreiber MD [address] [place] [address] [email or web address] 02/08/2026 8:00 AM EDT Telemedicine - audio only [facility] Cardiac Arrhythmia Service [address] [facility], 5th Floor, [address] [place] [address] Neetu Albarran, PLANT SAFETY ENGINEER [address] [place] [address] [email or web address] documented as of this encounter Visit Diagnoses Not on filedocumented in this encounter Care Teams Concrete Pourer Relationship Specialty Start Date End Date Darin Maldonado MD [address] [place] [address] [place] [address] PCP - General Internal Medicine 11/07/17 documented as of this encounter Additional Source Comments The information contained in this document represents components of the legal health record. It is not the complete legal health record.[facility]
--- OUTSIDE RECORDS SUMMARY | 2025-03-22 14:13 | XMS_ITS | Clinical Summary ---
Author Organization [facility] Address [address] [employer] [facility] [address] [place] [address] Phone Care Team Providers Care Music Worker Name Role Phone Darin Maldonado MD Primary Care Provider [phone] [phone] Allergies Active Allergy Reactions Criticality Noted Date Comments Amoxicillin 03/03/2020 Penicillins Hives 12/26/2017 Medications SUMAtriptan (IMITREX) 100 MG tablet Take 100 mg by mouth every 2 (two) hours as needed for migraine. Active alendronate (FOSAMAX) 70 MG tablet Take 70 mg by mouth every 7 days. Take in the morning with a full glass of water, on an empty stomach, and do not take anything else by mouth or lie down for the next 30 min. Active calcium carbonate-vitam in D3 1,250 mg (500 mg elemental)-400 units Tab Take 1 tablet by mouth daily. Active melatonin 5 mg Tab Take 10 mg by mouth nightly at bedtime. Active GABAPENTIN ORAL Take 300 mg by mouth nightly at bedtime. Active celecoxib (CELEBREX) 200 MG capsule 200 mg 2 (two) times a day. 06/22/2020 Active magnesium 250 mg Tab Take by mouth daily. Active MULTIVITAMIN ORAL Take by mouth. Active acetaminophen (TYLENOL) 500 MG tablet Take 2 tablets (1,000 mg total) by mouth every 8 (eight) hours. 60 tablet 08/22/2020 Active senna (SENOKOT) 8.6 mg tablet Take 1 tablet by mouth 2 (two) times a day. 30 tablet 08/22/2020 Active topiramate (TOPAMAX) 25 MG capsule Take 25 mg by mouth daily. Active rizatriptan (MAXALT) 10 MG tablet Take 10 mg by mouth as needed for migraine. May repeat in 2 hours if needed Active calcium carbonate-vitam in D3 1500 mg (600 mg elemental)-400 units per tablet Take 2 tablets by mouth every morning. 12/27/2022 Active rOPINIRole (REQUIP) 0.5 MG tablet take 1 tablet by mouth at bedtime for 30 days 09/25/2024 Active cyclobenzaprine (FLEXERIL) 5 MG tablet take 1 tablet by mouth three times a day as needed for muscle spasm 09/17/2024 Active benzonatate (TESSALON) 100 MG capsule Take 2 capsules (200 mg total) by mouth 3 (three) times a day as needed for cough. 21 capsule 10/25/2024 Active Active Problems Problem Noted Date Diagnosed Date Age-related osteoporosis wit hout current pathological fracture 01/19/2025 Status post placement of implantable loop record er 07/11/2021 Overview (07/11/2021): IMPLANTABLE LOOP RECORDER placed 02/04/2018 to evaluate for NSVT / VT in the presence of Brugada syndrome No episodes noted during life of device It has reached BARBARA Assessment & Plan (07/11/2021 2:10 PM EST): Will plan for extraction Discussed with Dr. Marie GAFFNEY to remove at this time and not reimplant The patient is in agreement with this plan Osteoarthritis of right hip 08/21/2020 Brugada syndrome 12/01/2017 Overview (02/02/2025): Brugada syndome Procainamide challenge positive for inducible Type I pattern 12/26/2017 No episodes of syncope or near syncope IMPLANTABLE LOOP RECORDER placed 02/04/2018, no episodes, explanted 07/2021 Has an Apple watch Did have an episode of dizziness and spinning ? Vertigo Nothing since (2023) Zio from 02/2024 benign Assessment & Plan (02/02/2025 8:54 AM EDT): Doing well Will have her obtain an ECG at [facility] unless she has symptoms Brugada instructions reviewed Assessment & Plan (01/28/2024 3:25 PM EDT): Episode of dizziness Will obtain monitor and ECG at [facility] and await those results Aggressive treatment of fevers Avoid arrhythmogenic medication use Assessment & Plan (08/05/2022 8:59 AM EST): Stable Continue to monitor self and monitor with Apple watch F/U one year Assessment & Plan (03/19/2018 10:39 AM EDT): She has met with genetic counselor We will continue to monitor her IMPLANTABLE LOOP RECORDER for NSVT or VT episodes, and to monitor her for concerning symptoms F/U yearly Assessment & Plan (01/19/2018 11:56 AM EDT): In brief, this 57 woman was recently diagnosed with possible Brugada syndrome. Her initial EKG revealed ST elevation and downslopping pattern in V2 consistent with Brugada syndrome. Her subsequent Holter monitoring and echocardiogram was unremarkable. A stress test revealed a good exercise tolerance and a pattern of ST elevation in lead V2. Although she does have rare episodes of back and chest pain, it seems unlikely that these are related to Brugada syndrome, but to rule that out completely, she would need to have some form of evaluation during her symptoms. With respect to the concern of Brugada syndrome, her current EKG today reveals a Type III pattern with minimal changes in leads V1 and V2. We have discussed the background, etiology and potential treatments for Brugada syndrome in detail today. I think that it is likely that amitriptyline did contribute in part to the findings of a Brugada syndrome pattern on her prior EKGs, but we did discuss that the EKG pattern can vary over time. At her last visit, we recommended a procainamide infusion to test for an inducible Type I pattern and she recently had a markedly positive response to procainamide. We have recommended that she avoid medications that can provoke Brugada syndrome and that she aggressively control fevers with tylenol. We will have her meet with our genetics counselor, Susan Stein, to help coordinate genetic testing. We have discussed a variety of next steps including an EP study and an implantable loop recorder as she doesn't currently have an indication for an ICD in the absence of any other symptoms. With this in mind, we have recommended placement of an implantable loop recorder. Assessment & Plan (12/01/2017 2:05 PM EDT): In brief, this 57 woman was recently diagnosed with possible Brugada syndrome. Her initial EKG revealed ST elevation and downslopping pattern in V2 consistent with Brugada syndrome. Her subsequent Holter monitoring and echocardiogram was unremarkable. A stress test revealed a good exercise tolerance and a pattern of ST elevation in lead V2. Although she does have rare episodes of back and chest pain, it seems unlikely that these are related to Brugada syndrome, but to rule that out completely, she would need to have some form of evaluation during her symptoms. With respect to the concern of Brugada syndrome, her current EKG today reveals a Type III pattern with minimal changes in leads V1 and V2. We have discussed the background, etiology and potential treatments for Brugada syndrome in detail today. I think that it is likely that amitriptyline did contribute in part to the findings of a Brugada syndrome pattern on her prior EKGs, but we did discuss that the EKG pattern can vary over time. Specifically, we have recommended: - Procainamide infusion to test for an inducible Type I pattern. - Screen her daughter with at least an EKG. - Consider genetic testing. Arthritis of right hip Encounters Date Type Department Care Team Description 01/31/2025 1:00 PM EDT Telemedicine - audio only [facility] [place]ia [place] [address] [facility], 5th Floor, [address] [place] [address] Neetu Albarran FNP Brugada syndrome (Primary Dx) 01/21/2025 Telephone [facility] Internal Medicine - [place] [address] [place] [address] Ciera Miller 01/19/2025 4:58 PM EDT - 01/19/2025 11:59 PM EDT Hospital Encounter [facility] Medical Lab [address] [place] [address] Lorna Schreiber MD Discharge Disposition: Home or Self Care 01/19/2025 3:15 PM EDT Initial consult [facility] Medical Endocrine [address] [facility] [address] [place] [address] Lorna Schreiber MD Age-related osteoporosis without current pathological fracture (Primary Dx) 01/07/2025 10:00 AM EDT - 01/07/2025 11:59 PM EDT Hospital Encounter [facility], X-Ray - [address] [address] Dipak Gannon PA-C Discharge Disposition: Home or Self Care 12/20/2024 Telephone [facility] Endocrine [address] [address] Lorna Schreiber MD bone scan discussion from Last 3 Months Family History Medical History Relation Comments Arthritis Mother Hypertension Mother Heart attack Sister Relation Status Comments Father Mother Alive Sister Social History Tobacco Use Types Packs/Day Years Used Date Smoking Tobacco: Never Smokeless Tobacco: Never Tobacco Cessation:Counseling Given: Not Answered Alcohol Use Standard Drinks/Week Comments Yes 1 [...] on file Sexual Orientation Not on file Last Filed Vital Signs Vital Sign Reading Time Taken Comments Blood Pressure 120/78 01/19/2025 3:48 PM EDT Pulse 72 01/19/2025 3:48 PM EDT Temperature 36.6 C (97.8 F) 10/25/2024 6:42 PM EDT Respiratory Rate 22 01/19/2025 3:48 PM EDT Oxygen Saturation 99% 01/19/2025 3:48 PM EDT Inhaled Oxygen Concentration - - Weight 61.7 kg (136 lb) 01/19/2025 3:48 PM EDT Height 171.5 cm (5' 7.5 ) 08/05/2022 8:02 AM EST Body Mass Index 20.99 08/05/2022 8:02 AM EST Plan of Treatment Upcoming Encounters Date Type Department Care Team (Late st Contact Info) Description 07/26/2025 1:15 PM EST Office Visit [facility] Medical Endocrine [address] [place] [address] Lorna Schreiber MD [address] [place] [address] [email or web address] 02/08/2026 8:00 AM EDT Telemedicine - audio only [facility] [place]ia Service [address] [facility], 5th Floor, [address] [place] [address] Neetu Albarran, GEOGRAPHY PROFESSOR [address] [place] [address] [email or web address] Health Maintenance Due Date Last Done Comments LIPID PANEL 1958 DEPRESSION SCREENING 1970 HEPATITIS C SCREENING 1976 COLOGUARD 09/08/2003 COLONOSCOPY 09/08/2003 COLORECTAL CANCER SCREENING 09/08/2003 FIT TEST 09/08/2003 FOBT 09/08/2003 SIGMOIDOSCOPY 09/08/2003 VIRTUAL COLONOSCOPY 09/08/2003 PNEUMOCOCCAL VACCINES (50+ years) (1 of 1 - PCV) 2008 ZOSTER VACCINES (1 of 2) 2008 OSTEOPOROSIS SCREENING INITIAL (ONE-TIME) 09/08/2023 INFLUENZA VACCINE (#1) 2025 , 05/08/2022, 05/16/2021, Additional history exists COVID-19 VACCINE ( season) 2025 03/20/2023, 03/16/2022, 05/25/2021, Additional history exists MAMMOGRAM 10/29/2026 10/29/2024, 10/29/2024 Adult Td,Tdap Booster 03/17/2033 03/17/2023 RSV VACCINE (1 - 1-dose 75+ series) 2033 SMOKING STATUS SCREENING (Once After 26 Yrs) Completed 10/25/2024 HEPATITIS A VACCINES Aged Out No long er eligible based on patient's age to complete this topic HIB VACCINES Aged Out No longer eligi ble based on patient's age to complete this topic MENINGOCOCCAL VACCINES (ACWY) Aged Out No longer eligible based on patient's age to complete this topic MENINGOCOCCAL VACCINES (B) Aged Out N o longer eligible based on patient's age to complete this topic Medical Devices Implanted Type Area Spudder Device Identifier Shelf Expiration Date Model / Serial / Lot Plug Hip 48 66mm Implant Liner Hole Eliminator Thrded Positive Stop Normal 16b - [id number] Implanted:Qty: 1 on 08/21/2020 by Luis Sharma MD at [facility] Right: Hip [facility] [facility] 06/22/2030 0 / / [id number] Hip Stem 109mm Size 7 Femoral Tri Lock Gripton Bps Cementless Standard Offset - [id number] Implanted:Qty: 1 on 08/21/2020 by Luis Sharma MD at [facility] [employer] Right: Hip [facility] [employer] 01/20/2030 1011-09-28 0 / / [id number] Pin Orthopedic [id number] Smooth Double Sharp Tip S/S Steinmann Pk/6ea - [id number] Implanted:Qty: 3 on 08/21/2020 by Luis Sharma MD at [facility] STANDARD Right: Hip [employer] 1636-109 / / Acetabular Liner [id number] Plus 4 10deg Plstc Implant 10 - [id number] Implanted:Qty: 1 on 08/21/2020 by Luis Sharma MD at [facility] STANDARD Right: Hip [facility] 04/22/2025 4 / / [id number] Femoral Shell Cup 54mm Acetabular [place] - [id number] Implanted:Qty: 1 on 08/21/2020 by Luis Sharma MD at [facility] STANDARD Right: Hip [facility] [employer] 05/22/2030 1216-06-27 4 / / [id number] Hip 36mm 5.0 Articul/Tu Rom Metal Biolox Delta 05/05 Tapered Plus - [id number] Implanted:Qty: 1 on 08/21/2020 by Luis Sharma MD at [facility] STANDARD Right: Hip [facility] [employer] 06/22/2025 0 / / [id number] Explanted Type Area Spudder Device Identifier Shelf Expiration Date Model / Serial / Lot Reveal Linq Loop Recorder System - [id number] Implanted:Qty: 1 on 02/04/2018 by Richard Sheridan MD at [facility] Explanted:Qty: 1 on 08/15/2021 by Jeremy Washington MD, MPH at [facility] Implantable Monitor [employer] 09/17/2018 [id number] / [id number] / Procedures Procedure Name Priority Date/Time Associated Diagnosis Comments OUTSIDE LAB 01/27/2025 25-OH VITAMIN D Routine 01/19/2025 5:00 PM EDT Age-related osteoporosis without current pathological fracture BASIC METABOLIC PANEL Routine 01/19/2025 5:00 PM EDT Age-related osteoporosis without current pathological fracture OUTSIDE LAB 01/12/2025 OUTSIDE IMAGING 01/12/2025 OUTSIDE IMAGING 01/12/2025 XR HIPS 2+ VW EA BILAT PLUS PELVIS Routine 01/07/2025 10:59 AM EDT Pain of left hip from Last 3 Months Results * Outside Lab (01/27/2025) Only the most recent of2 resultswithin the time period is included. us Scanning Interface Provider LAB BLOOD ORDERABLES Final Result * 25-OH vitamin D (01/19/2025 5:00 PM EDT) 25 OH VIT D (TOTAL) 43 20 - 50 ng/mL [facility] [place] [address] Comment: This assay may underestimate total Vitamin D concentrations in patients receiving 50,000 IU of Vitamin D2. Blood 01/19/2025 5:00 PM EDT 01/19/2025 5:02 PM EDT Lorna Schreiber MD LAB BLOOD ORDERABLES Final R esult [facility] [phone] * (ABNORMAL) Basic metabolic panel (01/19/2025 5:00 PM EDT) Pathologist [facility] SODIUM 139 136 - 145 mmol/L [facility] Comment: POTASSIUM 4.6 3.4 - 5.1 mmol/L [facility] Comment: CHLORIDE 102 98 - 107 mmol/L [facility] Comment: CO2 29 22 - 31 mmol/L [facility] Comment: BUN 13 6 - 23 mg/dL [facility] Comment: CREATININE 0.87 0.50 - 1.20 mg/dL [facility] [place] [address] GLUCOSE 101(H) 70 - 100 mg/dL [facility] Comment: CALCIUM 9.4 8.8 - 10.7 mg/dL [facility] Comment: EGFR 73 >59 mL/min/1.7 3m2 [facility] Comment: Estimated glomerular filtration rate calculated using the CKD-EPI refit equation. ANION GAP 8 7 - 17 mmol/L [facility] Comment: Blood 01/19/2025 5:00 PM EDT 01/19/2025 5:02 PM EDT us Lorna Schreiber MD LAB BLOOD ORDERABLES Final R esult [facility] [place] [address], [facility] [address] [place] [address], [facility] [phone] * Outside Imaging Report Only (01/12/2025) us Scanning Interface Provider IMG XR CHEST Lilliam l Result * Outside Imaging Report Only (01/12/2025) us Scanning Interface Provider IMG XR CHEST Lilliam l Result * XR HIPS 2+ VW EA BILAT PLUS PELVIS (01/07/2025 10:59 AM EDT) Anatomical Region Laterality Modality Hip, Pelvis Computed Radiogr aphy 01/08/2025 3:52 PM EDT Impressions 01/08/2025 3:53 PM EDT S/P right hip arthroplasty. Hardware appears intact without evidence of complication. Mild to moderate left hip osteoarthritis with mild osseous remodeling and minor joint space narrowing. No evidence of acute, displaced fracture or dislocation within either hip or seen elsewhere within the osseous pelvis. Mild degenerative changes of the sacroiliac joints. Narrative 01/08/2025 3:53 PM EDT XR HIPS 2+ VW EA BILAT PLUS PELVIS Referring clinician's provided indication for this examination in [facility]: Pain COMPARISON: XR HIPS 2+ VW EA BILAT PLUS PELVIS Procedure Note Hoang Guy MD - 01/08/2025 XR HIPS 2+ VW EA BILAT PLUS PELVIS Referring clinician's provided indication for this examination in [facility]:Pain COMPARISON: XR HIPS 2+ VW EA BILAT PLUS PELVIS IMPRESSION: S/P right hip arthroplasty. Hardware appears intact without evidence ofcomplication. Mild to moderate left hip osteoarthritis with mild osseousremodeling and minor joint space narrowing. No evidence of acute,displaced fracture or dislocation within either hip or seen elsewherewithin the osseous pelvis. Mild degenerative changes of the sacroiliacjoints. Dipak Gannon PA-C IMG XR PELVIS Fi nal Result from Last 3 Months Insurance [facility] PPO EPO [facility] PPO EPO [facility] [place] [address] [place] [address] PPO EPO [facility] [place] [address] [place] [address] PPO EPO [facility] PPO EPO [facility] PPO EPO [facility] PPO EPO Advance Directives For more information, please contact: [phone] (9AM - 5PM Kirstie/[facility], Friday-Friday) * Full Code (Latest Code Status on File) Date Activated Date Inactivated Comments 08/21/2020 5:32 PM Question Answer Comments Code Status Confirmed With: Patient Code Status Communicated To: Other (specify belo w) Code Discussion Comments: PRECINCT I [employer]GEANT Care Teams Music Worker Relationship Specialty Start Date End Date Darin Maldonado MD [address] [place] [address] [place] [address] PCP - General Internal Medicine 11/07/17 Additional Source Comments The information contained in this document represents components of the legal health record. It is not the complete legal health record.[facility]
--- OUTSIDE RECORDS SUMMARY | 2025-03-22 14:13 | XMS_ITS | Encounter Summary ---
Author Organization [facility] Address [address] [place] [address] Phone Care Team Providers Care Office Associate Name Role Phone Darin Maldonado MD Primary Care Provider [phone] Encounter Details Date Type Department Care Team (Late st Contact Info) Description 08/15/2021 Procedure Pass [facility] EP Pacer Lab [address] [facility], Floor 1, Room [address] [place] [phone] Social History Tobacco Use Types Packs/Day Years [...] Description 07/26/2025 1:15 PM EST Office Visit [facility] Medical Endocrine [address] [facility] [address] [place] [address] Lorna Schreiber MD [address] [place] [address] [email or web address] 02/08/2026 8:00 AM EDT Telemedicine - audio only [facility] Cardiac Arrhythmia Service [address] [facility], 5th Floor, [address] [place] [address] Neetu Albarran, EVALUATOR [address] [place] [address] [email or web address] documented as of this encounter Visit Diagnoses Not on filedocumented in this encounter Care Teams Office Associate Relationship Specialty Start Date End Date Darin Maldonado MD [address] [place] [address] Dr Lemus [address] [place] [address] PCP - General Internal Medicine 11/07/17 documented as of this encounter Additional Source Comments The information contained in this document represents components of the legal health record. It is not the complete legal health record.[facility]
--- OUTSIDE RECORDS SUMMARY | 2025-03-22 14:13 | XMS_ITS | Encounter Summary ---
Author Organization [facility] Address [address] [place] [address] Phone Care Team Providers Care Preprint Analyst Name Role Phone Darin Maldonado MD Primary Care Provider [phone] Reason for Visit * Reason Onset Date Comments bone scan discussion 12/20/2024 Encounter Details Date Type Department Care Team (Late st Contact Info) Description 12/20/2024 Telephone [facility] Medical Endocrine [address] [place] [address] Lorna Schreiber MD [address] [place] [address] [email or web address] bone scan discussion Social History Tobacco Use Types Packs/Day Years [...] on file documented as of this encounter Progress Notes * Derek Bean - 12/20/2024 4:38 PM EDT [place] Patient called and is having a consult with dr PANDA 01/19/2025 and wants a bone scan to be set up sameday Please call patient to advise documented in this encounter Plan of Treatment Upcoming Encounters Date Type Department Care Team (Late st Contact Info) Description 07/26/2025 1:15 PM EST Office Visit [facility] Endocrine [address] [facility] [address] [place] [address] Lorna Schreiber MD [address] [place] [address] [email or web address] 02/08/2026 8:00 AM EDT Telemedicine - audio only [facility] [place]ia [place] [address] [facility], 5th Floor, [address] [place] [address] Neetu Albarran FNP [address] [place] [address] [email or web address] documented as of this encounter Visit Diagnoses Not on filedocumented in this encounter Care Teams Preprint Analyst Relationship Specialty Start Date End Date Darin Maldonado MD [address] [place] [address] [place] [address] PCP - General Internal Medicine 11/07/17 documented as of this encounter Additional Source Comments The information contained in this document represents components of the legal health record. It is not the complete legal health record.[facility]
--- OUTSIDE RECORDS SUMMARY | 2025-03-22 14:13 | XMS_ITS | Encounter Summary ---
Author Organization [facility] Address [address] [place] [address] Phone Care Team Providers Care Commercial Leasing Manager Name Role Phone Darin Maldonado MD Primary Care Provider [phone] [phone] Encounter Details Date Type Department Care Team (Late st Contact Info) Description 05/27/2020 Procedure Pass [facility] Cardiology Division [address] [facility], [address] [place] [address] Social History Tobacco Use Types Packs/Day Years [...] 1:15 PM EST Office Visit [facility] Medical Endocrine [address] [facility] [address] [place] [address] Lorna Schreiber MD [address] [place] [address] [email or web address] 02/08/2026 8:00 AM EDT Telemedicine - audio only [facility] Cardiac Arrhythmia Service [address] [facility], 5th Floor, [address] [place] [address] Neetu Albarran, E COMMERCE ARCHITECT [address] [place] [address] PAM@[email or web address] documented as of this encounter Visit Diagnoses Not on filedocumented in this encounter Care Teams Commercial Leasing Manager Relationship Specialty Start Date End Date Darin Maldonado MD [address] [place] [address] Dr Lemus [address] [place] [address] PCP - General Internal Medicine 11/07/17 documented as of this encounter Additional Source Comments The information contained in this document represents components of the legal health record. It is not the complete legal health record.[facility]
--- OUTSIDE RECORDS SUMMARY | 2025-03-22 14:13 | XMS_ITS | Encounter Summary ---
Author Organization [facility] Address [address] [place] [address] Care Team Providers Care Supervisor Aluminum Boat Assembly Name Role Phone Darin Maldonado MD Primary Care Provider [phone] Encounter Details Date Type Department Care Team (Latest Contact Info) Description 11/16/2024 Lab Requisition [facility] - Main Lab [address] [place] [address] Krista Astorga MD [address] [phone] Encounter for gynecological examination (general) (routine) without [...] lesion or malignancy 11/16/2024 4:27 PM EDT [facility] General Categorization Negative 11/16/2024 4:27 PM EDT [facility] Other Findings Atrophy 11/16/2024 4:27 PM [facility] Specimen Adequacy Satisfactory for evaluation 11/16/2024 4:27 PM [facility] Pap Methodology Liquid Based Pap Test 11/16/2024 4:27 PM T [facility] Disclaimer The Pap test is a screening test which carries an inherent false negative rate. These test results should be correlated with the patient's clinical findings and history. This Pap test was processed using an automated screening system. Technical cytopathology services provided by [facility], at [address] [place] [address] (CLIA # [id number]/Aldo Gasca MD, Missile Mechanic.) 11/16/2024 4:27 PM [facility] Console Pap Interpretation Reported 11/16/2024 4:27 PM [facility] Brushing/Spatula Cervix uteri structure / Unknown 11/12/2024 12:00 PM EDT 11/16/2024 7:11 AM EDT us Krisat Astorga MD LAB CYTOLOGY ORDERABLES Final Result [facility] [address] [place] [address], documented in this encounter Visit Diagnoses Diagnosis Encounter for gynecological examination (general) (routine) without abnormal findings documented in this encounter Care Teams Supervisor Aluminum Boat Assembly Relationship Specialty Start Date End Date Darin Maldonado MD [address] [place] [address] Dr Serrano [address] PCP - General Internal Medicine 09/21/18 documented as of this encounter
--- OUTSIDE RECORDS SUMMARY | 2025-03-22 14:13 | XMS_ITS | Encounter Summary ---
Author Organization [facility] Address [address] [place] [address] Phone Care Team Providers Care Extraction Operator Name Role Phone Darin Maldonado MD Primary Care Provider [phone] [phone] Encounter Details Date Type Department Care Team (Late st Contact Info) Description 08/23/2020 Procedure Pass [facility] Cardiology Division [address] [facility], [address] [place] [address] Social History Tobacco Use Types Packs/Day Years [...] Description 07/26/2025 1:15 PM EST Office Visit [facility] Medical Endocrine [address] [facility] [address] [place] [address] Lorna Schreiber MD [address] [place] [address] [email or web address] 02/08/2026 8:00 AM EDT Telemedicine - audio only [facility] Cardiac Arrhythmia Service [address] [facility], 5th Floor, [address] [place] [address] Neetu Albarran, SARAN [address] [place] [address] [email or web address] documented as of this encounter Visit Diagnoses Not on filedocumented in this encounter Care Teams Extraction Operator Relationship Specialty Start Date End Date Darin Maldonado MD [address] [place] [address] Dr Lemus [address] [place] [address] PCP - General Internal Medicine 11/07/17 documented as of this encounter Additional Source Comments The information contained in this document represents components of the legal health record. It is not the complete legal health record.[facility]
--- OUTSIDE RECORDS SUMMARY | 2025-03-22 14:13 | XMS_ITS | Encounter Summary ---
Author Organization [facility] Address [address] [place] [address] Phone Care Team Providers Care Medical Doctor Name Role Phone Darin Maldonado MD Primary Care Provider [phone] [phone] Encounter Details Date Type Department Care Team (Late st Contact Info) Description 01/05/2021 Procedure Pass [facility] Cardiology Division [address] [facility], [address] [place] [address] Social History Tobacco Use Types Packs/Day Years [...] Description 07/26/2025 1:15 PM EST Office Visit [facility] Medical Endocrine [address] [facility] [address] [place] [address] Lorna Schreiber MD [address] [place] [address] [email or web address] 02/08/2026 8:00 AM EDT Telemedicine - audio only [facility] Cardiac Arrhythmia Service [address] [facility], 5th Floor, [address] [place] [address] Neetu Albarran, SRAAN [address] [place] [address] [email or web address] documented as of this encounter Visit Diagnoses Not on filedocumented in this encounter Care Teams Medical Doctor Relationship Specialty Start Date End Date Darin Maldonado MD [address] [place] [address] Dr Lemus [address] [place] [address] PCP - General Internal Medicine 11/07/17 documented as of this encounter Additional Source Comments The information contained in this document represents components of the legal health record. It is not the complete legal health record.[facility]
--- OUTSIDE RECORDS SUMMARY | 2025-03-22 14:13 | XMS_ITS | Encounter Summary ---
Author Organization [facility] Address [address] [place] [address] Phone Care Team Providers Care Plastic Molder Name Role Phone Darin Maldonado MD Primary Care Provider [phone] [phone] Encounter Details Date Type Department Care Team (Late Contact Info) Description 01/28/2024 Procedure Pass [facility] Holter Lab [address] [facility], 5th [address], [address] [place] [address] Social History Tobacco Use Types Packs/Day Years [...] Encounters Date Type Department Care Team (Late Contact Info) Description 07/26/2025 1:15 PM EST [facility] [address] [facility] [address] [place] [address] Lorna Schreiber MD [address] [facility] [place] [address] [email or web address] 02/08/2026 8:00 AM EDT Telemedicine - audio only [facility] Cardiac Arrhythmia Service [address] [facility], 5th Floor, [address] [place] [address] Neetu Albarran FNP [address] [place] [address] PAM@[email or web address] documented as of this encounter Visit Diagnoses Not on filedocumented in this encounter Care Teams Plastic Molder Relationship Specialty Start Date End Date Darin Maldonado MD [address] [place] [address] Dr Lemus [address] [place] [address] PCP - General Internal Medicine 11/07/17 documented as of this encounter Additional Source Comments The information contained in this document represents components of the legal health record. It is not the complete legal health record.[facility]
--- OUTSIDE RECORDS SUMMARY | 2025-03-22 14:13 | XMS_ITS | Encounter Summary ---
Author Organization [facility] Address [address] [place] [address] Phone Care Team Providers Care Programmer Numerical Control Name Role Phone Darin Maldonado MD Primary Care Provider [phone] [phone] Encounter Details Date Type Department Care Team (Late st Contact Info) Description 02/04/2018 Ancillary Orders [facility] Cardiology Division [address] [place] [address], [address] [place] [address] Hari Garcia MD, PhD [address] [place] [address] [email or web address] Cardiac arrhythmia, unspecified cardiac arrhythmia type Social History Tobacco Use Types Packs/Day Years [...] Description 07/26/2025 1:15 PM EST Office Visit [facility] Medical Endocrine [address] [facility] [address] [place] [address] Lorna Schreiber MD [address] [place] [address] [email or web address] 02/08/2026 8:00 AM EDT Telemedicine - audio only [facility] Cardiac Arrhythmia Service [address] [facility], 5th Floor, [address] [place] [address] Neetu Albarran, NURSE RECEPTIONIST [address] [place] [address] PAM@[email or web address] documented as of this encounter Visit Diagnoses Diagnosis Cardiac arrhythmia, unspecified cardiac arrhythmia type documented in this encounter Care Teams Programmer Numerical Control Relationship Specialty Start Date End Date Darin Maldonado MD [address] [place] [address] [place] [address] PCP - General Internal Medicine 11/07/17 documented as of this encounter Additional Source Comments The information contained in this document represents components of the legal health record. It is not the complete legal health record.[facility]
[2025-04-05 21:16] VITALS: BMI 21.1
== END 2025-03-22 16:10 | disposition home or self-care (01) ==
LOC: HO.ENCR 13:02
PROVIDERS: PCP Internal Medicine; Visit Provider Dietitian, Registered
DX: M81.0 Age-related osteoporosis without current pathological fracture (principal)

== ENCOUNTER → 2025-03-22 13:01 | Outpatient (BNVA) | payer BC, SELFPAY | PROVIDERS: PCP Internal Medicine; Visit Provider Dietitian, Registered | DX: Z71.3 Dietary counseling and surveillance (principal); M81.0 Age-related osteoporosis without current pathological fracture | CPT/HCPCS: 97802 ==

== ENCOUNTER 2025-04-06 15:43 | Outpatient (REF) | payer BC, SELFPAY ==
[2025-04-06 17:34] LABS: Appearance Urine Cloudy; Glucose Urine UA Negative (Negative); PH 7.5 (5.0-9.0); Specific Gravity - Urine 1.010 (1.005-1.025); UMIC TRIGGER UACC YES
[2025-04-06 17:48] LABS: UACC Culture Trigger YES
--- OUTSIDE RECORDS SUMMARY | 2025-04-06 19:04 | XMS_ITS | Encounter Summary ---
Author Organization [facility] Address [address] [place] [address] Phone Care Team Providers Care Director Of State Name Role Phone Darin Maldonado MD Primary Care Provider [phone] [phone] Encounter Details Date Type Department Care Team (Late st Contact Info) Description 06/14/2020 Procedure Pass [facility] Cardiology Division [address] [facility], [address] [place] [address] Social History Tobacco Use Types Packs/Day Years [...] [facility] Medical Endocrine [address] [facility] [address] [place] [address] Lorna Schreiber MD [address] [place] [address] [email or web address] 02/08/2026 8:00 AM EDT Telemedicine - audio only [facility] Cardiac Arrhythmia Service [address] [facility], 5th Floor, [address] [place] [address] Neetu Albarran, TANK TERMINAL GAUGER [address] [place] [address] [email or web address] documented as of this encounter Visit Diagnoses Not on filedocumented in this encounter Care Teams Director Of State Relationship Specialty Start Date End Date Darin Maldonado MD [address] [place] [address] Dr Lemus [address] [place] [address] PCP - General Internal Medicine 11/07/17 documented as of this encounter Additional Source Comments The information contained in this document represents components of the legal health record. It is not the complete legal health record.[facility]
--- OUTSIDE RECORDS SUMMARY | 2025-04-06 19:04 | XMS_ITS | Encounter Summary ---
Author Organization [facility] Address [address] [place] [address] Care Team Providers Care Sumatra Opener Name Role Phone Darin Maldonado MD Primary Care Provider Encounter Details Date Type Department Care Team (Latest Contact Info) Description 11/16/2024 Lab Requisition [facility] - Main Lab [address] [place] [address] Krista Astorga MD [address] [phone] Encounter for gynecological examination (general) (routine) without [...] lesion or malignancy 11/16/2024 4:27 PM EDT [facility] General Categorization Negative 11/16/2024 4:27 PM EDT [facility] Other Findings Atrophy 11/16/2024 4:27 PM [facility] Specimen Adequacy Satisfactory for evaluation 11/16/2024 4:27 PM [facility] Pap Methodology Liquid Based Pap Test 11/16/2024 4:27 PM T [facility] Disclaimer The Pap test is a screening test which carries an inherent false negative rate. These test results should be correlated with the patient's clinical findings and history. This Pap test was processed using an automated screening system. Technical cytopathology services provided by [facility], at [address] [place] [address] (CLIA # [id number]/Aldo Gasca MD, Commercial Roofer.) 11/16/2024 4:27 PM [facility] Console Pap Interpretation Reported 11/16/2024 4:27 PM [facility] Brushing/Spatula Cervix uteri structure / Unknown 11/12/2024 12:00 PM EDT 11/16/2024 7:11 AM EDT us Krista Astorga MD LAB CYTOLOGY ORDERABLES Final Result [facility] [address] [place] [address], documented in this encounter Visit Diagnoses Diagnosis Encounter for gynecological examination (general) (routine) without abnormal findings documented in this encounter Care Teams Sumatra Opener Relationship Specialty Start Date End Date Darin Maldonado MD [address] [place] [address] Dr Serrano [address] PCP - General Internal Medicine 09/21/18 documented as of this encounter
--- OUTSIDE RECORDS SUMMARY | 2025-04-06 19:04 | XMS_ITS | Encounter Summary ---
Author Organization [facility] Address [address] [place] [address] Phone Care Team Providers Care Scissors Sharpener Name Role Phone Darin Maldonado MD Primary Care Provider [phone] [phone] Encounter Details Date Type Department Care Team (Late st Contact Info) Description 05/28/2021 Procedure Pass [facility] Cardiology Division [address] [facility], [address] [place] [address] Social History Tobacco Use Types Packs/Day Years [...] Description 07/26/2025 1:15 PM EST Office Visit [facility] Medical Endocrine [address] [facility] [address] [place] [address] Lorna Schreiber MD [address] [place] [address] [email or web address] 02/08/2026 8:00 AM EDT Telemedicine - audio only [facility] Cardiac Arrhythmia Service [address] [facility], 5th Floor, [address] [place] [address] Neetu Albarran, SARAN [address] [place] [address] [email or web address] documented as of this encounter Visit Diagnoses Not on filedocumented in this encounter Care Teams Scissors Sharpener Relationship Specialty Start Date End Date Darin Maldonado MD [address] [place] [address] Dr Lemus [address] [place] [address] PCP - General Internal Medicine 11/07/17 documented as of this encounter Additional Source Comments The information contained in this document represents components of the legal health record. It is not the complete legal health record.[facility]
--- OUTSIDE RECORDS SUMMARY | 2025-04-06 19:04 | XMS_ITS | Encounter Summary ---
Author Organization [facility] Address [address] [place] [address] Phone Care Team Providers Care Development Specialist Name Role Phone Darin Maldonado MD Primary Care Provider [phone] [phone] Encounter Details Date Type Department Care Team (Late st Contact Info) Description 08/23/2020 Procedure Pass [facility] Cardiology Division [address] [facility], [address] [place] [address] Social History Tobacco Use Types Packs/Day Years [...] Visit [facility] Medical Endocrine [address] [facility] [address] [place] [address] Lorna Schreiber MD [address] [place] [address] [email or web address] 02/08/2026 8:00 AM EDT Telemedicine - audio only [facility] Cardiac Arrhythmia Service [address] [facility], 5th Floor, [address] [place] [address] Neetu Albarran, SARAN [address] [place] [address] [email or web address] documented as of this encounter Visit Diagnoses Not on filedocumented in this encounter Care Teams Development Specialist Relationship Specialty Start Date End Date Darin Maldonado MD [address] [place] [address] Dr Lemus [address] [place] [address] PCP - General Internal Medicine 11/07/17 documented as of this encounter Additional Source Comments The information contained in this document represents components of the legal health record. It is not the complete legal health record.[facility]
--- OUTSIDE RECORDS SUMMARY | 2025-04-06 19:04 | XMS_ITS | Encounter Summary ---
Author Organization [facility] Address [address] [facility] [place] [address] Phone Care Team Providers Care Sales Closer Name Role Phone Darin Maldonado MD Primary Care Provider +1 [phone] Encounter Details Date Type Department Care Team (Late st Contact Info) Description 08/21/2020 Procedure Pass [facility] 6th floor [address] [place] [address] Social History Tobacco Use Types Packs/Day Years [...] 08/21/2020 4:24 PM Candice Singletary RN * [place] Suicide Severity Rating Scale (Screener/Recent Self-Report) Question [...] Description 07/26/2025 1:15 PM EST Office Visit [facility] Medical Endocrine [address] [place] [address] Lorna Schreiber MD [address] [place] [address] [email or web address] 02/08/2026 8:00 AM EDT Telemedicine - audio only [facility] Cardiac Arrhythmia Service [address] [facility], 5th Floor, [address] [place] [address] Neetu Albarran FNP [address] [place] [address] PAM@[email or web address] documented as of this encounter Visit Diagnoses Not on filedocumented in this encounter Care Teams Sales Closer Relationship Specialty Start Date End Date Darin Maldonado MD [address] [place] [address] Dr Lemus [address] [place] [address] PCP - General Internal Medicine 11/07/17 documented as of this encounter Additional Source Comments The information contained in this document represents components of the legal health record. It is not the complete legal health record.[facility]
--- OUTSIDE RECORDS SUMMARY | 2025-04-06 19:05 | XMS_ITS | Encounter Summary ---
Author Organization [facility] Address [address] [place] [address] Phone Care Team Providers Care Latin Dance Instructor Name Role Phone Darin Maldonado MD Primary Care Provider +1 -[phone] Encounter Details Date Type Department Care Team (Late st Contact Info) Description 02/04/2018 Ancillary Orders [facility] Cardiology Division [address] [place] [address], [address] [place] [address] Hari Garcia MD, PhD [address] [place] [address] [email or web address] Cardiac arrhythmia, unspecified cardiac arrhythmia type Social [...] Description 07/26/2025 1:15 PM EST Office Visit [facility] Medical Endocrine [address] [facility] [address] [place] [address] Lorna Schreiber MD [address] [facility]. [address] [place] [address] [email or web address] 02/08/2026 8:00 AM EDT Telemedicine - audio only [facility] Cardiac Arrhythmia Service [address] [facility], 5th Floor, [address] [place] [address] Neetu Albarran, SEAL EXTRUSION OPERATOR [address] [place] [address] [email or web address] documented as of this encounter Visit Diagnoses Diagnosis Cardiac arrhythmia, unspecified cardiac arrhythmia type documented in this encounter Care Teams Latin Dance Instructor Relationship Specialty Start Date End Date Darin Maldonado MD [address] [place] [address] [place] [address] PCP - General Internal Medicine 11/07/17 documented as of this encounter Additional Source Comments The information contained in this document represents components of the legal health record. It is not the complete legal health record.[facility]
--- OUTSIDE RECORDS SUMMARY | 2025-04-06 19:05 | XMS_ITS | Encounter Summary ---
Author Organization [facility] Address [address] [place] [address] Phone Care Team Providers Care Insulation Extruder Operator Name Role Phone Darin Maldonado MD Primary Care Provider +1 [phone] Encounter Details Date Type Department Care Team (Late st Contact Info) Description 07/11/2021 Procedure Pass [facility] EP Pacer Lab 55 [facility], Floor 1, Room [address] [place] [phone] Social History Tobacco Use Types Packs/Day Years [...] 1:15 PM EST Office Visit [facility] [address] [facility] [address] [place] [address] Lorna Schreiber MD [address] [place] [address] [email or web address] 02/08/2026 8:00 AM EDT Telemedicine - audio only [facility] Cardiac Arrhythmia Service [address] [facility], 5th Floor, [address] [place] [address] Neetu Albarran, BAKERY CHEF [address] [place] [address] [email or web address] documented as of this encounter Visit Diagnoses Not on filedocumented in this encounter Care Teams Insulation Extruder Operator Relationship Specialty Start Date End Date Darin Maldonado MD [address] [place] [address] Dr Lemus [address] [place] [address] PCP - General Internal Medicine 11/07/17 documented as of this encounter Additional Source Comments The information contained in this document represents components of the legal health record. It is not the complete legal health record.[facility]
--- OUTSIDE RECORDS SUMMARY | 2025-04-06 19:05 | XMS_ITS | Encounter Summary ---
Author Organization [facility] Address [address] [place] [address] Phone Care Team Providers Care Boilermaker Loftsman Name Role Phone Darin Maldonado MD Primary Care Provider +1 [phone] Encounter Details Date Type Department Care Team (Late st Contact Info) Description 04/05/2021 Procedure Pass [facility] Cardiology Division [address] [facility], [address] [place] [address] Social History Tobacco Use Types Packs/Day Years [...] 1:15 PM EST Office Visit [facility] [address] [facility] [address] [place] [address] Lorna Schreiber MD [address] [place] [address] [email or web address] 02/08/2026 8:00 AM EDT Telemedicine - audio only [facility] Cardiac Arrhythmia Service 32 [facility], 5th Floor, [address] [place] [address] Neetu Albarran, SARAN [address] [place] [address] [email or web address] documented as of this encounter Visit Diagnoses Not on filedocumented in this encounter Care Teams Boilermaker Loftsman Relationship Specialty Start Date End Date Darin Maldonado MD [address] [place] [address] Dr Lemus [address] [place] [address] PCP - General Internal Medicine 11/07/17 documented as of this encounter Additional Source Comments The information contained in this document represents components of the legal health record. It is not the complete legal health record.[facility]
--- OUTSIDE RECORDS SUMMARY | 2025-04-06 19:05 | XMS_ITS | Clinical Summary ---
Author Organization [facility] Address [address] [place] [address] Phone Care Team Providers Care Regional Owner Operator Truck Driver Name Role Phone Darin Maldonado MD Primary Care Provider Surgical History Surgery Date Site/Laterality Comments BREAST SURGERY PROCEDURE: AR UNLISTED PROCEDURE BREAST OTHER SURGICAL HISTORY PROCEDURE: [...] year. Mammography location: [facility] [address], [address] -------- FINAL REPORT -------- Dictated By: Jaime Joya Dictated Date: 11/01/2024 07:58 ET Assigned Physician: Jaime Joya Reviewed and Electronically Signed By: Jaime Joya Signed Date: 11/01/2024 08:04 ET Workstation ID: [id number] Transcribed By: Self Edit Transcribed Date: 11/01/2024 [...] Computer-aided detection was employed with the [employer] AI 3-D. TISSUE DENSITY: The breasts are [...] year. Mammography location: [facility] [address], [address] -------- FINAL REPORT -------- Dictated By: Jaime Joya Dictated Date: 11/01/2024 07:58 ET Assigned Physician: Jaime Joya Reviewed and Electronically Signed By: Jaime Joya Signed Date: 11/01/2024 08:04 ET Workstation ID: [id number] Transcribed By: Self Edit Transcribed Date: 11/01/2024 07:58 ET us Self Referral Sppl IMG BI PROCEDURES Final Resul t from Last 3 Months or Most Recently Relevant to Health Maintenance Insurance [facility] Advance Directives Documents on File Type Date Recorded Patient Records Management Manager Expl anation Health Care Decision (hx) 10/06/2018 AD HANDLEY DIRECTIVE Health Care Decision (hx) 10/06/2018 AD HANDLEY DIRECTIVE Health Care Decision (hx) 10/06/2018 AD HANDLEY DIRECTIVE Care Teams Regional Owner Operator Truck Driver Relationship Specialty Start Date End Date Darin Maldonado MD [address] [place] [address] [address] [place], [place] PCP - General Internal Medicine 09/21/18
--- OUTSIDE RECORDS SUMMARY | 2025-04-06 19:05 | XMS_ITS | Clinical Summary ---
Author Organization [facility] Address [address] [facility] [address] [place] [address] Phone Care Team Providers Care Patient Relations Representative Name Role Phone Darin Maldonado MD Primary Care Provider +1 [phone] Allergies Active Allergy Reactions Criticality Noted Date [...] Will have her obtain an ECG at [facility] unless she has symptoms Brugada instructions reviewed Assessment & Plan (01/28/2024 3:25 PM EDT): Episode of dizziness Will obtain monitor and ECG at [facility] and await those results Aggressive treatment of [...] Encounters Date Type Department Care Team Description 03/31/2025 Telephone [facility] Endocrine [address] [place] [address] Lorna Schreiber MD DEXA Order 01/31/2025 1:00 PM EDT Telemedicine - audio only [facility] Cardiac Arrhythmia Service 32 [facility], 5th Floor, [address] [place] [address] Neetu Albarran FNP Brugada syndrome (Primary Dx) 01/21/2025 Telephone [facility] Internal Medicine - [place] [address] [place] [address] Ciera Miller 01/19/2025 4:58 PM EDT - 01/19/2025 11:59 PM EDT Hospital Encounter [facility] [address] [place] [address] Lorna Schreiber MD Discharge Disposition: Home or Self Care 01/19/2025 3:15 PM EDT Initial consult [facility] [address] [place] [address] Lorna Schreiber MD Age-related osteoporosis without current pathological fracture (Primary Dx) 01/07/2025 10:00 AM EDT - 01/07/2025 11:59 PM EDT Hospital Encounter [facility], X-Ray - [address] [address] Dipak Gannon PA-C Discharge Disposition: Home or Self Care from Last 3 Months Family History Medical [...] Description 07/26/2025 1:15 PM EST Office Visit [facility] [address] [place] [address] Lorna Schreiber MD [address] [place] [address] [email or web address] 02/08/2026 8:00 AM EDT Telemedicine - audio only [facility] Cardiac Arrhythmia Service 32 [facility], 5th Floor, [address] [place] [address] Neetu Albarran, CRM MARKETING EXECUTIVE [address] [place] [address] [email or web address] Maintenance Due Date Last Done Comments [...] this topic Medical Devices Implanted Type Area Flight Attendant Device Identifier Shelf Expiration Date Model / Serial / Lot Plug Hip 48 66mm Implant Liner Hole Eliminator Thrded Positive Stop [place] 16b - [id number] Implanted:Qty: 1 on 08/21/2020 by Luis Sharma MD at [facility] Right: Hip [facility] 06/22/2030 0 / / [id number] Hip Stem 109mm Size 7 Femoral Tri Lock Gripton Bps Cementless Standard Offset - [id number] Implanted:Qty: 1 on 08/21/2020 by Luis Sharma MD at [facility] Right: Hip [facility] [facility] 01/20/2030 1011-09-28 0 / / [id number] Pin Orthopedic 3.8ihp097 Smooth Double Sharp Tip S/S Steinmann Pk/6ea - [id number] Implanted:Qty: 3 on 08/21/2020 by Luis Sharma MD at [facility] STANDARD Right: Hip [employer] 1636-109 / / Acetabular Liner 31b96ur Plus 4 10deg Plstc Implant 10 - [id number] Implanted:Qty: 1 on 08/21/2020 by Luis Sharma MD at [facility] STANDARD Right: Hip [facility] 04/22/2025 4 / / [id number] Femoral Shell Cup 54mm Acetabular [place] [employer] - [id number] Implanted:Qty: 1 on 08/21/2020 by Luis Sharma MD at [facility] STANDARD Right: Hip [facility] [employer] 05/22/2030 1216-06-27 4 / / [id number] Hip 36mm 5.0 Articul/Tu Rom Metal Biolox Delta 05/05 Tapered Plus - [id number] Implanted:Qty: 1 on 08/21/2020 by Luis Sharma MD at [facility] STANDARD Right: Hip [facility] [employer] 06/22/2025 0 / / [id number] Explanted Type Area Flight Attendant Device Identifier Shelf Expiration Date Model / Serial / Lot Reveal Linq Loop Recorder System - [id number] Implanted:Qty: 1 on 02/04/2018 by Richard Sheridan MD at [facility] Explanted:Qty: 1 on 08/15/2021 by Jeremy Washington MD, MPH at [facility] Implantable Monitor [employer] 09/17/2018 LNQ11 / [id number] / Procedures Procedure Name Priority Date/Time [...] 43 20 - 50 ng/mL [facility] [place] [address] Comment: This assay may underestimate total Vitamin D concentrations in patients receiving 50,000 IU of Vitamin D2. Blood 01/19/2025 5:00 PM EDT 01/19/2025 5:02 PM EDT Lorna Schreiber MD LAB BLOOD ORDERABLES Final R esult [facility] [phone] * (ABNORMAL) Basic metabolic panel (01/19/2025 5:00 PM EDT) Pathologist [facility] SODIUM 139 136 - 145 mmol/L [facility] Comment: POTASSIUM 4.6 3.4 - 5.1 mmol/L [facility] Comment: CHLORIDE 102 98 - 107 mmol/L [facility] Comment: CO2 29 22 - 31 mmol/L [facility] Comment: BUN 13 6 - 23 mg/dL [facility] Comment: CREATININE 0.87 0.50 - 1.20 mg/dL [facility] [place] [address] GLUCOSE 101(H) 70 - 100 mg/dL [facility] Comment: CALCIUM 9.4 8.8 - 10.7 mg/dL [facility] Comment: EGFR 73 >59 mL/min/1.7 3m2 [facility] Comment: Estimated glomerular filtration rate calculated using the CKD-EPI refit equation. ANION GAP 8 7 - 17 mmol/L [facility] Comment: Blood 01/19/2025 5:00 PM EDT 01/19/2025 5:02 PM EDT us Lorna Schreiber MD LAB BLOOD ORDERABLES Final R esult [facility] [place] [address], [facility] [address] [place] [address], [facility] [phone] * Outside Imaging Report Only (01/12/2025) us [...] clinician's provided indication for this examination in [facility]: Pain COMPARISON: XR HIPS 2+ VW EA BILAT PLUS PELVIS Procedure Note Hoang Guy MD - 01/08/2025 XR HIPS 2+ VW EA BILAT PLUS PELVIS Referring clinician's provided indication for this examination in [facility]:Pain COMPARISON: XR HIPS 2+ VW EA [...] nal Result from Last [address] [facility] PPO EPO [facility] PPO EPO [facility] [place] [address] [place] [address] [facility] [place] [address] [place] [address] [facility] PPO EPO [facility] PPO EPO [facility] PPO EPO Advance Directives For more information, please contact: [phone] (9AM - 5PM Kirstie/[facility], Friday-Friday) * Full Code (Latest Code Status on File) Date Activated Date Inactivated Comments 08/21/2020 5:32 PM Question Answer Comments Code Status Confirmed With: Patient Code Status Communicated To: Other (specify belo w) Code Discussion Comments: SUPERVISOR OVENS Care Teams Patient Relations Representative Relationship Specialty Start Date End Date Darin Maldonado MD [address] [place] [address] [place] [address] PCP - General Internal Medicine 11/07/17 Additional Source Comments The information contained in this document represents components of the legal health record. It is not the complete legal health record.[facility]
--- OUTSIDE RECORDS SUMMARY | 2025-04-06 19:05 | XMS_ITS | Encounter Summary ---
Author Organization [facility] Address [address] [place] [address] Phone Care Team Providers Care Ciaio Lumite Injector Name Role Phone Darin Maldonado MD Primary Care Provider +1 [phone] Encounter Details Date Type Department Care Team (Late st Contact Info) Description 02/04/2018 Procedure Pass [facility] EP Pacer Lab 55 [facility], Floor 1, Room 110 [place] [phone] Social History Tobacco Use Types Packs/Day Years [...] 1:15 PM EST Office Visit [facility] [address] [facility] [address] [place] [address] Lorna Schreiber MD [address] [place] [address] [email or web address] 02/08/2026 8:00 AM EDT Telemedicine - audio only [facility] Cardiac Arrhythmia Service 32 [facility], 5th Floor, [address] [place] [address] Neetu Albarran, NURSE LEADER [address] [place] [address] [email or web address] documented as of this encounter Visit Diagnoses Not on filedocumented in this encounter Care Teams Ciaio Lumite Injector Relationship Specialty Start Date End Date Darin Maldonado MD [address] [place] [address] [place] [address] PCP - General Internal Medicine 11/07/17 documented as of this encounter Additional Source Comments The information contained in this document represents components of the legal health record. It is not the complete legal health record.[facility]
--- OUTSIDE RECORDS SUMMARY | 2025-04-06 19:05 | XMS_ITS | Encounter Summary ---
Author Organization [facility] Address [address] [place] [address] Phone Care Team Providers Care Glycerin Operator Name Role Phone Darin Maldonado MD Primary Care Provider +1 -[phone] Encounter Details Date Type Department Care Team (Late st Contact Info) Description 05/27/2020 Procedure Pass [facility] Cardiology Division [address] [facility], [address] [place] [address] Social History Tobacco Use Types Packs/Day Years [...] 1:15 PM EST Office Visit [facility] Medical Endocrine [address] [facility] [address] [place] [address] Lorna Schreiber MD [address] [place] [address] [email or web address] 02/08/2026 8:00 AM EDT Telemedicine - audio only [facility] Cardiac Arrhythmia Service 32 [facility], 5th Floor, [address] [place] [address] Neetu Albarran, ASSISTANT PRODUCE MANAGER [address] [place] [address] [email or web address] documented as of this encounter Visit Diagnoses Not on filedocumented in this encounter Care Teams Glycerin Operator Relationship Specialty Start Date End Date Darin Maldonado MD [address] [place] [address] Dr Lemus [address] [place] [address] PCP - General Internal Medicine 11/07/17 documented as of this encounter Additional Source Comments The information contained in this document represents components of the legal health record. It is not the complete legal health record.[facility]
--- OUTSIDE RECORDS SUMMARY | 2025-04-06 19:05 | XMS_ITS | Encounter Summary ---
Author Organization [facility] Address [address] [place] [address] Phone Care Team Providers Care Event Staff Member Name Role Phone Darin Maldonado MD Primary Care Provider [phone] [phone] Encounter Details Date Type Department Care Team (Late st Contact Info) Description 02/19/2021 Procedure Pass [facility] Card[place] [address] [facility], [address] [place] [address] Social History Tobacco Use Types Packs/Day Years [...] 1:15 PM EST Office Visit [facility] [address] [facility] [address] [place] [address] Lorna Schreiber MD [address] [place] [address] [email or web address] 02/08/2026 8:00 AM EDT Telemedicine - audio only [facility] [place]iac Arrhythmia Service 32 [facility], 5th Floor, [address] [place] [address] Neetu Albarran, SARAN [address] [place] [address] [email or web address] [email or web address] [email or web address] documented as of this encounter Visit Diagnoses Not on filedocumented in this encounter Care Teams Event Staff Member Relationship Specialty Start Date End Date Darin Maldonado MD [address] [place] [address] Dr Lem[address] [place] [address] PCP - General Internal Medicine 11/07/17 documented as of this encounter Additional Source Comments The information contained in this document represents components of the legal health record. It is not the complete legal health record.[facility]
--- OUTSIDE RECORDS SUMMARY | 2025-04-06 19:05 | XMS_ITS | Encounter Summary ---
Author Organization [facility] Address [address] [place] [address] Phone Care Team Providers Care Production Line Worker Name Role Phone Darin Maldonado MD Primary Care Provider [phone] [phone] Encounter Details Date Type Department Care Team (Late st Contact Info) Description 08/15/2021 Procedure Pass [facility] [place] Pacer Lab 55 [facility], Floor 1, Room [address] [place] [phone] Social History Tobacco Use Types Packs/Day Years [...] [facility] [address] [facility] [address] [place] [address] Lorna Schreiber MD [address] [place] [address] [email or web address] 02/08/2026 8:00 AM EDT Telemedicine - audio only [facility] Cardiac Arrhythmia Service 32 [facility], 5th Floor, [address] [place] [address] Neetu Albarran, ROTARY ADJUSTER [address] [place] [address] [email or web address] documented as of this encounter Visit Diagnoses Not on filedocumented in this encounter Care Teams Production Line Worker Relationship Specialty Start Date End Date Darin Maldonado MD [address] [place] [address] Dr Lemus [address] [place] [address] PCP - General Internal Medicine 11/07/17 documented as of this encounter Additional Source Comments The information contained in this document represents components of the legal health record. It is not the complete legal health record.[facility]
--- OUTSIDE RECORDS SUMMARY | 2025-04-06 19:05 | XMS_ITS | Encounter Summary ---
Author Organization [facility] Address [address] [place] [address] Phone Care Team Providers Care Seo Engineer Name Role Phone Darin Maldonado MD Primary Care Provider [phone] [phone] Encounter Details Date Type Department Care Team (Late st Contact Info) Description 10/09/2020 Procedure Pass [facility] Cardiology Division [address] [facility], [address] [place] [address] Social History Tobacco Use Types Packs/Day Years [...] [facility] [address] [place] [address] Lorna Schreiber MD [address] [place] [address] [email or web address] 02/08/2026 8:00 AM EDT Telemedicine - audio only [facility] Cardiac Arrhythmia Service 32 [facility], 5th Floor, [address] [place] [address] Neetu Albarran, SARAN [address] [place] [address] [email or web address] documented as of this encounter Visit Diagnoses Not on filedocumented in this encounter Care Teams Seo Engineer Relationship Specialty Start Date End Date Darin Maldonado MD [address] [place] [address] Dr Lem[address] [place] [address] PCP - General Internal Medicine 11/07/17 documented as of this encounter Additional Source Comments The information contained in this document represents components of the legal health record. It is not the complete legal health record.[facility]
--- OUTSIDE RECORDS SUMMARY | 2025-04-06 19:05 | XMS_ITS | Encounter Summary ---
Author Organization [facility] Address [address] [place] [address] Phone Care Team Providers Care Lead Front End Developer Name Role Phone Darin Maldonado MD Primary Care Provider [phone] Encounter Details Date Type Department Care Team (Late st Contact Info) Description 05/21/2021 Procedure Pass [facility] 55 [facility], [address] [place] [address] Social History Tobacco Use Types Packs/Day Years [...] 1:15 PM EST Office Visit [facility] [address] [facility] [address] [place] [address] Lorna Schreiber MD [address] [place] [address] [email or web address] 02/08/2026 8:00 AM EDT Telemedicine - audio only [facility]hythmia Service 32 [facility], 5th Floor, [address] [place] [address] Neetu Albarran, SARAN [address] [place] [address] [email or web address] documented as of this encounter Visit Diagnoses Not on filedocumented in this encounter Care Teams Lead Front End Developer Relationship Specialty Start Date End Date Darin Maldonado MD [address] [place] [address] [address] [place] [address] PCP - General Internal Medicine 11/07/17 documented as of this encounter Additional Source Comments The information contained in this document represents components of the legal health record. It is not the complete legal health record.[facility]
--- OUTSIDE RECORDS SUMMARY | 2025-04-06 19:05 | XMS_ITS | Encounter Summary ---
Author Organization [facility] Address [address] [place] [address] Phone Care Team Providers Care University Archivist Name Role Phone Darin Maldonado MD Primary Care Provider +1 -[phone] Encounter Details Date Type Department Care Team (Late st Contact Info) Description 01/05/[address] [facility] Cardiology Division [address] [facility], [address] [place] [address] Social History Tobacco Use Types Packs/Day Years [...] [facility] [address] [facility] [address] [place] [address] Lorna Schreiber MD [address] [place] [address] [email or web address] 02/08/2026 8:00 AM EDT Telemedicine - audio only [facility] Cardiac Arrhythmia Service [address] [facility], 5th Floor, [address] [place] [address] Neetu Albarran, SARAN [address] [place] [address] PAM@[email or web address] documented as of this encounter Visit Diagnoses Not on filedocumented in this encounter Care Teams University Archivist Relationship Specialty Start Date End Date Darin Maldonado MD [address] [place] [address] Dr Lem[address] [place] [address] PCP - General Internal Medicine 11/07/17 documented as of this encounter Additional Source Comments The information contained in this document represents components of the legal health record. It is not the complete legal health record.[facility]
--- OUTSIDE RECORDS SUMMARY | 2025-04-06 19:05 | XMS_ITS | Encounter Summary ---
Author Organization [facility] Address [address] [place] [address] Phone Care Team Providers Care Machine Hoop Maker Name Role Phone Darin Maldonado MD Primary Care Provider +1 [phone] Encounter Details Date Type Department Care Team (Late st Contact Info) Description 05/27/2020 Procedure Pass [facility] Card[facility] [address] [facility], [address] [place] [address] Social History Tobacco Use Types Packs/Day Years [...] 1:15 PM EST Office Visit [facility] Medical Endocrine [address] [facility] [address] [place] [address] Lorna Schreiber MD [address] [place] [address] [email or web address] 02/08/2026 8:00 AM EDT Telemedicine - audio only [facility] Cardiac Arrhythmia Service [address] [facility], 5th Floor, [address] [place] [address] Neetu Albarran, SUPERVISOR SHOW OPERATIONS [address] [place] [address] PAM@[email or web address] documented as of this encounter Visit Diagnoses Not on filedocumented in this encounter Care Teams Machine Hoop Maker Relationship Specialty Start Date End Date Darin Maldonado MD [address] [place] [address] Dr Lemus [address] [place] [address] PCP - General Internal Medicine 11/07/17 documented as of this encounter Additional Source Comments The information contained in this document represents components of the legal health record. It is not the complete legal health record.[facility]
--- OUTSIDE RECORDS SUMMARY | 2025-04-06 19:05 | XMS_ITS | Encounter Summary ---
Author Organization [facility] Address [address] [place] [address] Phone Care Team Providers Care High Pressure Boiler Operator Name Role Phone Darin Maldonado MD Primary Care Provider +1 -[phone] Encounter Details Date Type Department Care Team (Late st Contact Info) Description 12/26/2017 Procedure Pass [facility] [place] [facility] [address] [facility], Floor 1, Room [address] [place] [id number] Social History Tobacco Use Types Packs/Day Years [...] 1:15 PM EST Office Visit [facility] Medical Endocrine [address] [facility] [address] [place] [address] Lorna Schreiber MD [address] [place] [address] [email or web address] 02/08/2026 8:00 AM EDT Telemedicine - audio only [facility]iac [facility]rhythmia Service [address] [facility], 5th Floor, [address] [place] [address] Neetu Albarran, FAMILY AND CONSUMER SCIENCE PROFESSOR [address] [place] [address] PAM@[facility] documented as of this encounter Visit Diagnoses Not on filedocumented in this encounter Care Teams High Pressure Boiler Operator Relationship Specialty Start Date End Date Darin Maldonado MD [address] [place] [address] [place] [address] PCP - General Internal Medicine 11/07/17 documented as of this encounter Additional Source Comments The information contained in this document represents components of the legal health record. It is not the complete legal health record.[facility]
--- OUTSIDE RECORDS SUMMARY | 2025-04-06 19:05 | XMS_ITS | Encounter Summary ---
Author Organization [facility] Address [address] [place] [address] Phone Care Team Providers Care Display Card Writer Name Role Phone Darin Maldonado MD Primary Care Provider [phone] [phone] Encounter Details Date Type Department Care Team (Late Contact Info) Description 01/28/2024 Procedure Pass [facility] [address] [facility], 5th Floor, [address] [place] [address] Social History Tobacco Use Types Packs/Day Years [...] Description 07/26/2025 1:15 PM EST Office Visit [facility] Medical Endocrine [address] [facility] [address] [place] [address] Lorna Schreiber MD [address] [facility]. [address] [place] [address] [email or web address] 02/08/2026 8:00 AM EDT Telemedicine - audio only [facility]iac [facility]hythmia Service [address] [facility], 5th Floor, [address] [place] [address] Neetu Albarran FNP 55 [place] [address] PAM@[email or web address] documented as of this encounter Visit Diagnoses Not on filedocumented in this encounter Care Teams Display Card Writer Relationship Specialty Start Date End Date Darin Maldonado MD [address] [place] [address] Dr Lemus [address] [place] [address] PCP - General Internal Medicine 11/07/17 documented as of this encounter Additional Source Comments The information contained in this document represents components of the legal health record. It is not the complete legal health record.[facility]
--- OUTSIDE RECORDS SUMMARY | 2025-04-06 19:05 | XMS_ITS | Encounter Summary ---
Author Organization [facility] Address [address] [place] [address] Phone Care Team Providers Care Behavioral Scientist Name Role Phone Darin Maldonado MD Primary Care Provider +1 [phone] Encounter Details Date Type Department Care Team (Late st Contact Info) Description 11/22/2020 Procedure Pass [facility] Cardiology Division [address] [facility], [address] [place] [address] Social History Tobacco Use Types Packs/Day Years [...] Visit [facility] Medical Endocrine [address] [place] [address] Lorna Schreiber MD [address] [place] [address] [email or web address] 02/08/2026 8:00 AM EDT Telemedicine - audio only [facility] Cardiac Arrhythmia Service [address] [facility], 5th Floor, [address] [place] [address] Neetu Albarran, SARAN [address] [place] [address] PAM@[facility] documented as of this encounter Visit Diagnoses Not on filedocumented in this encounter Care Teams Behavioral Scientist Relationship Specialty Start Date End Date Darin Maldonado MD [address] [place] [address] Dr Lemus [address] [place] [address] PCP - General Internal Medicine 11/07/17 documented as of this encounter Additional Source Comments The information contained in this document represents components of the legal health record. It is not the complete legal health record.[facility]
== END 2025-04-06 15:44 | disposition home or self-care (01) ==
LOC: HO.LAB 15:43
PROVIDERS: PCP Internal Medicine; Visit Provider Internal Medicine
DX: R39.9 Unspecified symptoms and signs involving the genitourinary system (principal)
CPT/HCPCS: 81001; 87086

== ENCOUNTER 2025-04-08 11:14 | Outpatient (REF) | payer BC, SELFPAY ==
[2025-04-08 11:37] LABS: MANUAL DIFF FLAG NO
[2025-04-08 12:49] LABS: Hematocrit 43.3 % (37.0-47.0); Hemoglobin 13.7 g/dl (12.0-16.0); Imm Gran Abs Auto 0.02 X10*3/uL (0.00-0.03); Imm Gran Pct Auto 0.3 % (0.0-0.4); Lymphocytes Absolute Auto 2.3 X10*3/uL (1.2-4.9); Mean Corpuscular HGB Conc 31.6 g/dl (31.0-35.0); Mean Corpuscular Hemoglobin 28.1 pg (27.0-33.0); Mean Corpuscular Volume 88.7 fL (80.0-98.0); NRBC Abs Auto 0.000 X10*3/uL (0.0-0.012); NRBC Pct Auto 0.0 /100WBC (0.0-0.2); Platelet Count 307 X10*3/uL (160-400); Red Blood Count 4.88 X10*6/uL (4.20-5.50); White Blood Count 6.7 X10*3/uL (4.8-10.8)
--- OUTSIDE RECORDS SUMMARY | 2025-04-08 13:59 | XMS_ITS | Encounter Summary ---
Author Organization [facility] Address [address] [place] [address] Phone Care Team Providers Care Face Boss Name Role Phone Darin Maldonado MD Primary Care Provider +1 -[phone] Encounter Details Date Type Department Care Team (Late st Contact Info) Description 02/04/2018 Ancillary Orders [facility] Cardiology Division [address] [place] [address], [address] [place] [address] Hari Garcia MD, PhD [address] [place] [address] [email or web address] Cardiac arrhythmia, unspecified cardiac arrhythmia type Social [...] Description 07/26/2025 1:15 PM EST Office Visit [facility] Medical Endocrine [address] [facility] [address] [place] [address] Lorna Schreiber MD [address] [facility]. [address] [place] [address] [email or web address] 02/08/2026 8:00 AM EDT Telemedicine - audio only [facility] Cardiac Arrhythmia Service [address] [facility], 5th Floor, [address] [place] [address] Neetu Albarran, COMPUTER HARDWARE ENGINEER 55 [place] [address] PAM@[facility] documented as of this encounter Visit Diagnoses Diagnosis Cardiac arrhythmia, unspecified cardiac arrhythmia type documented in this encounter Care Teams Face Boss Relationship Specialty Start Date End Date Darin Maldonado MD [address] [place] [address] [place] [address] PCP - General Internal Medicine 11/07/17 documented as of this encounter Additional Source Comments The information contained in this document represents components of the legal health record. It is not the complete legal health record.[facility]
--- OUTSIDE RECORDS SUMMARY | 2025-04-08 13:59 | XMS_ITS | Encounter Summary ---
Author Organization [facility] Address [address] [place] [address] Phone Care Team Providers Care Oceanography Professor Name Role Phone Darin Maldonado MD Primary Care Provider [phone] [phone] Encounter Details Date Type Department Care Team (Late st Contact Info) Description 08/23/[address] [facility] Cardiology Division [address] [facility], [address] [place] [address] Social History Tobacco Use Types Packs/Day Years [...] 1:15 PM EST Office Visit [facility] Medical Endocrine [address] [facility] [address] [place] [address] Lorna Schreiber MD [address] [place] [address] [email or web address] 02/08/2026 8:00 AM EDT Telemedicine - audio only [facility] Cardiac Arrhythmia Service [address] [facility], 5th Floor, [address] [place] [address] Neetu Albarran, SARAN [address] [place] [address] PAM@[email or web address] documented as of this encounter Visit Diagnoses Not on filedocumented in this encounter Care Teams Oceanography Professor Relationship Specialty Start Date End Date Darin Maldonado MD [address] [place] [address] Dr Lem[address] [place] [address] PCP - General Internal Medicine 11/07/17 documented as of this encounter Additional Source Comments The information contained in this document represents components of the legal health record. It is not the complete legal health record.[facility]
--- OUTSIDE RECORDS SUMMARY | 2025-04-08 13:59 | XMS_ITS | Encounter Summary ---
Author Organization [facility] Address [address] [place] [address] Phone Care Team Providers Care Machinery Mover Name Role Phone Darin Maldonado MD Primary Care Provider +1 -[phone] Encounter Details Date Type Department Care Team (Late st Contact Info) Description 05/27/2020 Procedure Pass [facility] Cardiology Division [address] [facility], [address] [place] [address] Social History Tobacco Use Types Packs/Day Years [...] 1:15 PM EST Office Visit [facility] Medical Endocrine [address] [facility] [address] [place] [address] Lorna Schreiber MD [address] [place] [address] [email or web address] 02/08/2026 8:00 AM EDT Telemedicine - audio only [facility] Cardiac Arrhythmia Service [address] [facility], 5th Floor, [address] [place] [address] Neetu Albarran, TUBE TESTER 55 [place] [address] PAM@[email or web address] documented as of this encounter Visit Diagnoses Not on filedocumented in this encounter Care Teams Machinery Mover Relationship Specialty Start Date End Date Darin Maldonado MD [address] [place] [address] Dr Lem[address] [place] [address] PCP - General Internal Medicine 11/07/17 documented as of this encounter Additional Source Comments The information contained in this document represents components of the legal health record. It is not the complete legal health record.[facility]
--- OUTSIDE RECORDS SUMMARY | 2025-04-08 13:59 | XMS_ITS | Encounter Summary ---
Author Organization [facility] Address [address] [place] [address] Phone Care Team Providers Care Rn Ostomy Name Role Phone Darin Maldonado MD Primary Care Provider +1 -[phone] Encounter Details Date Type Department Care Team (Late st Contact Info) Description 06/14/2020 Procedure Pass [facility] Cardiology Division [address] [facility], [address] [place] [address] Social History Tobacco Use Types Packs/Day Years [...] Visit [facility] Medical Endocrine [address] [place] [address] Lorna Schreiber MD [address] [place] [address] [email or web address] 02/08/2026 8:00 AM EDT Telemedicine - audio only [facility] Cardiac Arrhythmia Service [address] [facility], 5th Floor, [address] [place] [address] Neetu Albarran, LAWN CARE WORKER [address] [place] [address] PAM@[email or web address] [place] documented as of this encounter Visit Diagnoses Not on filedocumented in this encounter Care Teams Rn Ostomy Relationship Specialty Start Date End Date Darin Maldonado MD [address] [place] [address] Dr Lem[address] [place] [address] PCP - General Internal Medicine 11/07/17 documented as of this encounter Additional Source Comments The information contained in this document represents components of the legal health record. It is not the complete legal health record.[facility]
--- OUTSIDE RECORDS SUMMARY | 2025-04-08 13:59 | XMS_ITS | Encounter Summary ---
Author Organization [facility] Address [address] [place] [address] Phone Care Team Providers Care Behavioral Technician Name Role Phone Darin Maldonado MD Primary Care Provider +1 -[phone] Encounter Details Date Type Department Care Team (Late st Contact Info) Description 05/27/2020 Procedure Pass [facility] Cardiology Division [address] [facility], [address] [place] [address] Social History Tobacco Use Types Packs/Day Years [...] Description 07/26/2025 1:15 PM EST Office Visit [facility] Medical Endocrine [address] [facility] [address] [place] [address] Lorna Schreiber MD [address] [place] [address] [email or web address] 02/08/2026 8:00 AM EDT Telemedicine - audio only [facility] Cardiac Arrhythmia Service [address] [facility], 5th Floor, [address] [place] [address] Neetu Albarran, OCC THERAPIST 55 [place] [address] PAM@[email or web address] documented as of this encounter Visit Diagnoses Not on filedocumented in this encounter Care Teams Behavioral Technician Relationship Specialty Start Date End Date Darin Maldonado MD [address] [place] [address] Dr Lemus [address] [place] [address] PCP - General Internal Medicine 11/07/17 documented as of this encounter Additional Source Comments The information contained in this document represents components of the legal health record. It is not the complete legal health record.[facility]
--- OUTSIDE RECORDS SUMMARY | 2025-04-08 13:59 | XMS_ITS | Encounter Summary ---
Author Organization [facility] Address [address] [place] [address] Phone Care Team Providers Care Stone Crusher Operator Name Role Phone Darin Maldonado MD Primary Care Provider +1 -[phone] Encounter Details Date Type Department Care Team (Late st Contact Info) Description 08/21/2020 Procedure Pass [facility] 6th floor [address] [place] [address] Social History Tobacco Use Types Packs/Day Years [...] 08/21/2020 4:24 PM Candice Singletary RN * [place] Suicide Severity Rating Scale (Screener/Recent Self-Report) Question [...] 07/26/2025 1:15 PM EST Office Visit [facility] Medical Endocrine [address] [place] [address] Lorna Schreiber MD [address] [place] [address] [email or web address] 02/08/2026 8:00 AM EDT Telemedicine - audio only [facility] Cardiac Arrhythmia Service 32 [facility], 5th Floor, [address] [place] [address] Neetu Albarran FNP [address] [place] [address] PAM@[facility] documented as of this encounter Visit Diagnoses Not on filedocumented in this encounter Care Teams Stone Crusher Operator Relationship Specialty Start Date End Date Darin Maldonado MD [address] [place] [address] Dr Lem[address] [place] [address] PCP - General Internal Medicine 11/07/17 documented as of this encounter Additional Source Comments The information contained in this document represents components of the legal health record. It is not the complete legal health record.[facility]
--- OUTSIDE RECORDS SUMMARY | 2025-04-08 13:59 | XMS_ITS | Encounter Summary ---
Author Organization [facility] Address [address] [place] [address] Care Team Providers Care Manager Integrity Name Role Phone Darin Maldonado MD Primary Care Provider Encounter Details Date Type Department Care Team (Latest Contact Info) Description 11/16/2024 Lab Requisition [facility] Lab [address] [place] [address] Krista Astorga MD [address] [phone] Encounter for gynecological examination (general) (routine) without [...] lesion or malignancy 11/16/2024 4:27 PM EDT [facility] General Categorization Negative 11/16/2024 4:27 PM EDT [facility] Other Findings Atrophy 11/16/2024 4:27 PM [facility] Specimen Adequacy Satisfactory for evaluation 11/16/2024 4:27 PM [facility] Pap Methodology Liquid Based Pap Test 11/16/2024 4:27 PM T [facility] Disclaimer The Pap test is a screening test which carries an inherent false negative rate. These test results should be correlated with the patient's clinical findings and history. This Pap test was processed using an automated screening system. Technical cytopathology services provided by [facility], at [address] [place] [id number] (CLIA # [id number]/Aldo Gasca MD, Division Chair.) 11/16/2024 4:27 PM [facility] Console Pap Interpretation Reported 11/16/2024 4:27 PM [facility] Brushing/Spatula Cervix uteri structure / Unknown 11/12/2024 12:00 PM EDT 11/16/2024 7:11 AM EDT us Krista Astorga MD LAB CYTOLOGY ORDERABLES Final Result [facility] [address] [place] [address], documented in this encounter Visit Diagnoses Diagnosis Encounter for gynecological examination (general) (routine) without abnormal findings documented in this encounter Care Teams Manager Integrity Relationship Specialty Start Date End Date Darin Maldonado MD [address] [place] [address] Dr Serr[address] PCP - General Internal Medicine 09/21/18 documented as of this encounter
--- OUTSIDE RECORDS SUMMARY | 2025-04-08 13:59 | XMS_ITS | Encounter Summary ---
Author Organization [facility] Address [address] [place] [address] Phone Care Team Providers Care Crankshaft Balancer Name Role Phone Darin Maldonado MD Primary Care Provider +1 [phone] Encounter Details Date Type Department Care Team (Late st Contact Info) Description 05/28/2021 Procedure Pass [facility] Cardiology Division [address] [facility], [address] [place] [address] Social History Tobacco Use Types Packs/Day Years [...] Visit [facility] Medical Endocrine [address] [facility] [address] [place] [address] Lorna Schreiber MD [address] [place] [address] [email or web address] 02/08/2026 8:00 AM EDT Telemedicine - audio only [facility] Cardiac Arrhythmia Service [address], 5th Floor, [address] [place] [address] Neetu Albarran, SARAN [address] [place] [address] [email or web address] documented as of this encounter Visit Diagnoses Not on filedocumented in this encounter Care Teams Crankshaft Balancer Relationship Specialty Start Date End Date Darin Maldonado MD [address] [place] [address] Dr Lemus [address] [place] [address] PCP - General Internal Medicine 11/07/17 documented as of this encounter Additional Source Comments The information contained in this document represents components of the legal health record. It is not the complete legal health record.[facility]
--- OUTSIDE RECORDS SUMMARY | 2025-04-08 13:59 | XMS_ITS | Encounter Summary ---
Author Organization [facility] Address [address] [place] [address] Phone Care Team Providers Care Commercial Collections Driver Name Role Phone Darin Maldonado MD Primary Care Provider +1 [phone] Encounter Details Date Type Department Care Team (Late st Contact Info) Description 02/04/2018 Procedure Pass [facility] [place] 55 [facility], Floor 1, [address] [place] [phone] Social History Tobacco Use Types Packs/Day Years [...] 1:15 PM EST Office Visit [facility] [address] [facility] [address] [place] [address] Lorna Schreiber MD [address] [place] [address] [email or web address] 02/08/2026 8:00 AM EDT Telemedicine - audio only [facility] [place]iac [facility]hythmia Service [address] [facility], 5th Floor, [address] [place] [address] Neetu Albarran, DAIRY SCIENCE TEACHER [address] [place] [address] [email or web address] documented as of this encounter Visit Diagnoses Not on filedocumented in this encounter Care Teams Commercial Collections Driver Relationship Specialty Start Date End Date Darin Maldonado MD [address] [place] [address] [place] [address] PCP - General Internal Medicine 11/07/17 documented as of this encounter Additional Source Comments The information contained in this document represents components of the legal health record. It is not the complete legal health record.[facility]
--- OUTSIDE RECORDS SUMMARY | 2025-04-08 13:59 | XMS_ITS | Clinical Summary ---
Author Organization [facility] Address [address] [place] [address] Phone Care Team Providers Care Work Order Detailer Name Role Phone Darin Maldonado MD Primary Care Provider Surgical History Surgery Date Site/Laterality Comments BREAST SURGERY PROCEDURE: [place] UNLISTED PROCEDURE BREAST OTHER SURGICAL HISTORY PROCEDURE: [...] year. [facility]amm[facility] location[facility] [address], [address] -------- FINAL REPORT -------- Dictated By: Jaime Joya Dictated Date: 11/01/2024 07:58 ET Assigned Physician: Jaime Joya Reviewed and Electronically Signed By: Jaime Joya Signed Date: 11/01/2024 08:04 ET Workstation ID: [id number] Transcribed By: Self Edit Transcribed Date: 11/01/2024 [...] Computer-aided detection was employed with the [employer] AI 3-D. TISSUE DENSITY: The breasts [...] year. Mammography location: [facility] [address], [address] -------- FINAL REPORT -------- Dictated By: Jaime Joya Dictated Date: 11/01/2024 07:58 ET Assigned Physician: Jaime Joya Reviewed and Electronically Signed By: Jaime Joya Signed Date: 11/01/2024 08:04 ET Workstation ID: [id number] Transcribed By: Self Edit Transcribed Date: 11/01/2024 07:58 ET us Self Referral Sppl IMG BI PROCEDURES Final Resul t from Last 3 Months or Most Recently Relevant to Health Maintenance Insurance [facility] Advance Directives Documents on File Type Date Recorded Patient Air Traffic Instructor Expl anation Health Care Decision (hx) 10/06/2018 AD HANDLEY DIRECTIVE Health Care Decision (hx) 10/06/2018 AD HANDLEY DIRECTIVE Health Care Decision (hx) 10/06/2018 AD HANDLEY DIRECTIVE Care Teams Work Order Detailer Relationship Specialty Start Date End Date Darin Maldonado MD [address] [place] [address] [address] [place], [place] PCP - General Internal Medicine 09/21/18
--- OUTSIDE RECORDS SUMMARY | 2025-04-08 13:59 | XMS_ITS | Encounter Summary ---
Author Organization [facility] Address [address] [place] [address] Phone Care Team Providers Care Mineral Surveyor Name Role Phone Darin Maldonado MD Primary Care Provider [phone] [phone] Encounter Details Date Type Department Care Team (Late st Contact Info) Description 08/15/2021 [place] [facility] [place] 55 [facility], Floor 1, Room [address] [place] [phone] Social History Tobacco Use Types Packs/Day Years [...] [facility] [address] [facility] [address] [place] [address] Lorna Schreiber MD [address] [place] [address] [email or web address] 02/08/2026 8:00 AM EDT Telemedicine - audio only [facility]hythmia Service 32 [facility], 5th Floor, [address] [place] [address] Neetu Albarran, IMAGING SERVICES DIRECTOR [address] [place] [address] [email or web address] documented as of this encounter Visit Diagnoses Not on filedocumented in this encounter Care Teams Mineral Surveyor Relationship Specialty Start Date End Date Darin Maldonado MD [address] [place] [address] Dr Lemus [address] [place] [address] PCP - General Internal Medicine 11/07/17 documented as of this encounter Additional Source Comments The information contained in this document represents components of the legal health record. It is not the complete legal health record.[facility]
--- OUTSIDE RECORDS SUMMARY | 2025-04-08 13:59 | XMS_ITS | Encounter Summary ---
Author Organization [facility] Address [email or web address] [place] [address] Phone Care Team Providers Care Clerical And Office Support Workers Name Role Phone Darin Maldonado MD Primary Care Provider [phone] [phone] Encounter Details Date Type Department Care Team (Late Contact Info) Description 01/28/2024 Procedure Pass [facility] [place] [address] [facility], 5th Floor, [address] [place] [address] Social History Tobacco Use Types Packs/Day Years [...] 1:15 PM EST Office Visit [facility] Endocrine [address] [facility] [address] [place] [address] Lorna Schreiber MD [address] [facility]. [address] [place] [address] [email or web address] 02/08/2026 8:00 AM EDT Telemedicine - audio only [facility] [place]ia Service [address] [facility], 5th Floor, [address] [place] [address] Neetu Albarran FNP [address] [place] [address] [email or web address] documented as of this encounter Visit Diagnoses Not on filedocumented in this encounter Care Teams Clerical And Office Support Workers Relationship Specialty Start Date End Date Darin Maldonado MD [address] [place] [address] Dr Lemus [address] [place] [address] PCP - General Internal Medicine 11/07/17 documented as of this encounter Additional Source Comments The information contained in this document represents components of the legal health record. It is not the complete legal health record.[facility]
--- OUTSIDE RECORDS SUMMARY | 2025-04-08 13:59 | XMS_ITS | Clinical Summary ---
Author Organization [facility] Address [address] [facility] [address] [place] [address] Phone Care Team Providers Care Gamb Cutter Name Role Phone Darin Maldonado MD Primary Care Provider +1 [phone] Allergies Active Allergy Reactions Criticality Noted Date [...] Will have her obtain an ECG at [facility] unless she has symptoms Brugada instructions reviewed Assessment & Plan (01/28/2024 3:25 PM EDT): Episode of dizziness Will obtain monitor and ECG at [facility] and await those results Aggressive treatment [...] Encounters Date Type Department Care Team Description 04/08/2025 Transcribe Orders Virtual Department 30 [place] [address] Kaley Li MD Age-related osteoporosis without current pathological fracture (Primary Dx) 03/31/2025 Telephone [facility] Endocrine [address] [place] [address] Lorna Schreiber MD DEXA Order 01/31/2025 1:00 PM EDT Telemedicine - audio only [facility] [place]ia Service [address] [facility], 5th Floor, [address] [place] [address] Neetu Albarran FNP Brugada syndrome (Primary Dx) 01/21/2025 Telephone [facility] [place] [address] [place] [address] Ciera Miller 01/19/2025 4:58 PM EDT - 01/19/2025 11:59 PM EDT Hospital Encounter [facility] [address] [place] [address] Lorna Schreiber MD Discharge Disposition: Home or Self Care 01/19/2025 3:15 PM EDT Initial consult [facility] [address] [place] [address] Lorna Schreiber MD Age-related osteoporosis without current pathological fracture (Primary Dx) 01/07/2025 10:00 AM EDT - 01/07/2025 11:59 PM EDT Hospital Encounter [facility], X-Ray - [address] [address] Dipak Gannon PA-C Discharge Disposition: Home or [...] Description 07/26/2025 1:15 PM EST Office Visit [facility]ocrine [address] [facility] [address] [place] [address] Lorna Schreiber MD [address] [facility] [place] [address] [email or web address] 02/08/2026 8:00 AM EDT Telemedicine - audio only [facility] [place]ia Service [address] [facility], 5th Floor, [address] [place] [address] Neetu Albarran, [facility] [address] [place] [address] [email or web address] Health Maintenance Due Date Last Done Comments LIPID PANEL 1958 DEPRESSION SCREENING 1970 HEPATITIS C SCREENING 1976 COLOGUARD 09/08/2003 COLONOSCOPY 09/08/2003 COLORECTAL CANCER SCREENING 09/08/2003 FIT TEST 09/08/2003 FOBT 09/08/2003 SIGMOIDOSCOPY 09/08/2003 VIRTUAL COLONOSCOPY 09/08/2003 PNEUMOCOCCAL VACCINES (50+ years) (1 of 1 - PCV) 2008 ZOSTER VACCINES (1 of 2) 2008 INFLUENZA VACCINE (#1) 2025 3, 05/08/2022, 05/16/2021, Additional history exists COVID-19 VACCINE (2024- season) 2025 03/20/2023, 03/16/2022, 05/25/2021, Additional history exists MAMMOGRAM 10/29/2026 10/29/2024, 10/29/2024 Adult Td,Tdap Booster 03/17/2033 03/17/2023 RSV VACCINE (1 - 1-dose 75+ series) 2033 SMOKING STATUS SCREENING (Once After 26 Yrs) Completed 10/25/2024 OSTEOPOROSIS SCREENING INITIAL (ONE-TIME) Completed 04/08/2025 HEPATITIS A VACCINES Aged Out No long [...] this topic Medical Devices Implanted Type Area Compressor Station Operator Device Identifier Shelf Expiration Date Model / Serial / Lot Plug Hip 48 66mm Implant Liner Hole Eliminator Thrded Positive Stop [place] 16b - [id number] Implanted:Qty: 1 on 08/21/2020 by Luis Sharma MD at [facility] Right: Hip [employer] [employer] 06/22/2030 0 / / [id number] Hip Stem 109mm Size 7 Femoral Tri Lock Gripton Bps Cementless Standard Offset - [id number] Implanted:Qty: 1 on 08/21/2020 by Luis Sharma MD at [facility] Right: Hip [employer] 01/20/2030 1011-09-28 0 / / [id number] Pin Orthopedic [id number] Smooth Double Sharp Tip S/S Steinmann Pk/6ea - [id number] Implanted:Qty: 3 on 08/21/2020 by Luis Sharma MD at [facility] STANDARD Right: Hip [employer] 1636-109 / / Acetabular Liner [id number] Plus 4 10deg Plstc Implant 10 - [id number] Implanted:Qty: 1 on 08/21/2020 by Luis Sharma MD at [facility] STANDARD Right: Hip [facility] 04/22/2025 4 / / [id number] Femoral Shell Cup 54mm Acetabular Latonia Porocoat - [id number] Implanted:Qty: 1 on 08/21/2020 by Luis Sharma MD at [facility] STANDARD Right: Hip [facility] [employer] 05/22/2030 1216-06-27 4 / / [id number] Hip 36mm 5.0 Articul/Tu Rom Metal Biolox Delta 05/05 Tapered Plus - [id number] Implanted:Qty: 1 on 08/21/2020 by Luis Sharma MD at [facility] STANDARD Right: Hip [facility] 06/22/2025 0 / / [id number] Explanted Type Area Compressor Station Operator Device Identifier Shelf Expiration Date Model / Serial / Lot Reveal Linq Loop Recorder System - [id number] Implanted:Qty: 1 on 02/04/2018 by Richard Sheridan MD at [facility] Explanted:Qty: 1 on 08/15/2021 by Jeremy Washington MD, MPH at [facility] Implantable Monitor [employer] 09/17/2018 [id number] / [id number] / Procedures Procedure Name Priority Date/Time Associated Diagnosis Comments BD DXA MONITORING Routine 04/08/2025 12: 31 PM EDT Age-related osteoporosis without current pathological fracture OUTSIDE LAB 01/27/2025 25-OH VITAMIN D Routine [...] 43 20 - 50 ng/mL [facility] Comment: This assay may underestimate total Vitamin D concentrations in patients receiving 50,000 IU of Vitamin D2. Blood 01/19/2025 5:00 PM EDT 01/19/2025 5:02 PM EDT us Lorna Schreiber MD LAB BLOOD ORDERABLES Final R esult [facility], [address] [phone] * (ABNORMAL) Basic metabolic panel (01/19/2025 5:00 PM EDT) [facility] SODIUM 139 136 - 145 mmol/L [facility] Comment: POTASSIUM 4.6 3.4 - 5.1 mmol/L [facility] Comment: CHLORIDE 102 98 - 107 mmol/L [facility] Comment: CO2 29 22 - 31 mmol/L [facility] Comment: BUN 13 6 - 23 mg/dL [facility] Comment: CREATININE 0.87 0.50 - 1.20 mg/dL [facility] GLUCOSE 101(H) 70 - 100 mg/dL [facility] Comment: CALCIUM 9.4 8.8 - 10.7 mg/dL [facility] Comment: EGFR 73 >59 mL/min/1.7 3m2 [facility] Comment: Estimated glomerular filtration rate calculated using the CKD-EPI refit equation. ANION GAP 8 7 - 17 mmol/L [facility] [facility] Comment: Blood 01/19/2025 5:0 0 PM EDT 01/19/2025 5:02 PM EDT us Lorna Schreiber MD LAB BLOOD ORDERABLES Final R esult [facility]-[address] [place] [address] * Outside Imaging Report Only (01/12/2025) us [...] clinician's provided indication for this examination in [facility]: Pain COMPARISON: XR HIPS 2+ VW EA BILAT PLUS PELVIS Procedure Note Hoang Guy MD - 01/08/2025 XR HIPS 2+ VW EA BILAT PLUS PELVIS Referring clinician's provided indication for this examination in Epic:Pain COMPARISON: XR HIPS 2+ VW EA BILAT [...] nal Result from Last 3 Months Insurance [facility] PPO EPO [facility] PPO EPO [place] [facility] PPO EPO [place] [facility] PPO EPO [place] [facility] PPO EPO [place] [facility] PPO EPO [place] [facility] [place]PO [place] [facility] PPO EPO [place] [facility] PPO EPO Advance Directives For more information, please contact: [phone] (9AM - 5PM [place], Friday-Friday) * Full Code (Latest Code Status on File) Date Activated Date Inactivated Comments 08/21/2020 5:32 PM Question Answer Comments Code Status Confirmed With: Patient Code Status Communicated To: Other (specify diamond w) Code Discussion Comments: DOMESTIC LAUNDRY WORKER Care Teams Gamb Cutter Relationship Specialty Start Date End Date Darin Maldonado MD [address] [place] [address] [place] [address] PCP - General Internal Medicine 11/07/17 Additional Source Comments The information contained in this document represents components of the legal health record. It is not the complete legal health record.[facility]
--- OUTSIDE RECORDS SUMMARY | 2025-04-08 14:00 | XMS_ITS | Encounter Summary ---
Author Organization [facility] Address [address] [place] [address] Phone Care Team Providers Care Product Merchandiser Name Role Phone Darin Maldonado MD Primary Care Provider [phone] [phone] Reason for Visit * Reason Onset Date Comments DEXA Order 03/31/2025 Encounter Details Date Type Department Care Team (Late st Contact Info) Description 03/31/2025 Telephone [facility] Medical Endocrine [address] [facility] [address] [place] [address] Lorna Schreiber MD [address] [facility] [address] [place] [address] [email or web address] DEXA Order Social History Tobacco Use Types Packs/Day Years [...] as of this encounter Progress Notes * Kaley Li MD - 04/08/2025 12:31 PM EDTAddended by: KALEY LI M.D. on: 04/08/2025 12:31 PM Modules accepted: Orders * Aisha Jackson RN - 03/31/2025 3:18 PM EDT Pt asking for dexa order to be placed. Per AL note 03/22 Plan: 1. If it is confirmed that after 5 years of Alendronate your bone density WORSENED then I would advise switching to Prolia 2. We will also repeat another BMD in the next 6 months as a baseline study beforer starting Prolia. * Angel Abdul - 03/31/2025 3:13 PM EDT AL Pt was seen on 01/[address] was supposed to place an order for a DEXA. Pt goes to [facility] for this. She is asking for this to be placed and marked as Urgent so she can get an appt in the near future. Any questions pls call pt documented in this encounter Plan of Treatment Upcoming Encounters Date Type Department Care Team (Late st Contact Info) Description 07/26/2025 1:15 PM EST Office Visit [facility] Medical Endocrine [address] [facility] [address] [place] [address] Lorna Schreiber MD [address] [facility] [address] [place] [address] [email or web address] 02/08/2026 8:00 AM EDT Telemedicine - audio only [facility] [place] [place] [address] [facility], 5th Floor, [address] [place] [address] Neetu Albarran FNP [address] [place] [address] [email or web address] documented as of this encounter Procedures Procedure Name Priority Date/Time Associated Diagnosis Comments BD DXA MONITORING Routine 04/08/2025 12:31 PM EDT Age-related osteoporosis without current pathological fracture documented in this encounter Visit Diagnoses Diagnosis Age-related osteoporosis without current pathological fracture- Primary documented in this encounter Care Teams Product Merchandiser Relationship Specialty Start Date End Date Darin Maldonado MD [address] [place] [address] Dr Lemus [address] [place] [address] PCP - General Internal Medicine 11/07/17 documented as of this encounter Additional Source Comments The information contained in this document represents components of the legal health record. It is not the complete legal health record.[facility]
--- OUTSIDE RECORDS SUMMARY | 2025-04-08 14:00 | XMS_ITS | Encounter Summary ---
Author Organization [facility] Address [address] [place] [address] Phone Care Team Providers Care Locum Tenens Name Role Phone Darin Maldonado MD Primary Care Provider [phone] [phone] Encounter Details Date Type Department Care Team (Late st Contact Info) Description 02/19/2021 Procedure Pass [facility] [place] [place] [address] [facility], [address] [place] [address] Social History Tobacco Use Types Packs/Day Years [...] Description 07/26/2025 1:15 PM EST Office Visit [facility] Medical Endocrine [address] [facility] [address] [place] [address] Lorna Schreiber MD [address] [place] [address] [email or web address] 02/08/2026 8:00 AM EDT Telemedicine - audio only [facility] [place]iac [place]hythmia Service [address] [facility], 5th Floor, [address] [place] [address] Neetu Albarran, SARAN [address] [place] [address] [email or web address] documented as of this encounter Visit Diagnoses Not on filedocumented in this encounter Care Teams Locum Tenens Relationship Specialty Start Date End Date Darin Maldonado MD [address] [place] [address] Dr Lemus [address] [place] [address] PCP - General Internal Medicine 11/07/17 documented as of this encounter Additional Source Comments The information contained in this document represents components of the legal health record. It is not the complete legal health record.[facility]
--- OUTSIDE RECORDS SUMMARY | 2025-04-08 14:00 | XMS_ITS | Encounter Summary ---
Author Organization [facility] Address [address] [place] [address] Phone Care Team Providers Care Edge [place] Name Role Phone Darin Maldonado MD Primary Care Provider [phone] [phone] Encounter Details Date Type Department Care Team (Late st Contact Info) Description 07/11/2021 Procedure Pass [facility] [place] Pacer Lab 55 [facility], Floor 1, [address] [place] [phone] Social History Tobacco Use Types Packs/Day Years [...] 1:15 PM EST Office Visit [facility] Medical Endocrine [address] [facility] [address] [place] [address] Lorna Schreiber MD [address] [place] [address] [email or web address] 02/08/2026 8:00 AM EDT Telemedicine - audio only [facility] [place]ia Service [address] [facility], 5th Floor, [address] [place] [address] Neetu Albarran, WRAPPER STRIPPER [address] [place] [address] [email or web address] documented as of this encounter Visit Diagnoses Not on filedocumented in this encounter Care Teams Edge [place] Relationship Specialty Start Date End Date Darin Maldonado MD [address] [place] [address] Dr Lemus [address] [place] [address] PCP - General Internal Medicine 11/07/17 documented as of this encounter Additional Source Comments The information contained in this document represents components of the legal health record. It is not the complete legal health record.[facility]
--- OUTSIDE RECORDS SUMMARY | 2025-04-08 14:00 | XMS_ITS | Encounter Summary ---
Author Organization [facility] Address [address] [place] [address] Phone Care Team Providers Care Molding Technician Name Role Phone Darin Maldonado MD Primary Care Provider +1 [phone] Encounter Details Date Type Department Care Team (Late st Contact Info) Description 01/05/2021 Procedure Pass [facility] Cardiology Division [address] [facility], [address] [place] [address] Social History Tobacco Use Types Packs/Day Years [...] Description 07/26/2025 1:15 PM EST Office Visit [facility] Medical Endocrine [address] [facility] [address] [place] [address] Lorna Schreiber MD [address] [place] [address] [email or web address] 02/08/2026 8:00 AM EDT Telemedicine - audio only [facility] Cardiac Arrhythmia Service [address] [facility], 5th Floor, [address] [place] [address] Neetu Albarran, SARAN [address] [place] [address] [email or web address] documented as of this encounter Visit Diagnoses Not on filedocumented in this encounter Care Teams Molding Technician Relationship Specialty Start Date End Date Darin Maldonado MD [address] [place] [address] Dr Lemus [address] [place] [address] PCP - General Internal Medicine 11/07/17 documented as of this encounter Additional Source Comments The information contained in this document represents components of the legal health record. It is not the complete legal health record.[facility]
--- OUTSIDE RECORDS SUMMARY | 2025-04-08 14:00 | XMS_ITS | Encounter Summary ---
Author Organization [facility] Address [address] [place] [address] Phone Care Team Providers Care U.S. Revenue Officer Name Role Phone Darin Maldonado MD Primary Care Provider +1 [phone] Encounter Details Date Type Department Care Team (Late st Contact Info) Description 04/05/2021 Procedure Pass [facility] [place] Division [address] [facility], [address] [place] [address] Social History Tobacco Use Types Packs/Day Years [...] Office Visit [facility] Medical Endocrine [address] [facility] [address] [place] [address] Lorna Schreiber MD [address] [place] [address] [email or web address] 02/08/2026 8:00 AM EDT Telemedicine - audio only [facility] Cardiac Arrhythmia Service [address] [facility], 5th [address], [address] [place] [address] Neetu Albarran, SARAN [address] [place] [address] PAM@[email or web address] documented as of this encounter Visit Diagnoses Not on filedocumented in this encounter Care Teams U.S. Revenue Officer Relationship Specialty Start Date End Date Darin Maldonado MD [address] [place] [address] Dr Lemus [address] [place] [address] PCP - General Internal Medicine 11/07/17 documented as of this encounter Additional Source Comments The information contained in this document represents components of the legal health record. It is not the complete legal health record.[facility]
--- OUTSIDE RECORDS SUMMARY | 2025-04-08 14:00 | XMS_ITS | Encounter Summary ---
Author Organization [facility] Address [address] [place] [address] Phone Care Team Providers Care Bundler Name Role Phone Darin Maldonado MD Primary Care Provider [phone] [phone] Encounter Details Date Type Department Care Team (Latest Contact Info) Description 04/08/2025 Transcribe Orders Virtual Department [address] [place] [address] Kaley Li MD [address] [facility] [address] [place] [address] [email or web address] Age-related osteoporosis without current pathological fracture (Primary Dx) Social History Tobacco Use Types Packs/Day Years [...] Visit [facility] Medical Endocrine [address] [place] [address] Lorna Schreiber MD [address] [place] [address] [email or web address] 02/08/2026 8:00 AM EDT Telemedicine - audio only [facility] Cardiac Arrhythmia Service [address], 5th [address], [address] [place] [address] Neetu Albarran FNP [address] [place] [address] PAM@[email or web address] Scheduled Orders Name Type Priority Associated Diagnoses Orde r Schedule DXA Monitoring Imaging Routine Age-related osteoporosis without current pathological fracture Expected: 05/08/2025, Expires: 04/08/2026 documented as of this encounter Visit Diagnoses Diagnosis Age-related osteoporosis without current pathological fracture- Primary documented in this encounter Care Teams Bundler Relationship Specialty Start Date End Date Darin Maldonado MD [address] [place] [address] [place] [address] PCP - General Internal Medicine 11/07/17 documented as of this encounter Additional Source Comments The information contained in this document represents components of the legal health record. It is not the complete legal health record.[facility]
--- OUTSIDE RECORDS SUMMARY | 2025-04-08 14:00 | XMS_ITS | Encounter Summary ---
Author Organization [facility] Address [address] [place] [address] Phone Care Team Providers Care Acute Care Physician Name Role Phone Darin Maldonado MD Primary Care Provider [phone] [phone] Encounter Details Date Type Department Care Team (Late st Contact Info) Description 05/21/2021 Procedure Pass [facility] Cardiology Division [address] [facility], [address] [place] [address] Social History Tobacco Use Types Packs/Day Years [...] Description 07/26/2025 1:15 PM EST Office Visit [facility] Medical Endocrine [address] [facility] [address] [place] [address] Lorna Schreiber MD [address] [place] [address] [email or web address] 02/08/2026 8:00 AM EDT Telemedicine - audio only [facility] Cardiac Arrhythmia Service [address] [facility], 5th Floor, [address] [place] [address] Neetu Albarran, SARAN [address] [place] [address] PAM@[email or web address] documented as of this encounter Visit Diagnoses Not on filedocumented in this encounter Care Teams Acute Care Physician Relationship Specialty Start Date End Date Darin Maldonado MD [address] [place] [address] Dr Lemus [address] [place] [address] PCP - General Internal Medicine 11/07/17 documented as of this encounter Additional Source Comments The information contained in this document represents components of the legal health record. It is not the complete legal health record.[facility]
--- OUTSIDE RECORDS SUMMARY | 2025-04-08 14:00 | XMS_ITS | Encounter Summary ---
Author Organization [facility] Address [address] [place] [address] Phone Care Team Providers Care Sports Recruiter Name Role Phone Darin Maldonado MD Primary Care Provider [phone] [phone] Encounter Details Date Type Department Care Team (Late st Contact Info) Description 12/26/2017 Procedure Pass [facility] EP Pacer Lab [address] [facility], Floor 1, [address] [place] [phone] Social History Tobacco Use Types Packs/Day Years [...] Description 07/26/2025 1:15 PM EST Office Visit [facility] Medical Endocrine [address] [facility] [address] [place] [address] Lorna Schreiber MD [address] [place] [address] [email or web address] 02/08/2026 8:00 AM EDT Telemedicine - audio only [facility] Cardiac Arrhythmia Service [address] [facility], 5th Floor, [address] [place] [address] Neetu Albarran, CHIEF TELEPHONE OPERATOR [address] [place] [address] PAM@[email or web address] documented as of this encounter Visit Diagnoses Not on filedocumented in this encounter Care Teams Sports Recruiter Relationship Specialty Start Date End Date Darin Maldonado MD [address] [place] [address] [place] [address] PCP - General Internal Medicine 11/07/17 documented as of this encounter Additional Source Comments The information contained in this document represents components of the legal health record. It is not the complete legal health record.[facility]
--- OUTSIDE RECORDS SUMMARY | 2025-04-08 14:00 | XMS_ITS | Encounter Summary ---
Author Organization [facility] Address [address] [place] [address] Phone Care Team Providers Care Lead Technical Architect Name Role Phone Darin Maldonado MD Primary Care Provider [phone] [phone] Encounter Details Date Type Department Care Team (Late st Contact Info) Description 10/09/2020 Procedure Pass [facility] Cardiology Division [address] [facility], [address] [place] [address] Social History Tobacco Use Types Packs/Day Years [...] Description 07/26/2025 1:15 PM EST Office Visit [facility] Medical Endocrine [address] [facility] [address] [place] [address] Lorna Schreiber MD [address] [place] [address] [email or web address] 02/08/2026 8:00 AM EDT Telemedicine - audio only [facility] Cardiac Arrhythmia Service [address] [facility], 5th Floor, [address] [place] [address] Neetu Albarran, SARAN [address] [place] [address] [email or web address] [place] [place] documented as of this encounter Visit Diagnoses Not on filedocumented in this encounter Care Teams Lead Technical Architect Relationship Specialty Start Date End Date Darin Maldonado MD [address] [place] [address] Dr Lemus [address] [place] [address] PCP - General Internal Medicine 11/07/17 documented as of this encounter Additional Source Comments The information contained in this document represents components of the legal health record. It is not the complete legal health record.[facility]
--- OUTSIDE RECORDS SUMMARY | 2025-04-08 14:00 | XMS_ITS | Encounter Summary ---
Author Organization [facility] Address [address] [place] [address] Phone Care Team Providers Care Assistant Professor Of History Name Role Phone Darin Maldonado MD Primary Care Provider [phone] [phone] Encounter Details Date Type Department Care Team (Late st Contact Info) Description 11/22/2020 Procedure Pass [facility] Cardiology Division [address] [facility], [address] [place] [address] Social History Tobacco Use Types Packs/Day Years [...] Description 07/26/2025 1:15 PM EST Office Visit [facility] Medical Endocrine [address] [facility] [address] [place] [address] Lorna Schreiber MD [address] [place] [address] [email or web address] 02/08/2026 8:00 AM EDT Telemedicine - audio only [facility] Cardiac Arrhythmia Service [address] [facility], 5th Floor, [address] [place] [address] Neetu Albarran, SARAN [address] [place] [address] PAM@[email or web address] documented as of this encounter Visit Diagnoses Not on filedocumented in this encounter Care Teams Assistant Professor Of History Relationship Specialty Start Date End Date Darin Maldonado MD [address] [place] [address] Dr Lemus [address] [place] [address] PCP - General Internal Medicine 11/07/17 documented as of this encounter Additional Source Comments The information contained in this document represents components of the legal health record. It is not the complete legal health record.[facility]
[2025-04-08 14:03] LABS: Alanine Aminotransferase 27 U/L (0-31); Albumin Level 4.7 g/dL (3.5-5.0); Alkaline Phosphatase 76 U/L (39-117); Anion Gap 14 (12-20); Aspartate Amino Transferase 33 U/L (5-31); Blood Urea Nitrogen 15 mg/dL (9-16); Calcium 9.3 mg/dL (8.4-10.2); Carbon Dioxide 23 mmol/L (22-29); Chloride 105 mmol/L (96-108); Cholesterol 194 mg/dL (<200); Estimated Glomerular Filt Rate > 60; HDL Cholesterol 100 mg/dL (>40); Potassium 4.4 mmol/L (3.3-5.1); Sodium 138 mmol/L (135-145); Total Protein 7.7 g/dL (6.5-8.0); Triglycerides 44 mg/dL (<150)
== END 2025-04-08 11:15 | disposition home or self-care (01) ==
LOC: HO.LAB 11:14
PROVIDERS: PCP Internal Medicine
DX: Z00.00 Encounter for general adult medical examination without abnormal findings (principal); Z13.6 Encounter for screening for cardiovascular disorders; I49.8 Other specified cardiac arrhythmias; M19.91 Primary osteoarthritis, unspecified site; G47.00 Insomnia, unspecified; M81.0 Age-related osteoporosis without current pathological fracture; H93.19 Tinnitus, unspecified ear; F41.9 Anxiety disorder, unspecified; R42 Dizziness and giddiness
CPT/HCPCS: 36415; 80053; 80061; 82306; 84443; 85025

== ENCOUNTER 2025-04-23 08:00 | Outpatient (REF) | payer BC, SELFPAY ==
--- OUTSIDE RECORDS SUMMARY | 2025-04-23 11:48 | XMS_ITS | Encounter Summary ---
Author Organization [facility] Address [address] [place] [address] Care Team Providers Care Operations And Maintenance Technician Name Role Phone Darin Maldonado MD Primary Care Provider Encounter Details Date Type Department Care Team (Latest Contact Info) Description 11/16/2024 Lab Requisition [facility] - Main Lab [address] [place] [address] Krista Astorga MD [address] [id number] Encounter for gynecological examination (general) (routine) without [...] or malignancy 11/16/2024 4:27 PM EDT [facility] General Categorization Negative 11/16/2024 4:27 PM EDT [facility] Other Findings Atrophy 11/16/2024 4:27 PM [facility] Specimen Adequacy Satisfactory for evaluation 11/16/2024 4:27 PM [facility] Pap Methodology Liquid Based Pap Test 11/16/2024 4:27 PM T [facility] Disclaimer The Pap test is a screening test which carries an inherent false negative rate. These test results should be correlated with the patient's clinical findings and history. This Pap test was processed using an automated screening system. Technical cytopathology services provided by [facility], at [address] [place] [address] (CLIA # [id number]/Aldo Gasca MD, Mlt.) 11/16/2024 4:27 PM [facility] Console Pap Interpretation Reported 11/16/2024 4:27 PM [facility] Brushing/Spatula Cervix uteri structure / Unknown 11/12/2024 12:00 PM EDT 11/16/2024 7:11 AM EDT us Krista Astorga MD LAB CYTOLOGY ORDERABLES Final Result [facility] [address] [place] [address], documented in this encounter Visit Diagnoses Diagnosis Encounter for gynecological examination (general) (routine) without abnormal findings documented in this encounter Care Teams Operations And Maintenance Technician Relationship Specialty Start Date End Date Darin Maldonado MD [address] [place] [address] Dr Serrano [address] PCP - General Internal Medicine 09/21/18 documented as of this encounter
--- OUTSIDE RECORDS SUMMARY | 2025-04-23 11:49 | XMS_ITS | Clinical Summary ---
Author Organization [facility] Address [address] [facility] [facility] [address] [place] [address] Phone Care Team Providers Care Ramp Flight Attendant Name Role Phone Darin Maldonado MD Primary Care Provider +1 [phone] Allergies Active Allergy Reactions Criticality Noted Date [...] Will have her obtain an ECG at [facility] unless she has symptoms Brugada instructions reviewed Assessment & Plan (01/28/2024 3:25 PM EDT): Episode of dizziness Will obtain monitor and ECG at [facility] and await those results Aggressive treatment [...] Description 04/08/2025 Transcribe Orders Virtual Department [address] [place] [address] Kaley Li MD Age-related osteoporosis without current pathological fracture (Primary Dx) 03/31/2025 Telephone [facility] Medical Endocrine [address] [place] [address] Lorna Schreiber MD DEXA Order 01/31/2025 1:00 PM EDT Telemedicine - audio only [facility] Cardiac Arrhythmia Service [address] [facility], 5th Floor, [address] [place] [address] Neetu Ablarran FNP Brugada syndrome (Primary Dx) 01/21/[address] [facility] Internal Medicine - [place] [address] [facility] [address] [place] [address] Ciera Miller from Last 3 Months Family History Medical [...] Description 07/26/2025 1:15 PM EST Office Visit [facility] Endocrine [address] [facility] [address] [place] [address] Lorna Schreiber MD [address] [facility] [address] [place] [address] [email or web address] 09/27/2025 7:00 PM EDT Appointment [facility], Bone Density - [address] [address] Kaley Li MD [address] [place] [address] [email or web address] 02/08/2026 8:00 AM EDT Telemedicine - audio only [facility] Cardiac Arrhythmia Service [address] [facility], 5th Floor, [address] [place] [address] Neetu Albarran, REHABILITATION COUNSELLOR [address] [place] [address] PAM@[email or web address] Health Maintenance Due Date Last Done Comments LIPID PANEL 1958 DEPRESSION SCREENING 1970 HEPATITIS C SCREENING 1976 COLOGUARD 09/08/2003 COLONOSCOPY 09/08/2003 COLORECTAL CANCER SCREENING 09/08/2003 FIT TEST 09/08/2003 FOBT 09/08/2003 SIGMOIDOSCOPY 09/08/2003 VIRTUAL COLONOSCOPY 09/08/2003 PNEUMOCOCCAL VACCINES (50+ years) (1 of 1 - PCV) 2008 ZOSTER VACCINES (1 of 2) 2008 INFLUENZA VACCINE (#1) 2025 , 05/08/2022, 05/16/2021, Additional history exists COVID-19 VACCINE ( - 2024- season) 2025 03/20/2023, 03/16/2022, 05/25/2021, Additional history [...] this topic Medical Devices Implanted Type Area Division Sergeant Device Identifier Shelf Expiration Date Model / Serial / Lot Plug Hip 48 66mm Implant Liner Hole Eliminator Thrded Positive Stop [place] 16b - [id number] Implanted:Qty: 1 on 08/21/2020 by Luis Sharma MD at [facility] Right: Hip [employer] [facility] [employer] 06/22/2030 0 / / [id number] Hip Stem 109mm Size 7 Femoral Tri Lock Gripton Bps Cementless Standard Offset - [id number] Implanted:Qty: 1 on 08/21/2020 by Luis Sharma MD at [facility] Right: Hip [facility] [facility] [employer] 01/20/2030 1011-09-28 0 / / [id number] Pin Orthopedic [id number] Smooth Double Sharp Tip S/S Sherri Pk/6ea - [id number] Implanted:Qty: 3 on 08/21/2020 by Luis Sharma MD at [facility] STANDARD Right: Hip [employer] 1636-109 / / Acetabular Liner [id number] Plus 4 10deg Plstc Implant 10 - [id number] Implanted:Qty: 1 on 08/21/2020 by Luis Sharma MD at [facility] STANDARD Right: Hip [facility] [facility] [employer] 04/22/2025 4 / / [id number] Femoral Shell Cup 54mm Acetabular [place] [employer] - [id number] Implanted:Qty: 1 on 08/21/2020 by Luis Sharma MD at [facility] STANDARD Right: Hip [employer] 05/22/2030 1216-06-27 4 / / [id number] Hip 36mm 5.0 Articul/Tu Rom Metal Biolox Delta 05/05 Tapered Plus - [id number] Implanted:Qty: 1 on 08/21/2020 by Luis Sharma MD at [facility] STANDARD Right: Hip [employer] 06/22/2025 0 / / [id number] Explanted Type Area Division Sergeant Device Identifier Shelf Expiration Date Model / Serial / Lot Reveal Linq Loop Recorder System - [id number] Implanted:Qty: 1 on 02/04/2018 by Richard Sheridan MD at [facility] Explanted:Qty: 1 on 08/15/2021 by Jeremy Washington MD, MPH at [facility] Implantable Monitor [employer] 09/17/2018 [id number] / [id number] / Procedures Procedure Name Priority Date/Time Associated Diagnosis Comments BD DXA MONITORING Routine 04/08/2025 12:31 PM EDT Age-related osteoporosis without current pathological fracture OUTSIDE LAB 01/27/2025 from Last 3 Months Results * Outside Lab (01/27/2025) us Scanning Interface Provider LAB BLOOD ORDERABLES Final Result from Last [address] [place] [address] [address] PPO EPO SUE [place] [facility] PPO EPO [place] [facility] [place]PO EPO [place] [facility] PPO EPO [facility] PPO EPO [place] [facility] PPO EPO [facility] PPO EPO [facility] [place] [address] [facility] PPO EPO Advance Directives For more information, please contact: [phone] (9AM - 5PM [facility]irstie/[facility], Friday-Friday) * Full Code (Latest Code Status on File) Date Activated Date Inactivated Comments 08/21/2020 5:32 PM Question Answer Comments Code Status Confirmed With: Patient Code Status Communicated To: Other (specify belo w) Code Discussion Comments: ALMOND BLANCHER Care Teams Ramp Flight Attendant Relationship Specialty Start Date End Date Darin Maldonado MD [address] [place] [address] [place] [address] PCP - General Internal Medicine 11/07/17 Additional Source Comments The information contained in this document represents components of the legal health record. It is not the complete legal health record.[facility]
--- OUTSIDE RECORDS SUMMARY | 2025-04-23 11:49 | XMS_ITS | Encounter Summary ---
Author Organization [facility] Address [address] [place] [address] Phone Care Team Providers Care Pizza Driver Name Role Phone Darin Maldonado MD Primary Care Provider +1 -[phone] Encounter Details Date Type Department Care Team (Late st Contact Info) Description 05/27/2020 Procedure Pass [facility] Cardiology Division [address] [facility], [address] [place] [address] Social History Tobacco Use Types Packs/Day Years [...] Description 07/26/2025 1:15 PM EST Office Visit [facility] Medical Endocrine [address] [facility] [address] [place] [address] Lorna Schreiber MD [address] [facility] [address] [place] [address] [email or web address] 09/27/2025 7:00 PM EDT Appointment [facility], Bone Density - [address] [address] Kaley Li MD [address] [place] [address] [place] [address] [email or web address] 02/08/2026 8:00 AM EDT Telemedicine - audio only [facility] Cardiac Arrhythmia Service [address] [facility], 5th Floor, [address] [place] [address] Neetu Albarran FNP [address] [place] [address] PAM@[email or web address] documented as of this encounter Visit Diagnoses Not on filedocumented in this encounter Care Teams Pizza Driver Relationship Specialty Start Date End Date Darin Maldonado MD [address] [place] [address] Dr Lemus [address] [place] [address] PCP - General Internal Medicine 11/07/17 documented as of this encounter Additional Source Comments The information contained in this document represents components of the legal health record. It is not the complete legal health record.[facility]
--- OUTSIDE RECORDS SUMMARY | 2025-04-23 11:49 | XMS_ITS | Encounter Summary ---
Author Organization [facility] Address [address] [place] [address] Phone Care Team Providers Care Community Relations Manager Name Role Phone Darin Maldonado MD Primary Care Provider +1 [phone] Encounter Details Date Type Department Care Team (Late st Contact Info) Description 08/15/2021 Procedure Pass [facility] [place] [facility] 55 [facility], Floor 1, Room 110 [place] [id number] Social History Tobacco Use Types Packs/Day Years [...] Office Visit [facility] Medical Endocrine 541 [facility] 210 [place] [address] Lorna Schreiber MD 541 [facility] 210 [place] [address] [email or web address] 09/27/2025 7:00 PM EDT Appointment [facility], Bone Density - [address] [address] Kaley Li MD 541 [facility] [address] [place] [address] [email or web address] 02/08/2026 8:00 AM EDT Telemedicine - audio only [facility] Cardiac Arrhythmia Service 32 [facility], 5th Floor, [address] [place] [address] Neetu Albarran, CHUMMER 55 [place] [address] PAM@[facility] documented as of this encounter Visit Diagnoses Not on filedocumented in this encounter Care Teams Community Relations Manager Relationship Specialty Start Date End Date Darin Maldonado MD [address] [place] [address] [place] [address] PCP - General Internal Medicine 11/07/17 documented as of this encounter Additional Source Comments The information contained in this document represents components of the legal health record. It is not the complete legal health record.[facility]
--- OUTSIDE RECORDS SUMMARY | 2025-04-23 11:49 | XMS_ITS | Encounter Summary ---
Author Organization [facility] Address [address] [place] [address] Phone Care Team Providers Care Food Mobile Driver Name Role Phone Darin Maldonado MD Primary Care Provider +1 [phone] Encounter Details Date Type Department Care Team (Late st Contact Info) Description 06/14/2020 Procedure Pass [facility] 55 [facility], [address] [place] [address] Social History Tobacco Use Types Packs/Day Years [...] Description 07/26/2025 1:15 PM EST Office Visit [facility] Medical Endocrine 541 [facility] 210 [place] [address] Lorna Schreiber MD 541 [facility]. [facility] 210 [place] [address] [email or web address] 09/27/2025 7:00 PM EDT Appointment [facility], Bone Density - [address] [address] Kaley Li MD [address] [place] [address] [email or web address] 02/08/2026 8:00 AM EDT Telemedicine - audio only [facility]ia Service 32 [facility], 5th Floor, [address] [place] [address] Neetu Albarran FNP 55 [place] [address] PAM@[email or web address] documented as of this encounter Visit Diagnoses Not on filedocumented in this encounter Care Teams Food Mobile Driver Relationship Specialty Start Date End Date Darin Maldonado MD [address] [place] [address] Dr Lemus [address] [place] [address] PCP - General Internal Medicine 11/07/17 documented as of this encounter Additional Source Comments The information contained in this document represents components of the legal health record. It is not the complete legal health record.[facility]
--- OUTSIDE RECORDS SUMMARY | 2025-04-23 11:49 | XMS_ITS | Encounter Summary ---
Author Organization [facility] Address [address] [place] [address] Phone Care Team Providers Care Sanitation Manager Name Role Phone Darin Maldonado MD Primary Care Provider +1 [phone] Encounter Details Date Type Department Care Team (Late st Contact Info) Description 05/27/2020 Procedure Pass [facility] [place] [place] 55 [facility], [address] [place] [address] Social History Tobacco Use Types Packs/Day Years [...] 07/26/2025 1:15 PM EST Office Visit [facility] Medical Endocrine [address] [facility] 210 [place] [address] Lorna Schreiber MD 541 [facility]. [facility] 210 [place] [address] [email or web address] 09/27/2025 7:00 PM EDT Appointment [facility], Bone Density - [address] [address] Kaley Li MD [address] [place] [address] [place] [address] [email or web address] 02/08/2026 8:00 AM EDT Telemedicine - audio only [facility] [place]hythmia Service [address] [facility], 5th Floor, [address] [place] [address] Neetu Albarran FNP 55 [place] [address] PAM@[facility] documented as of this encounter Visit Diagnoses Not on filedocumented in this encounter Care Teams Sanitation Manager Relationship Specialty Start Date End Date Darin Maldonado MD [address] [place] [address] Dr Lemus [address] [place] [address] PCP - General Internal Medicine 11/07/17 documented as of this encounter Additional Source Comments The information contained in this document represents components of the legal health record. It is not the complete legal health record.[facility]
--- OUTSIDE RECORDS SUMMARY | 2025-04-23 11:49 | XMS_ITS | Encounter Summary ---
Author Organization [facility] Address [address] [place] [address] Phone Care Team Providers Care Manager Urgent Care Name Role Phone Darin Maldonado MD Primary Care Provider [phone] [phone] Encounter Details Date Type Department Care Team (Late st Contact Info) Description 08/21/2020 Procedure Pass [facility] Periop 6th floor 1153 [place] [address] Social History Tobacco Use Types Packs/Day Years [...] 08/21/2020 4:24 PM Candice Singletary RN * Portia Suicide Severity Rating Scale (Screener/Recent Self-Report) Question [...] [facility] Medical Endocrine 541 [facility] [address] [place] [address] Lorna Schreiber MD [address] [place] [address] [email or web address] 09/27/2025 7:00 PM EDT Appointment [facility], Bone Density - [address] [address] Kaley Li MD 541 [facility] [address] [place] [address] [email or web address] 02/08/2026 8:00 AM EDT Telemedicine - audio only [facility] Cardiac Arrhythmia Service 32 [facility], 5th Floor, [address] [place] [address] Neetu Albarran, DORR OPERATOR 55 [place] [address] [email or web address] documented as of this encounter Visit Diagnoses Not on filedocumented in this encounter Care Teams Manager Urgent Care Relationship Specialty Start Date End Date Darin Maldonado MD [address] [place] [address] [place] [address] PCP - General Internal Medicine 11/07/17 documented as of this encounter Additional Source Comments The information contained in this document represents components of the legal health record. It is not the complete legal health record.[facility]
--- OUTSIDE RECORDS SUMMARY | 2025-04-23 11:49 | XMS_ITS | Encounter Summary ---
Author Organization [facility] Address [address] [place] [address] Phone Care Team Providers Care Attendant Lodging Facilities Name Role Phone Darin Maldonado MD Primary Care Provider [phone] [phone] Encounter Details Date Type Department Care Team (Late st Contact Info) Description 10/09/2020 Procedure Pass [facility] Cardiology Division 55 [facility], [address] [place] [address] Social History Tobacco Use Types Packs/Day Years [...] Description 07/26/2025 1:15 PM EST [facility] 541 [facility] 210 [place] [address] Lorna Schreiber MD 541 [facility]. [facility] 210 [place] [address] [email or web address] 09/27/2025 7:00 PM EDT Appointment [facility], Bone Density - [address] [address] Kaley Li MD [address] [place] [address] [place] [address] [email or web address] 02/08/2026 8:00 AM EDT Telemedicine - audio only [facility] Cardiac Arrhythmia Service 32 [facility], 5th Floor, [address] [place] [address] Neetu Albarran FNP 55 [place] [address] PAM@[facility] documented as of this encounter Visit Diagnoses Not on filedocumented in this encounter Care Teams Attendant Lodging Facilities Relationship Specialty Start Date End Date Darin Maldonado MD [address] [place] [address] Dr Lemus [address] [place] [address] PCP - General Internal Medicine 11/07/17 documented as of this encounter Additional Source Comments The information contained in this document represents components of the legal health record. It is not the complete legal health record.[facility]
--- OUTSIDE RECORDS SUMMARY | 2025-04-23 11:49 | XMS_ITS | Encounter Summary ---
Author Organization [facility] Address [address] [place] [address] Phone Care Team Providers Care Hand Molder Meat Name Role Phone Darin Maldonado MD Primary Care Provider [phone] [phone] Encounter Details Date Type Department Care Team (Late st Contact Info) Description 11/22/2020 Procedure Pass [facility] [place] 55 [facility], [address] [place] [address] Social History Tobacco Use Types Packs/Day Years [...] Visit [facility] Medical Endocrine [address] [facility] 210 [place] [address] Lorna Schreiber MD 541 [facility]. [facility] 210 [place] [address] [email or web address] 09/27/2025 7:00 PM EDT Appointment [facility], Bone Density - [address] [address] Kaley Li MD [address] [place] [address] [place] [address] [email or web address] 02/08/2026 8:00 AM EDT Telemedicine - audio only [facility] [place]iac [facility]hythmia Service 32 [facility], 5th Floor, [address] [place] [address] Neetu Albarran FNP 55 [place] [address] PAM@[facility] documented as of this encounter Visit Diagnoses Not on filedocumented in this encounter Care Teams Hand Molder Meat Relationship Specialty Start Date End Date Darin Maldonado MD [address] [place] [address] Dr Lemus [address] [place] [address] PCP - General Internal Medicine 11/07/17 documented as of this encounter Additional Source Comments The information contained in this document represents components of the legal health record. It is not the complete legal health record.[facility]
--- OUTSIDE RECORDS SUMMARY | 2025-04-23 11:49 | XMS_ITS | Encounter Summary ---
Author Organization [facility] Address [address] [place] [address] Phone Care Team Providers Care Rim Buster Name Role Phone Darin Maldonado MD Primary Care Provider [phone] [phone] Encounter Details Date Type Department Care Team (Late st Contact Info) Description 01/05/2021 Procedure Pass [facility] 55 [facility], [address] [place] [address] Social History Tobacco Use Types Packs/Day Years [...] Office Visit [facility] Medical Endocrine 541 [facility] 210 [place] [address] Lorna Schreiber MD 541 [facility]. [facility] 210 [place] [address] [email or web address] 09/27/2025 7:00 PM EDT Appointment [facility], Bone Density - [address] [address] Kaley Li MD [address] [place] [address] [place] [address] [email or web address] 02/08/2026 8:00 AM EDT Telemedicine - audio only [facility]iac [facility]hythmia Service [address] [facility], 5th Floor, [address] [place] [address] Neetu Albarran FNP 55 [place] [address] PAM@[email or web address] documented as of this encounter Visit Diagnoses Not on filedocumented in this encounter Care Teams Rim Buster Relationship Specialty Start Date End Date Darin Maldonado MD [address] [place] [address] Dr Lemus [address] [place] [address] PCP - General Internal Medicine 11/07/17 documented as of this encounter Additional Source Comments The information contained in this document represents components of the legal health record. It is not the complete legal health record.[facility]
--- OUTSIDE RECORDS SUMMARY | 2025-04-23 11:49 | XMS_ITS | Encounter Summary ---
Author Organization [facility] Address [address] [place] [address] Phone Care Team Providers Care Carpenter Name Role Phone Darin Maldonado MD Primary Care Provider [phone] [phone] Encounter Details Date Type Department Care Team (Late st Contact Info) Description 07/11/2021 Procedure Pass [facility] EP Pacer Lab 55 [facility], Floor 1, Room 110 [place] [phone] Social History Tobacco Use Types Packs/Day Years [...] Visit [facility] Medical Endocrine 541 [facility] 210 [place] [address] Lorna Schreiber MD 541 [facility] 210 [place] [address] [email or web address] 09/27/2025 7:00 PM EDT Appointment [facility], Bone Density - [address] [address] Kaley Li MD 541 [facility] [address] [place] [address] [email or web address] 02/08/2026 8:00 AM EDT Telemedicine - audio only [facility] Cardiac Arrhythmia Service 32 [facility], 5th Floor, [address] [place] [address] Neetu Albarran, SOCIAL MEDIA EXECUTIVE 55 [place] [address] PAM@[facility] documented as of this encounter Visit Diagnoses Not on filedocumented in this encounter Care Teams Carpenter Relationship Specialty Start Date End Date Darin Maldonado MD [address] [place] [address] [place] [address] PCP - General Internal Medicine 11/07/17 documented as of this encounter Additional Source Comments The information contained in this document represents components of the legal health record. It is not the complete legal health record.[facility]
--- OUTSIDE RECORDS SUMMARY | 2025-04-23 11:49 | XMS_ITS | Encounter Summary ---
Author Organization [facility] Address [address] [place] [address] Phone Care Team Providers Care Medical Record Administrator Name Role Phone Darin Maldonado MD Primary Care Provider [phone] -[phone] Encounter Details Date Type Department Care Team (Late st Contact Info) Description 02/04/2018 Ancillary Orders [facility] [place] [address] [place] [address], [address] [place] [address] Hari Garcia MD, PhD [address] [place] [address] [email or web address] Cardiac arrhythmia, unspecified cardiac arrhythmia type [...] 07/26/2025 1:15 PM EST Office Visit [facility] Medical Endocrine [address] [facility] [address] [place] [address] Lorna Schreiber MD 541 [facility]. [address] [place] [address] [email or web address] 09/27/2025 7:00 PM EDT Appointment [facility], Bone Density - [address] [address] Kaley Li MD 541 [facility] [address] [place] [address] [email or web address] 02/08/2026 8:00 AM EDT Telemedicine - audio only [facility]iac [facility]rhythmia Service 32 [facility], 5th Floor, [address] [place] [address] Neetu Albarran FNP 55 [place] [address] PAM@[facility] documented as of this encounter Visit Diagnoses Diagnosis Cardiac arrhythmia, unspecified cardiac arrhythmia type documented in this encounter Care Teams Medical Record Administrator Relationship Specialty Start Date End Date Darin Maldonado MD [address] [place] [address] [place] [address] PCP - General Internal Medicine 11/07/17 documented as of this encounter Additional Source Comments The information contained in this document represents components of the legal health record. It is not the complete legal health record.[facility]
--- OUTSIDE RECORDS SUMMARY | 2025-04-23 11:49 | XMS_ITS | Encounter Summary ---
Author Organization [facility] Address [address] [place] [address] Phone Care Team Providers Care Interface Engineer Name Role Phone Darin Maldonado MD Primary Care Provider [phone] [phone] Encounter Details Date Type Department Care Team (Late st Contact Info) Description 08/23/2020 Procedure Pass [facility] Cardiology Division 55 [facility], [address] [place] [address] Social History Tobacco Use Types Packs/Day Years [...] Visit [facility] Medical Endocrine 541 [facility] 210 [place] [address] Lorna Schreiber MD 541 [facility]. [facility] 210 [place] [address] [email or web address] 09/27/2025 7:00 PM EDT Appointment [facility], Bone Density - [address] [address] Kaley Li MD [address] [place] [address] [place] [address] [email or web address] 02/08/2026 8:00 AM EDT Telemedicine - audio only [facility] Cardiac Arrhythmia Service 32 [facility], 5th Floor, [address] [place] [address] Neetu Albarran FNP 55 [place] [address] PAM@[facility] documented as of this encounter Visit Diagnoses Not on filedocumented in this encounter Care Teams Interface Engineer Relationship Specialty Start Date End Date Darin Maldonado MD [address] [place] [address] Dr Lemus [address] [place] [address] PCP - General Internal Medicine 11/07/17 documented as of this encounter Additional Source Comments The information contained in this document represents components of the legal health record. It is not the complete legal health record.[facility]
--- OUTSIDE RECORDS SUMMARY | 2025-04-23 11:49 | XMS_ITS | Encounter Summary ---
Author Organization [facility] Address [address] [place] [address] Phone Care Team Providers Care Water Plumber Name Role Phone Darin Maldonado MD Primary Care Provider [phone] [phone] Encounter Details Date Type Department Care Team (Late st Contact Info) Description 12/26/2017 Procedure Pass [facility] EP Pacer Lab 55 [facility], Floor 1, Room [address] [place] [phone] Social History Tobacco Use Types Packs/Day Years [...] Office Visit [facility] Medical Endocrine 541 [facility] 210 [place] [address] Lorna Schreiber MD 541 [facility] 210 [place] [address] [email or web address] 09/27/2025 7:00 PM EDT Appointment [facility], Bone Density - [address] [address] Kaley Li MD 541 [facility] [address] [place] [address] [email or web address] 02/08/2026 8:00 AM EDT Telemedicine - audio only [facility] Cardiac Arrhythmia Service 32 [facility], 5th Floor, [address] [place] [address] Neetu Albarran, NOTCHING MACHINE OPERATOR 55 [place] [address] PAM@[facility] documented as of this encounter Visit Diagnoses Not on filedocumented in this encounter Care Teams Water Plumber Relationship Specialty Start Date End Date Darin Maldonado MD [address] [place] [address] [place] [address] PCP - General Internal Medicine 11/07/17 documented as of this encounter Additional Source Comments The information contained in this document represents components of the legal health record. It is not the complete legal health record.[facility]
--- OUTSIDE RECORDS SUMMARY | 2025-04-23 11:49 | XMS_ITS | Encounter Summary ---
Author Organization [facility] Address [address] [place] [address] Phone Care Team Providers Care Supervisor Metal Placing Name Role Phone Darin Maldonado MD Primary Care Provider [phone] [phone] Encounter Details Date Type Department Care Team (Latest Contact Info) Description 04/08/2025 Transcribe Orders Virtual Department [address] [place] [address] Kaley Li MD [address] [facility] [address] [place] [address] [email or web address] Age-related osteoporosis without current pathological fracture (Primary [...] 1:15 PM EST Office Visit [facility] Medical Endocrine [address] [facility] [address] [place] [address] Lorna Schreiber MD [address] [facility]. [address] [place] [address] [email or web address] 09/27/2025 7:00 PM EDT Appointment [facility], Bone Density - [address] [address] Kaley Li MD [address] [facility] [address] [place] [address] [email or web address] 02/08/2026 8:00 AM EDT Telemedicine - audio only [facility] Cardiac Arrhythmia Service [address] [facility], 5th Floor, [address] [place] [address] Neetu Albarran FNP [address] [place] [address] [email or web address] Scheduled Orders Name Type Priority Associated Diagnoses Orde r Schedule DXA Monitoring Imaging Routine Age-related osteoporosis without current pathological fracture Expected: 05/08/2025, Expires: 04/08/2026 documented as of this encounter Visit Diagnoses Diagnosis Age-related osteoporosis without current pathological fracture- Primary documented in this encounter Care Teams Supervisor Metal Placing Relationship Specialty Start Date End Date Darin Maldonado MD [address] [place] [address] [place] [address] PCP - General Internal Medicine 11/07/17 documented as of this encounter Additional Source Comments The information contained in this document represents components of the legal health record. It is not the complete legal health record.[facility]
--- OUTSIDE RECORDS SUMMARY | 2025-04-23 11:49 | XMS_ITS | Clinical Summary ---
Author Organization [facility] Address [address] [place] [address] Phone Care Team Providers Care Painter Apprentice Name Role Phone Darin Maldonado MD Primary Care Provider Surgical History Surgery Date Site/Laterality Comments BREAST SURGERY PROCEDURE: [place] UNLISTED PROCEDURE BREAST OTHER SURGICAL HISTORY PROCEDURE: [...] year. [facility]amm[facility] [address], [address] -------- FINAL REPORT -------- Dictated By: Jaime Joya Dictated Date: 11/01/2024 07:58 ET Assigned Physician: Jaime Joya Reviewed and Electronically Signed By: Jaime Joya Signed Date: 11/01/2024 08:04 ET Workstation ID: [id number] Transcribed By: Self Edit Transcribed Date: 11/01/2024 [...] Computer-aided detection was employed with the [employer] 3-D. TISSUE DENSITY: The breasts are [...] year. Mammography location: [facility] [address], [address] -------- FINAL REPORT -------- Dictated By: Jaime Joya Dictated Date: 11/01/2024 07:58 ET Assigned Physician: Jaime Joya Reviewed and Electronically Signed By: Jaime Joya Signed Date: 11/01/2024 08:04 ET Workstation ID: [id number] Transcribed By: Self Edit Transcribed Date: 11/01/2024 07:58 ET us Self Referral Sppl IMG BI PROCEDURES Final Resul t from Last 3 Months or Most Recently Relevant to Health Maintenance Insurance [facility] Advance Directives Documents on File Type Date Recorded Patient Figure Skater Expl anation Health Care Decision (hx) 10/06/2018 AD HANDLEY DIRECTIVE Health Care Decision (hx) 10/06/2018 AD HANDLEY DIRECTIVE Health Care Decision (hx) 10/06/2018 AD HANDLEY DIRECTIVE Care Teams Painter Apprentice Relationship Specialty Start Date End Date Darin Maldonado MD [address] [place] [address] [address] [place], [place] PCP - General Internal Medicine 09/21/18
--- OUTSIDE RECORDS SUMMARY | 2025-04-23 11:49 | XMS_ITS | Encounter Summary ---
Author Organization [facility] Address [address] [place] [address] Phone Care Team Providers Care Production Solderer Name Role Phone Darin Maldonado MD Primary Care Provider [phone] [phone] Encounter Details Date Type Department Care Team (Late st Contact Info) Description 02/04/2018 Procedure Pass [facility] [place] Pacer Lab [address] [facility], Floor 1, Room [address] [place] [id number] Social History Tobacco Use Types Packs/Day Years [...] 1:15 PM EST Office Visit [facility] Medical Endocrine [address] [facility] 210 [place] [address] Lorna Schreiber MD 541 [facility] 210 [place] [address] [email or web address] 09/27/2025 7:00 PM EDT Appointment [facility], Bone Density - [address] [address] Kaley Li MD [address] [facility] [address] [place] [address] [email or web address] 02/08/2026 8:00 AM EDT Telemedicine - audio only [facility] Cardiac Arrhythmia Service [address] [facility], 5th Floor, [address] [place] [address] Neetu Albarran, HELP DESK TECHNICIAN 55 [place] [address] [email or web address] documented as of this encounter Visit Diagnoses Not on filedocumented in this encounter Care Teams Production Solderer Relationship Specialty Start Date End Date Darin Maldonado MD [address] [place] [address] [place] [address] PCP - General Internal Medicine 11/07/17 documented as of this encounter Additional Source Comments The information contained in this document represents components of the legal health record. It is not the complete legal health record.[facility]
--- OUTSIDE RECORDS SUMMARY | 2025-04-23 11:49 | XMS_ITS | Encounter Summary ---
Author Organization [facility] Address [address] [place] [address] Phone Care Team Providers Care Mold Shaker Name Role Phone Darin Maldonado MD Primary Care Provider [phone] Encounter Details Date Type Department Care Team (Late st Contact Info) Description 02/19/2021 Procedure Pass [facility] [place] Division [address] [facility], [address] [place] [address] Social History Tobacco Use Types Packs/Day Years [...] Description 07/26/2025 1:15 PM EST Office Visit [facility] Medical Endocrine [address] [facility] 210 [place] [address] Lorna Schreiber MD 541 [facility]. [facility] 210 [place] [address] [email or web address] 09/27/2025 7:00 PM EDT Appointment [facility], Bone Density - [address] [address] Kaley Li MD [address] [place] [address] [email or web address] 02/08/2026 8:00 AM EDT Telemedicine - audio only [facility] Cardiac Arrhythmia Service [address] [facility], 5th Floor, [address] [place] [address] Neetu Albarran FNP [address] [place] [address] [email or web address] documented as of this encounter Visit Diagnoses Not on filedocumented in this encounter Care Teams Mold Shaker Relationship Specialty Start Date End Date Darin Maldonado MD [address] [place] [address] Dr Lemus [address] [place] [address] PCP - General Internal Medicine 11/07/17 documented as of this encounter Additional Source Comments The information contained in this document represents components of the legal health record. It is not the complete legal health record.[facility]
--- OUTSIDE RECORDS SUMMARY | 2025-04-23 11:49 | XMS_ITS | Encounter Summary ---
Author Organization [facility] Address [address] [place] [address] Phone Care Team Providers Care Cuprous Chloride Helper Name Role Phone Darin Maldonado MD Primary Care Provider [phone] Encounter Details Date Type Department Care Team (Late Contact Info) Description 01/28/2024 Procedure Pass [facility] Holter Lab [address] [facility], 5th Floor, [address] [place] [address] Social History Tobacco Use Types Packs/Day Years [...] 1:15 PM EST Office Visit [facility] Medical Endocrine [address] [facility] [address] [place] [address] Lorna Schreiber MD [address] [facility]. [address] [place] [address] [email or web address] 09/27/2025 7:00 PM EDT Appointment [facility], Bone Density - [address] [address] Kaley Li MD [address] [facility] [address] [place] [address] [email or web address] 02/08/2026 8:00 AM EDT Telemedicine - audio only [facility] Cardiac Arrhythmia Service [address] [facility], 5th Floor, [address] [place] [address] Neetu Albarran, SANDBLASTER SUPERVISOR 55 [place] [address] [email or web address] documented as of this encounter Visit Diagnoses Not on filedocumented in this encounter Care Teams Cuprous Chloride Helper Relationship Specialty Start Date End Date Darin Maldonado MD [address] [place] [address] [place] [address] PCP - General Internal Medicine 11/07/17 documented as of this encounter Additional Source Comments The information contained in this document represents components of the legal health record. It is not the complete legal health record.[facility]
--- OUTSIDE RECORDS SUMMARY | 2025-04-23 11:49 | XMS_ITS | Encounter Summary ---
Author Organization [facility] Address [address] [place] [address] Phone Care Team Providers Care High Pressure Firer Name Role Phone Darin Maldonado MD Primary Care Provider [phone] [phone] Encounter Details Date Type Department Care Team (Late st Contact Info) Description 05/21/2021 Procedure Pass [facility] Cardiology Division [address] [facility], [address] [place] [address] Social History Tobacco Use Types Packs/Day Years [...] [facility] [address] [facility] 210 [place] [address] Lorna Schreiber MD 541 [facility]. [facility] [address] [place] [address] [email or web address] 09/27/2025 7:00 PM EDT Appointment [facility], Bone Density - [address] [address] Kaley Li MD [address] [place] [address] [email or web address] 02/08/2026 8:00 AM EDT Telemedicine - audio only [facility] Cardiac Arrhythmia Service [address] [facility], 5th Floor, [address] [place] [address] Neetu Albarran FNP [address] [place] [address] [email or web address] documented as of this encounter Visit Diagnoses Not on filedocumented in this encounter Care Teams High Pressure Firer Relationship Specialty Start Date End Date Darin Maldonado MD [address] [place] [address] Dr Lemus [address] [place] [address] PCP - General Internal Medicine 11/07/17 documented as of this encounter Additional Source Comments The information contained in this document represents components of the legal health record. It is not the complete legal health record.[facility]
--- OUTSIDE RECORDS SUMMARY | 2025-04-23 11:49 | XMS_ITS | Encounter Summary ---
Author Organization [facility] Address [address] [place] [address] Phone Care Team Providers Care Customer Solutions Teammate Name Role Phone Darin Maldonado MD Primary Care Provider [phone] [phone] Encounter Details Date Type Department Care Team (Late st Contact Info) Description 04/05/2021 Procedure Pass [facility] Cardiology Division [address] [facility], [address] [place] [address] Social History Tobacco Use Types Packs/Day Years [...] EST Office Visit [facility] Medical Endocrine [address] [facility] 210 [place] [address] Lorna Shcreiber MD 541 [facility]. [facility] 210 [place] [address] [email or web address] 09/27/2025 7:00 PM EDT Appointment [facility], Bone Density - [address] [address] Kaley Li MD [address] [place] [address] [email or web address] 02/08/2026 8:00 AM EDT Telemedicine - audio only [facility] Cardiac Arrhythmia Service 32 [facility], 5th Floor, [address] [place] [address] Neetu Albarran FNP [address] [place] [address] [email or web address] documented as of this encounter Visit Diagnoses Not on filedocumented in this encounter Care Teams Customer Solutions Teammate Relationship Specialty Start Date End Date Darin Maldonado MD [address] [place] [address] Dr Lemus [address] [place] [address] PCP - General Internal Medicine 11/07/17 documented as of this encounter Additional Source Comments The information contained in this document represents components of the legal health record. It is not the complete legal health record.[facility]
--- OUTSIDE RECORDS SUMMARY | 2025-04-23 11:49 | XMS_ITS | Encounter Summary ---
Author Organization [facility] Address [address] [place] [address] Phone Care Team Providers Care Drug Department Worker Name Role Phone Darin Maldonado MD Primary Care Provider [phone] [phone] Encounter Details Date Type Department Care Team (Late st Contact Info) Description 05/28/2021 Procedure Pass [facility] Cardiology Division [address] [facility], [address] [place] [address] Social History Tobacco Use Types Packs/Day Years [...] Office Visit [facility]ocrine [address] [facility] 210 [place] [address] Lorna Schreiber MD 541 [facility]. [facility] 210 [place] [address] [email or web address] 09/27/2025 7:00 PM EDT Appointment [facility], Bone Density - [address] [address] Kaley Li MD [address] [place] [address] [email or web address] 02/08/2026 8:00 AM EDT Telemedicine - audio only [facility] Cardiac Arrhythmia Service [address] [facility], 5th Floor, [address] [place] [address] Neetu Albarran FNP [address] [place] [address] [email or web address] documented as of this encounter Visit Diagnoses Not on filedocumented in this encounter Care Teams Drug Department Worker Relationship Specialty Start Date End Date Darin Maldonado MD [address] [place] [address] Dr eLmus [address] [place] [address] PCP - General Internal Medicine 11/07/17 documented as of this encounter Additional Source Comments The information contained in this document represents components of the legal health record. It is not the complete legal health record.[facility]
[2025-04-23 13:52] LABS: Creatinine, mg/dL 26.87; Sodium, 24 Hr Urine 30.0 mmol/L
[2025-04-23 14:01] LABS: Total Volume 24 Hour Urine 3100 mL
[2025-04-25 17:53] LABS: Calcium/Creatinine Ratio 317 mg/g creat (30-275); Creatinine 24Hr Urine 0.90 g/24 h (0.50-2.15)
== END 2025-04-23 08:01 | disposition home or self-care (01) ==
LOC: HO.HMGCLNP 08:00
PROVIDERS: PCP Internal Medicine; Visit Provider Internal Medicine Endocrinology, Diabetes & Metabolism
DX: M81.0 Age-related osteoporosis without current pathological fracture (principal)
CPT/HCPCS: 82340; 84300

== ENCOUNTER 2025-05-02 13:55 | Outpatient (AMB) | payer BC, SELFPAY ==
[2025-05-02 14:00] VITALS: BP 120/78; PULSE 66; O2SAT 98; BMI 21.4
--- NOTE | 2025-05-02 14:00 | A.OFFVIS_ITS ---
Vital Signs 05/02/25 14:00 Height 5 ft 7 in Weight 136 lb 10.986 oz BMI 21.4 BP 120/78 Blood Pressure Location Rt brachial Position Sitting Pulse 66 Pulse Source Pulse Oximeter Pulse Oximetry (%) 98 Oxygen Delivery Method Room Air Intake Visit Reasons: Osteoporosis f/u Intake Note: Patient present today for Osteoporosis office visit. Manager Analytical Required: No Accompanied by: Self / Same As Patient Allergies amoxicillin (AMOXICILLIN) Allergy (Severe, Verified 12/13/24 16:45) HIVES penicillamine (Cuprimine) Allergy (Severe, Verified 12/13/24 16:45) HIVES Penicillins (PENICILLINS) Allergy (Severe, Verified 12/13/24 16:45) HIVES Medication List - Last Reconciled 05/02/25 by Cameron Funk MD cholecalciferol (vitamin D3) 25 mcg PO DAILY cyclobenzaprine 5 mg PO TID PRN gabapentin 300 mg (3 x 100 mg) PO BEDTIME magnesium citrate 296 mL PO ONCE rizatriptan 10 mg PO DAILY PRN ropinirole 1 mg PO BEDTIME 90 days sodium,potassium,mag sulfates 17.5-3.13-1.6 gram (Suprep Bowel Prep Kit) DILUTE; drink 1/2 at 6-8 pm and half at 11 PM- 1AM sulfamethoxazole-trimethoprim 800-160 mg (Bactrim DS) 1 tab PO BID 3 days HPI Comments Details: 64 YO Female is seen in consultation at the request of PCP for Osteoporosis. First diagnosed in 2018.Have not seen endo before Received treatment in the past with alendronate, from 2017 to 2022. Tolerated treatment well without complication. No history of pathologic fracture or ONJ. Hip replacement in 2020 to due to OA Has several servings of dietary calcium per day in the form of brocoli , cereal , yogurt . Takes Calcium supplement 1200 mg daily in divided doses. Takes 800 IU of Vitamin D daily. Denies ever using PPI, anticoagulant, antiepileptic or glucocorticoid medication. Does weight bearing exercise 3-4 days per week in the form of recumbent bike and wt bearing exercise . 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 UTD on dental cleanings and sees dentist every 6 months. No planned upcoming dental work or extractions. No smoking or heavy ETOH use DXA dated : FINDINGS: LEFT FEMUR, NECK: Current: BMD 0.678 g/cm2, Z-score -1.0, T-score -2.6, osteoporosis. Baseline: BMD 0.651 g/cm2. LEFT FEMUR, TOTAL: Current: BMD 0.636 g/cm2, Z-score -1.6, T-score -2.9, osteoporosis, 7.6% decrease from baseline (<5% change is not significant). Baseline: BMD 0.688 g/cm2. AP SPINE L1-L4: Current: BMD 0.878 g/cm2, Z-score -0.8, T-score -2.5, osteoporosis, 0.2% decrease from baseline (<5% change is not significant). Baseline: BMD 0.880 g/cm2. IDENTIFIED RISK FACTORS: Menopause, height loss, osteoporosis. HISTORY OF FRACTURE: None listed. MEDICATIONS: Calcium, vitamin D. MM/XR DEXA axial skeleton IMPRESSION: 1. DIAGNOSIS: Osteoporosis based on the lowest T-score value of -2.9 in the total femur applying World Health Organization criteria. Labs: Secondary workup negative Took 5 years of alendronate therapy without increases in bone density [facility] Medical History Status post placement of implantable loop recorder (~02/04/18) Insomnia Osteoporosis Brugada syndrome Osteoarthritis Migraine Surgical History History of colonoscopy History of total right hip arthroplasty History of breast surgery Family History Father No problems noted. Mother Alive and well Social History Housing: House Are you a primary child care development specialist to a significant other at home: No Do you presently have visiting nurse or other home services: No Alcohol intake: current Alcohol intake frequency: holidays/special occasions only Patient Tobacco Use Status: Former Tobacco user Tobacco use type: Cigarette e-Cigarette/Vaping Use: Never Used Second Hand Smoke Exposure: Yes Advance Directives Date on File: 04/07/20 service: No Current occupational status: employed Cognitive needs: No Hearing needs: No Vision needs: Yes (Glasses) Physical Exam Vital Signs: Last Vital Signs Pulse 66 05/02/25 14:00 BP 120/78 05/02/25 14:00 Pulse Ox 98 05/02/25 14:00 Oxygen Delivery Method Room Air 05/02/25 14:00 BMI result Body Mass Index 21.4 Assessment & Plan Assessment & Plan (1) Osteoporosis: Code(s): M81.0 - Age-related osteoporosis without current pathological fracture Category: Medical Qualifiers: Osteoporosis type: age-related Presence of current pathological fracture: without current pathological fracture Qualified Code(s): M81.0 - Age- related osteoporosis without current pathological fracture Plan: this is a 63-year-old white female with a history of osteoporosis with a history of 5 year treatment of alendronate with residual osteoporosis. Secondary workup was negative. Urine NTX is suppressed P hima is give a course of anabolic therapy with either Evenity, Tymlos or Forteo or could convert to Prolia but would favor anabolic therapy initially considering the suppressed urine NTX and then followed by an anti resorptive. We discussed this approach versus repeating a DEXA bone density a different institution along with a TBS to see if anabolic therapy is warranted. The patient will continue with the calcium and vitamin-D supplementation. She is reluctant to use Evenity because of prior cardiac issues but would consider Tymlos or Forteo. She will get back to me in the next several months as to whether or not she wants to repeat the bone density or go onto the Tymlos. I will see her back in 3 months Coding Level of Care Code Est Pt Level 3 (86291) Diagnoses Age-related osteoporosis without current pathological fracture M81.0 Osteoporosis type: age-related Presence of current pathological fracture: without current pathological fracture
--- OUTSIDE RECORDS SUMMARY | 2025-05-02 16:13 | XMS_ITS | Encounter Summary ---
Author Organization [facility] Address [address] [place] [address] Phone Care Team Providers Care Cardiopulmonary Specialist Name Role Phone Darin Maldonado MD Primary Care Provider [phone] [phone] Encounter Details Date Type Department Care Team (Late st Contact Info) Description 08/21/2020 Procedure Pass BWF Periop 6th floor [address] [place] [address] Social History Tobacco Use Types Packs/Day Years [...] 08/21/2020 4:24 PM Candice Singletary RN * [place] Suicide Severity Rating Scale (Screener/Recent Self-Report) Question [...] 07/26/2025 1:15 PM EST Office Visit [facility] Medical Endocrine [address] [facility] [address] [place] [address] Lorna Schreiber MD [address] [place] [address] [email or web address] 09/27/2025 7:00 PM EDT Appointment [facility], Bone Density - [address] [address] Kaley Li MD [address] [facility] [address] [place] [address] [email or web address] 02/08/2026 8:00 AM EDT Telemedicine - audio only [facility] Cardiac Arrhythmia Service [address] [facility], 5th Floor, [address] [place] [address] Neetu Albarran, ELECTRONICS RECYCLER 55 [place] [address] [email or web address] documented as of this encounter Visit Diagnoses Not on filedocumented in this encounter Care Teams Cardiopulmonary Specialist Relationship Specialty Start Date End Date Darin Maldonado MD [address] [place] [address] [place] [address] PCP - General Internal Medicine 11/07/17 documented as of this encounter Additional Source Comments The information contained in this document represents components of the legal health record. It is not the complete legal health record.[facility]
--- OUTSIDE RECORDS SUMMARY | 2025-05-02 16:13 | XMS_ITS | Encounter Summary ---
Author Organization [facility] Address [address] [place] [address] Phone Care Team Providers Care File Clerk Name Role Phone Darin Maldonado MD Primary Care Provider [phone] Encounter Details Date Type Department Care Team (Late st Contact Info) Description 08/15/2021 Procedure Pass [facility] [place] [facility]er [facility] [address] [facility], Floor 1, Room 110 [place] [id number] Social History Tobacco Use Types Packs/Day Years [...] Description 07/26/2025 1:15 PM EST Office Visit [facility] Medical Endocrine [address] [facility] [address] [place] [address] Lorna Schreiber MD [address] [facility] 210 [place] [address] [email or web address] 09/27/2025 7:00 PM EDT Appointment [facility], Bone Density - [address] [address] Kaley Li MD [address] [facility] [address] [place] [address] [email or web address] 02/08/2026 8:00 AM EDT Telemedicine - audio only [facility] Cardiac Arrhythmia Service [address] [facility], 5th Floor, [address] [place] [address] Neetu Albarran, SHIP KEEPER 55 [place] [address] [email or web address] documented as of this encounter Visit Diagnoses Not on filedocumented in this encounter Care Teams File Clerk Relationship Specialty Start Date End Date Darin Maldonado MD [address] [place] [address] [place] [address] PCP - General Internal Medicine 11/07/17 documented as of this encounter Additional Source Comments The information contained in this document represents components of the legal health record. It is not the complete legal health record.[facility]
--- OUTSIDE RECORDS SUMMARY | 2025-05-02 16:13 | XMS_ITS | Encounter Summary ---
Author Organization [facility] Address [address] [place] [address] Phone Care Team Providers Care Picker Operator Name Role Phone Darin Maldonado MD Primary Care Provider [phone] [phone] Encounter Details Date Type Department Care Team (Late st Contact Info) Description 05/28/2021 Procedure Pass [facility] Cardiology Division [address] [facility], [address] [place] [address] Social History Tobacco Use Types Packs/Day Years [...] 1:15 PM EST Office Visit [facility] Medical Endocrine [address] [facility] 210 [place] [address] Lorna Schreiber MD [address] [facility]. [facility] 210 [place] [address] [email or web address] 09/27/2025 7:00 PM EDT Appointment [facility], Bone Density - [address] [address] Kaley Li MD [address] [place] [address] [email or web address] 02/08/2026 8:00 AM EDT Telemedicine - audio only [facility] Cardiac Arrhythmia Service [address] [facility], 5th Floor, [address] [place] [address] Neetu Albarran FNP 55 [place] [address] [email or web address] documented as of this encounter Visit Diagnoses Not on filedocumented in this encounter Care Teams Picker Operator Relationship Specialty Start Date End Date Darin Maldonado MD [address] [place] [address] Dr Lemus [address] [place] [address] PCP - General Internal Medicine 11/07/17 documented as of this encounter Additional Source Comments The information contained in this document represents components of the legal health record. It is not the complete legal health record.[facility]
--- OUTSIDE RECORDS SUMMARY | 2025-05-02 16:13 | XMS_ITS | Encounter Summary ---
Author Organization [facility] Address [address] [place] [address] Phone Care Team Providers Care Fur Floor Worker Name Role Phone Darin Maldonado MD Primary Care Provider [phone] [phone] Encounter Details Date Type Department Care Team (Late st Contact Info) Description 05/27/2020 Procedure Pass [facility] Cardiology Division [address] [facility], [address] [place] [address] Social History Tobacco Use Types Packs/Day Years [...] Description 07/26/2025 1:15 PM EST Office Visit [facility] Medical Endocrine [address] [facility][1] 210 [place] [address] Lorna Schreiber MD [address] [facility]. [facility] 210 [place] [address] [email or web address] 09/27/2025 7:00 PM EDT Appointment [facility], Bone Density - [address] [address] Kaley Li MD [address] [place] [place] [address] [email or web address] 02/08/2026 8:00 AM EDT Telemedicine - audio only [facility] Cardiac Arrhythmia Service [address] [facility], 5th Floor, [address] [place] [address] Neetu Albarran FNP 55 [place] [address] [email or web address] documented as of this encounter Visit Diagnoses Not on filedocumented in this encounter Care Teams Fur Floor Worker Relationship Specialty Start Date End Date Darin Maldonado MD [address] [place] [address] Dr Lemus [address] [place] [address] PCP - General Internal Medicine 11/07/17 documented as of this encounter Additional Source Comments The information contained in this document represents components of the legal health record. It is not the complete legal health record.[facility]
--- OUTSIDE RECORDS SUMMARY | 2025-05-02 16:13 | XMS_ITS | Clinical Summary ---
Author Organization [facility] Address [address] [facility] [address] [place] [address] Phone Care Team Providers Care Rides Attendant Name Role Phone Darin Maldonado MD Primary Care Provider +1 [phone] Allergies Active Allergy Reactions Criticality Noted Date [...] Will have her obtain an ECG at [facility] years unless she has symptoms Brugada instructions reviewed Assessment & Plan (01/28/2024 3:25 PM EDT): Episode of dizziness Will obtain monitor and ECG at [facility] and await those results Aggressive treatment [...] Description 04/08/2025 Transcribe Orders Virtual Department [address] [place] [address] Kaley Li MD Age-related osteoporosis without current pathological fracture (Primary Dx) 03/31/2025 Telephone [facility] Medical Endocrine [address] [facility] [address] [place] [address] Lorna Schreiber MD DEXA Order 01/31/2025 1:00 PM EDT Telemedicine - audio only [facility] Cardiac Arrhythmia Service [address] [facility], 5th Floor, [address] [place] [address] Neetu Albarran FNP Brugada syndrome (Primary Dx) from Last 3 Months Family History Medical [...] [facility] [address] [facility] [address] [place] [address] Lorna Schreiber MD [address] [facility] [place] [address] [email or web address] 09/27/2025 7:00 PM EDT Appointment [facility], Bone Density - [facility] 30 [place] [address] Kaley Li MD [address] [facility] [address] [place] [address] [email or web address] 02/08/2026 8:00 AM EDT Telemedicine - audio only [facility] Cardiac Arrhythmia Service [address] [facility], 5th Floor, [address] [place] [address] Neetu Albarran, SEAL MIXER [address] [place] [address] [email or web address] Health Maintenance Due Date Last Done Comments [...] this topic Medical Devices Implanted Type Area Jury Consultant Device Identifier Shelf Expiration Date Model / Serial / Lot Plug Hip 48 66mm Implant Liner Hole Eliminator Thrded Positive Stop Baltic 16b - [id number] Implanted:Qty: 1 on 08/21/2020 by Luis Sharma MD at [facility] Right: Hip [facility] 06/22/2030 0 / / [id number] Hip Stem 109mm Size 7 Femoral Tri Lock Gripton Bps Cementless Standard Offset - [id number] Implanted:Qty: 1 on 08/21/2020 by Luis Sharma MD at [facility] Right: Hip [facility] 01/20/2030 1011-09-28 0 / / [id number] Pin Orthopedic 3.2nmn145 Smooth Double Sharp Tip S/S Steinmann Pk/6ea - [id number] Implanted:Qty: 3 on 08/21/2020 by Luis Sharma MD at [facility] STANDARD Right: Hip [employer] 1636-109 / / Acetabular Liner 11u80gh Plus 4 10deg Plstc Implant 10 - [id number] Implanted:Qty: 1 on 08/21/2020 by Luis Sharma MD at [facility] STANDARD Right: Hip [facility] 04/22/2025 4 / / [id number] Femoral Shell Cup 54mm Acetabular [place] Por[place]oat - [id number] Implanted:Qty: 1 on 08/21/2020 by Luis Sharma MD at [facility] STANDARD Right: Hip [facility] 05/22/2030 1216-06-27 4 / / [id number] Hip 36mm 5.0 Articul/Tu Rom Metal Biolox Delta 05/05 Tapered Plus - [id number] Implanted:Qty: 1 on 08/21/2020 by Luis Sharma MD at [facility] STANDARD Right: Hip [employer] 06/22/2025 0 / / [id number] Explanted Type Area Jury Consultant Device Identifier Shelf Expiration Date Model / Serial / Lot Reveal Linq Loop Recorder System - [id number] Implanted:Qty: 1 on 02/04/2018 by Richard Sheridan MD at [facility] Explanted:Qty: 1 on 08/15/2021 by Jeremy Washington MD, MPH at [facility] Implantable Monitor [employer] 09/17/2018 LNQ11 / [id number] S / Procedures Procedure Name Priority Date/Time Associated Diagnosis Comments BD DXA MONITORING Routine 04/08/2025 12:31 PM EDT Age-related osteoporosis without current pathological fracture from Last 3 Months Insurance [facility] PPO EPO [place] [facility] PPO EPO [facility]PO [facility] PPO EPO [facility] [place]PO [id number] [id number] [facility] PPO EPO Advance Directives For more information, please contact: [phone] (9AM - 5PM [facility], Friday-Friday) * Full Code (Latest Code Status on File) Date Activated Date Inactivated Comments 08/21/2020 5:32 PM Question Answer Comments Code Status Confirmed With: Patient Code Status Communicated To: Other (specify belo w) Code Discussion Comments: HOT TAMALE MAN Care Teams Rides Attendant Relationship Specialty Start Date End Date Darin Maldonado MD [address] [place] [address] [place] [address] PCP - General Internal Medicine 11/07/17 Additional Source Comments The information contained in this document represents components of the legal health record. It is not the complete legal health record.[facility]
--- OUTSIDE RECORDS SUMMARY | 2025-05-02 16:13 | XMS_ITS | Encounter Summary ---
Author Organization [facility] Address [address] [place] [address] Phone Care Team Providers Care Push Bench Operator Helper Name Role Phone Darin Maldonado MD Primary Care Provider [phone] [phone] Encounter Details Date Type Department Care Team (Late st Contact Info) Description 05/27/2020 Procedure Pass [facility] Cardiology Division [address] [facility], [address] [place] [address] Social History Tobacco Use Types Packs/Day Years [...] [facility] [address] [facility] 210 [place] [address] Lorna Schreiber MD [address] [facility]. [facility] 210 [place] [address] [email or web address] 09/27/2025 7:00 PM EDT Appointment [facility], Bone Density - [address] [address] Kaley Li MD [address] [place] [address] [email or web address] 02/08/2026 8:00 AM EDT Telemedicine - audio only [facility] Cardiac Arrhythmia Service [address] [facility], 5th Floor, [address] [place] [address] Neetu Albarran FNP 55 [place] [address] [email or web address] documented as of this encounter Visit Diagnoses Not on filedocumented in this encounter Care Teams Push Bench Operator Helper Relationship Specialty Start Date End Date Darin Maldonado MD [address] [place] [address] Dr Lemus [address] [place] [address] PCP - General Internal Medicine 11/07/17 documented as of this encounter Additional Source Comments The information contained in this document represents components of the legal health record. It is not the complete legal health record.[facility]
--- OUTSIDE RECORDS SUMMARY | 2025-05-02 16:13 | XMS_ITS | Clinical Summary ---
Author Organization [facility] Address [address] [place] [address] Phone Care Team Providers Care Election Clerk Name Role Phone Darin Maldonado MD Primary Care Provider Surgical History Surgery Date Site/Laterality Comments BREAST SURGERY PROCEDURE: [place] UNLISTED PROCEDURE BREAST OTHER SURGICAL HISTORY PROCEDURE: [...] year. [facility]amm[facility] [address], [address] -------- FINAL REPORT -------- Dictated By: Jaime Joya Dictated Date: 11/01/2024 07:58 ET Assigned Physician: Jaime Joya Reviewed and Electronically Signed By: Jaime Joya Signed Date: 11/01/2024 08:04 ET Workstation ID: [id number] Transcribed By: Self Edit Transcribed Date: 11/01/2024 [...] Computer-aided detection was employed with the [employer] AI 3-D. TISSUE DENSITY: The breasts are [...] year. Mammography location: [facility] [address], [address] -------- FINAL REPORT -------- Dictated By: Jaime Joya Dictated Date: 11/01/2024 07:58 ET Assigned Physician: Jaime Joya Reviewed and Electronically Signed By: Jaime Joya Signed Date: 11/01/2024 08:04 ET Workstation ID: [id number] Transcribed By: Self Edit Transcribed Date: 11/01/2024 07:58 ET us Self Referral Sppl IMG BI PROCEDURES Final Resul t from Last 3 Months or Most Recently Relevant to Health Maintenance Insurance [facility] Advance Directives Documents on File Type Date Recorded Patient Body Technician/Painter Expl anation Health Care Decision (hx) 10/06/2018 AD HANDLEY DIRECTIVE Health Care Decision (hx) 10/06/2018 AD HANDLEY DIRECTIVE Health Care Decision (hx) 10/06/2018 AD HANDLEY DIRECTIVE Care Teams Election Clerk Relationship Specialty Start Date End Date Darin Maldonado MD [address] [place] [address] [address] [place], [place] PCP - General Internal Medicine 09/21/18
--- OUTSIDE RECORDS SUMMARY | 2025-05-02 16:13 | XMS_ITS | Encounter Summary ---
Author Organization [facility] Address [address] [place] [address] Care Team Providers Care Specialist Field Engineer Name Role Phone Darin Maldonado MD Primary Care Provider Encounter Details Date Type Department Care Team (Latest Contact Info) Description 11/16/2024 Lab Requisition [facility] - Main Lab [address] [place] [address] Krista Astorga MD [address] [phone] Encounter for gynecological examination (general) (routine) without [...] lesion or malignancy 11/16/2024 4:27 PM EDT [facility] General Categorization Negative 11/16/2024 4:27 PM EDT [facility] Other Findings Atrophy 11/16/2024 4:27 PM [facility] Specimen Adequacy Satisfactory for evaluation 11/16/2024 4:27 PM [facility] Pap Methodology Liquid Based Pap Test 11/16/2024 4:27 PM T [facility] Disclaimer The Pap test is a screening test which carries an inherent false negative rate. These test results should be correlated with the patient's clinical findings and history. This Pap test was processed using an automated screening system. Technical cytopathology services provided by [facility], at [address] [place] [address] (CLIA # [id number]/Aldo Gasca MD, Patient Care.) 11/16/2024 4:27 PM [facility] Console Pap Interpretation Reported 11/16/2024 4:27 PM [facility] Brushing/Spatula Cervix uteri structure / Unknown 11/12/2024 12:00 PM EDT 11/16/2024 7:11 AM EDT us Krista Astorga MD LAB CYTOLOGY ORDERABLES Final Result [facility] [address] [place] [address], documented in this encounter Visit Diagnoses Diagnosis Encounter for gynecological examination (general) (routine) without abnormal findings documented in this encounter Care Teams Specialist Field Engineer Relationship Specialty Start Date End Date Darin Maldonado MD [address] [place] [address] Dr Serrano [address] PCP - General Internal Medicine 09/21/18 documented as of this encounter
--- OUTSIDE RECORDS SUMMARY | 2025-05-02 16:13 | XMS_ITS | Encounter Summary ---
Author Organization [facility] Address [address] [place] [address] Phone Care Team Providers Care Survey Field Technician Name Role Phone Darin Maldonado MD Primary Care Provider [phone] Encounter Details Date Type Department Care Team (Late st Contact Info) Description 06/14/2020 Procedure Pass [facility] Cardiology Division [address] [facility], [address] [place] [address] Social History Tobacco Use Types Packs/Day Years [...] Visit [facility] Medical Endocrine [address] [facility] 210 [place] [address] Lorna Schreiber MD 541 [facility]. [facility] 210 [place] [address] [email or web address] 09/27/2025 7:00 PM EDT Appointment [facility], Bone Density - [address] [address] Kaley Li MD [address] [place] [address] [email or web address] 02/08/2026 8:00 AM EDT Telemedicine - audio only [facility] Cardiac Arrhythmia Service [address] [facility], 5th Floor, [address] [place] [address] Neetu Albarran FNP 55 [place] [address] [email or web address] documented as of this encounter Visit Diagnoses Not on filedocumented in this encounter Care Teams Survey Field Technician Relationship Specialty Start Date End Date Darin Maldonado MD [address] [place] [address] Dr Lemus [address] [place] [address] PCP - General Internal Medicine 11/07/17 documented as of this encounter Additional Source Comments The information contained in this document represents components of the legal health record. It is not the complete legal health record.[facility]
--- OUTSIDE RECORDS SUMMARY | 2025-05-02 16:13 | XMS_ITS | Encounter Summary ---
Author Organization [facility] Address [address] [place] [address] Phone Care Team Providers Care Family Centered Specialist Name Role Phone Darin Maldonado MD Primary Care Provider [phone] Encounter Details Date Type Department Care Team (Late Contact Info) Description 01/28/2024 Procedure Pass [facility] [address] [facility], 5th Floor, [address] [place] [address] Social History Tobacco Use Types Packs/Day Years [...] 07/26/2025 1:15 PM EST Office Visit [facility] Medical Endocrine [address] [facility] [address] [place] [address] Lorna Schreiber MD [address] [facility]. [address] [place] [address] [email or web address] 09/27/2025 7:00 PM EDT Appointment [facility], Bone Density - [address] [address] Kaley Li MD [address] [facility] [address] [place] [address] [email or web address] 02/08/2026 8:00 AM EDT Telemedicine - audio only [facility] Cardiac Arrhythmia Service [address] [facility], 5th Floor, [address] [place] [address] Neetu Albarran, IMMIGRATION CASE MANAGER [address] [place] [address] [email or web address] documented as of this encounter Visit Diagnoses Not on filedocumented in this encounter Care Teams Family Centered Specialist Relationship Specialty Start Date End Date Darin Maldonado MD [address] [place] [address] [place] [address] PCP - General Internal Medicine 11/07/17 documented as of this encounter Additional Source Comments The information contained in this document represents components of the legal health record. It is not the complete legal health record.[facility]
--- OUTSIDE RECORDS SUMMARY | 2025-05-02 16:13 | XMS_ITS | Encounter Summary ---
Author Organization [facility] Address [address] [place] [address] Phone Care Team Providers Care Radiologic Technology Instructor Name Role Phone Darin Maldonado MD Primary Care Provider +1 [phone] Encounter Details Date Type Department Care Team (Late st Contact Info) Description 08/23/2020 Procedure Pass [facility] [place] [address] [facility], [address] [place] [address] Social History Tobacco Use Types Packs/Day Years [...] Visit [facility] Medical Endocrine [address] [facility] [address] [place] [address] Lorna Schreiber MD 541 [facility]. [facility] 210 [place] [address] [email or web address] 09/27/2025 7:00 PM EDT Appointment [facility], Bone Density - [address] [address] Kaley Li MD [address] [place] [address] [email or web address] 02/08/2026 8:00 AM EDT Telemedicine - audio only [facility]iac [facility]hythmia Service 32 [facility], 5th Floor, [address] [place] [address] Neetu Albarran FNP 55 [place] [address] PAM@[facility] documented as of this encounter Visit Diagnoses Not on filedocumented in this encounter Care Teams Radiologic Technology Instructor Relationship Specialty Start Date End Date Darin Maldonado MD [address] [place] [address] Dr Lemus [address] [place] [address] PCP - General Internal Medicine 11/07/17 documented as of this encounter Additional Source Comments The information contained in this document represents components of the legal health record. It is not the complete legal health record.[facility]
--- OUTSIDE RECORDS SUMMARY | 2025-05-02 16:14 | XMS_ITS | Encounter Summary ---
Author Organization [facility] Address [address] [place] [address] Phone Care Team Providers Care Car Salesman Name Role Phone Darin Maldonado MD Primary Care Provider +1 [phone] Encounter Details Date Type Department Care Team (Late st Contact Info) Description 12/26/2017 Procedure Pass [facility] EP Pacer Lab 55 [facility], Floor 1, Room 110 [place] [phone] Social History Tobacco Use Types Packs/Day Years [...] 1:15 PM EST Office Visit [facility]ocrine 541 [facility] 210 [place] [address] Lorna Schreiber MD 541 [facility] 210 [place] [address] [email or web address] 09/27/2025 7:00 PM EDT Appointment [facility], Bone Density - [address] [address] Kaley Li MD 541 [facility] [address] [place] [address] [email or web address] 02/08/2026 8:00 AM EDT Telemedicine - audio only [facility] Cardiac Arrhythmia Service 32 [facility], 5th Floor, [address] [place] [address] Neetu Albarran, CONSULTANT 55 [place] [address] PAM@[email or web address] documented as of this encounter Visit Diagnoses Not on filedocumented in this encounter Care Teams Car Salesman Relationship Specialty Start Date End Date Darin Maldonado MD [address] [place] [address] [place] [address] PCP - General Internal Medicine 11/07/17 documented as of this encounter Additional Source Comments The information contained in this document represents components of the legal health record. It is not the complete legal health record.[facility]
--- OUTSIDE RECORDS SUMMARY | 2025-05-02 16:14 | XMS_ITS | Encounter Summary ---
Author Organization [facility] Address [address] [place] [address] Phone Care Team Providers Care Game Bird Farmer Name Role Phone Darin Maldonado MD Primary Care Provider [phone] [phone] Encounter Details Date Type Department Care Team (Late st Contact Info) Description 10/09/2020 Procedure Pass [facility] [place] [address] [facility], [address] [place] [address] Social History Tobacco Use Types Packs/Day Years [...] [facility] Medical [facility]ocrine 541 [facility] 210 [place] [address] Lorna Schreibre MD 541 [facility]. [facility] 210 [place] [address] [email or web address] 09/27/2025 7:00 PM EDT Appointment [facility], Bone Density - [address] [address] Kaley Li MD [address] [place] [address] [email or web address] 02/08/2026 8:00 AM EDT Telemedicine - audio only [facility] [place] [facility]ia Service 32 [facility], 5th Floor, [address] [place] [address] Neetu Albarran FNP 55 [place] [address] PAM@[facility] documented as of this encounter Visit Diagnoses Not on filedocumented in this encounter Care Teams Game Bird Farmer Relationship Specialty Start Date End Date Darin Maldonado MD [address] [place] [address] Dr Lemus [address] [place] [address] PCP - General Internal Medicine 11/07/17 documented as of this encounter Additional Source Comments The information contained in this document represents components of the legal health record. It is not the complete legal health record.[facility]
--- OUTSIDE RECORDS SUMMARY | 2025-05-02 16:14 | XMS_ITS | Encounter Summary ---
Author Organization [facility] Address [address] [place] [address] Phone Care Team Providers Care Automotive Parts Salesperson Name Role Phone Darin Maldonado MD Primary Care Provider [phone] [phone] Encounter Details Date Type Department Care Team (Late st Contact Info) Description 02/04/2018 Ancillary Orders [facility] Cardiology Division [address] [place] [address], [address] [place] [address] Hari Garcia MD, PhD [address] [place] [address] [email or web address] Cardiac arrhythmia, unspecified cardiac arrhythmia type [...] 1:15 PM EST Office Visit [facility] Medical Endocrine [address] [facility] [address] [place] [address] Lorna Schreiber MD [address] [facility]. [address] [place] [address] [email or web address] 09/27/2025 7:00 PM EDT Appointment [facility], Bone Density - [address] [address] Kaley Li MD 541 [facility] [address] [place] [address] [email or web address] 02/08/2026 8:00 AM EDT Telemedicine - audio only [facility] Cardiac Arrhythmia Service 32 [facility], 5th Floor, [address] [place] [address] Neetu Albarran FNP 55 [place] [address] PAM@[facility] documented as of this encounter Visit Diagnoses Diagnosis Cardiac arrhythmia, unspecified cardiac arrhythmia type documented in this encounter Care Teams Automotive Parts Salesperson Relationship Specialty Start Date End Date Darin Maldonado MD [address] [place] [address] [place] [address] PCP - General Internal Medicine 11/07/17 documented as of this encounter Additional Source Comments The information contained in this document represents components of the legal health record. It is not the complete legal health record.[facility]
--- OUTSIDE RECORDS SUMMARY | 2025-05-02 16:14 | XMS_ITS | Encounter Summary ---
Author Organization [facility] Address [address] [place] [address] Phone Care Team Providers Care Time Analysis Clerk Name Role Phone Darin Maldonado MD Primary Care Provider [phone] [phone] Encounter Details Date Type Department Care Team (Latest Contact Info) Description 04/08/2025 Transcribe Orders Virtual Department [address] [place] [address] Kaley Li MD 541 [facility] [address] [place] [address] [email or web address] Age-related osteoporosis without current pathological fracture (Primary [...] 1:15 PM EST Office Visit [facility] Medical Endocrine [address] [facility] [address] [place] [address] Lorna Schreiber MD 541 [facility]. [address] [place] [address] [email or web address] 09/27/2025 7:00 PM EDT Appointment [facility], Bone Density - [address] [address] Kaley Li MD 541 [facility] [address] [place] [address] [email or web address] 02/08/2026 8:00 AM EDT Telemedicine - audio only [facility] Cardiac Arrhythmia Service 32 [facility], 5th Floor, [address] [place] [address] Neetu Albarran FNP 55 [place] [address] PAM@[facility] Scheduled Orders Name Type Priority Associated Diagnoses Orde r Schedule DXA Monitoring Imaging Routine Age-related osteoporosis without current pathological fracture Expected: 05/08/2025, Expires: 04/08/2026 documented as of this encounter Visit Diagnoses Diagnosis Age-related osteoporosis without current pathological fracture- Primary documented in this encounter Care Teams Time Analysis Clerk Relationship Specialty Start Date End Date Darin Maldonado MD [address] [place] [address] [place] [address] PCP - General Internal Medicine 11/07/17 documented as of this encounter Additional Source Comments The information contained in this document represents components of the legal health record. It is not the complete legal health record.[facility]
--- OUTSIDE RECORDS SUMMARY | 2025-05-02 16:14 | XMS_ITS | Encounter Summary ---
Author Organization [facility] Address [address] [place] [address] Phone Care Team Providers Care Bookstore Clerk Name Role Phone Darin Maldonado MD Primary Care Provider [phone] [phone] Encounter Details Date Type Department Care Team (Late st Contact Info) Description 07/11/2021 Procedure Pass [facility] EP Pacer Lab [address] [facility], Floor 1, Room 110 [place] [phone] Social History Tobacco Use Types Packs/Day Years [...] Visit [facility] Medical Endocrine 541 [facility] 210 [place] [address] Lorna Schreiber MD [address] [facility] 210 [place] [address] [email or web address] 09/27/2025 7:00 PM EDT Appointment [facility], Bone Density - [address] [address] Kaley Li MD 541 [facility] [address] [place] [address] [email or web address] 02/08/2026 8:00 AM EDT Telemedicine - audio only [facility] Cardiac Arrhythmia Service 32 [facility], 5th Floor, [address] [place] [address] Neetu Albarran, CHROME TANNER 55 [place] [address] PAM@[email or web address] documented as of this encounter Visit Diagnoses Not on filedocumented in this encounter Care Teams Bookstore Clerk Relationship Specialty Start Date End Date Darin Maldonado MD [address] [place] [address] [place] [address] PCP - General Internal Medicine 11/07/17 documented as of this encounter Additional Source Comments The information contained in this document represents components of the legal health record. It is not the complete legal health record.[facility]
--- OUTSIDE RECORDS SUMMARY | 2025-05-02 16:14 | XMS_ITS | Encounter Summary ---
Author Organization [facility] Address [address] [place] [address] Phone Care Team Providers Care Maintenance Planning Clerk Name Role Phone Darin Maldonado MD Primary Care Provider [phone] [phone] Encounter Details Date Type Department Care Team (Late st Contact Info) Description 05/21/2021 Procedure Pass [facility] Cardiology Division [address] [facility], [address] [place] [address] Social History Tobacco Use Types Packs/Day Years [...] 07/26/2025 1:15 PM EST Office Visit [facility] Medical Endocrine 541 [facility] 210 [place] [address] Lorna Schreiber MD 541 [facility]. [facility] 210 [place] [address] [email or web address] 09/27/2025 7:00 PM EDT Appointment [facility], Bone Density - [address] [address] Kaley Li MD [address] [place] [address] [email or web address] 02/08/2026 8:00 AM EDT Telemedicine - audio only [facility] Cardiac Arrhythmia Service 32 [facility], 5th Floor, [address] [place] [address] Neetu Albarran FNP 55 [place] [address] PAM@[facility] [place] [facility] [place].[facility] documented as of this encounter Visit Diagnoses Not on filedocumented in this encounter Care Teams Maintenance Planning Clerk Relationship Specialty Start Date End Date Darin Maldonado MD [address] [place] [address] Dr Lemus [address] [place] [address] PCP - General Internal Medicine 11/07/17 documented as of this encounter Additional Source Comments The information contained in this document represents components of the legal health record. It is not the complete legal health record.[facility]
--- OUTSIDE RECORDS SUMMARY | 2025-05-02 16:14 | XMS_ITS | Encounter Summary ---
Author Organization [facility] Address [address] [place] [address] Phone Care Team Providers Care Roller Mechanic Name Role Phone Darin Maldonado MD Primary Care Provider [phone] [phone] Encounter Details Date Type Department Care Team (Late st Contact Info) Description 11/22/2020 Procedure Pass [facility] Cardiology Division [address] [facility], [address] [place] [address] Social History Tobacco Use Types Packs/Day Years [...] 07/26/2025 1:15 PM EST Office Visit [facility] Medical Endocrine 541 [facility] 210 [place] [address] Lorna Schreiber MD 541 [facility]. [facility] 210 [place] [address] [email or web address] 09/27/2025 7:00 PM EDT Appointment [facility], Bone Density - [address] [address] Kaley Li MD [address] [place] [address] [email or web address] 02/08/2026 8:00 AM EDT Telemedicine - audio only [facility] Cardiac Arrhythmia Service 32 [facility], 5th Floor, [address] [place] [address] Neetu Albarran FNP 55 [place] [address] PAM@[facility] documented as of this encounter Visit Diagnoses Not on filedocumented in this encounter Care Teams Roller Mechanic Relationship Specialty Start Date End Date Darin Maldonado MD [address] [place] [address] Dr Lemus [address] [place] [address] PCP - General Internal Medicine 11/07/17 documented as of this encounter Additional Source Comments The information contained in this document represents components of the legal health record. It is not the complete legal health record.[facility]
--- OUTSIDE RECORDS SUMMARY | 2025-05-02 16:14 | XMS_ITS | Encounter Summary ---
Author Organization [facility] Address [address] [place] [address] Phone Care Team Providers Care Road Packer Operator Name Role Phone Darin Maldonado MD Primary Care Provider [phone] [phone] Encounter Details Date Type Department Care Team (Late st Contact Info) Description 01/05/2021 Procedure Pass [facility] [place] [address] [facility], [address] [place] [address] Social History Tobacco Use Types Packs/Day Years [...] Description 07/26/2025 1:15 PM EST Office Visit [facility] Medical Endocrine [address] [facility] 210 [place] [address] Lorna Schreiber MD 541 [facility]. [facility] 210 [place] [address] [email or web address] 09/27/2025 7:00 PM EDT Appointment [facility], Bone Density - [address] [address] Kaley Li MD [address] [place] [address] [email or web address] 02/08/2026 8:00 AM EDT Telemedicine - audio only [facility] Cardiac Arrhythmia Service 32 [facility], 5th Floor, [address] [place] [address] Neetu Albarran FNP 55 [place] [address] PAM@[facility] documented as of this encounter Visit Diagnoses Not on filedocumented in this encounter Care Teams Road Packer Operator Relationship Specialty Start Date End Date Darin Maldonado MD [address] [place] [address] Dr Lem[address] [place] [address] PCP - General Internal Medicine 11/07/17 documented as of this encounter Additional Source Comments The information contained in this document represents components of the legal health record. It is not the complete legal health record.[facility]
--- OUTSIDE RECORDS SUMMARY | 2025-05-02 16:14 | XMS_ITS | Encounter Summary ---
Author Organization [facility] Address [address] [place] [address] Phone Care Team Providers Care Security Strategist Name Role Phone Darin Maldonado MD Primary Care Provider [phone] [phone] Encounter Details Date Type Department Care Team (Late st Contact Info) Description 04/05/2021 Procedure Pass [facility] Cardiology Division 55 [facility], [address] [place] [address] Social History Tobacco Use Types Packs/Day Years [...] Description 07/26/2025 1:15 PM EST Office Visit [facility] Medical Endocrine 541 [facility] 210 [place] [address] Lorna Schreiber MD 541 [facility]. [facility] 210 [place] [address] [email or web address] 09/27/2025 7:00 PM EDT Appointment [facility], Bone Density - [address] [address] Kaley Li MD [address] [place] [address] [email or web address] 02/08/2026 8:00 AM EDT Telemedicine - audio only [facility] Cardiac Arrhythmia Service 32 [facility], 5th Floor, [address] [place] [address] Neetu Albarran FNP 55 [place] [address] PAM@[facility] documented as of this encounter Visit Diagnoses Not on filedocumented in this encounter Care Teams Security Strategist Relationship Specialty Start Date End Date Darin Maldonado MD [address] [place] [address] Dr Lemus [address] [place] [address] PCP - General Internal Medicine 11/07/17 documented as of this encounter Additional Source Comments The information contained in this document represents components of the legal health record. It is not the complete legal health record.[facility]
--- OUTSIDE RECORDS SUMMARY | 2025-05-02 16:14 | XMS_ITS | Encounter Summary ---
Author Organization [facility] Address [address] [place] [address] Phone Care Team Providers Care Physical Education Aide Name Role Phone Darin Maldonado MD Primary Care Provider [phone] [phone] Encounter Details Date Type Department Care Team (Late st Contact Info) Description 02/19/2021 Procedure Pass [facility] Cardiology Division [address] [facility], [address] [place] [address] Social History Tobacco Use Types Packs/Day Years [...] 1:15 PM EST Office Visit [facility] Medical Endocrine 541 [facility] 210 [place] [address] Lorna Schreiber MD 541 [facility] [address] [place] [address] [email or web address] 09/27/2025 7:00 PM EDT Appointment [facility], Bone Density - [address] [address] Kaley Li MD [address] [place] [address] [email or web address] 02/08/2026 8:00 AM EDT Telemedicine - audio only [facility] Cardiac Arrhythmia Service 32 [facility], 5th Floor, [address] [place] [address] Neetu Albarran FNP 55 [place] [address] PAM@[facility] [place] documented as of this encounter Visit Diagnoses Not on filedocumented in this encounter Care Teams Physical Education Aide Relationship Specialty Start Date End Date Darin Maldonado MD [address] [place] [address] Dr Lemus [address] [place] [address] PCP - General Internal Medicine 11/07/17 documented as of this encounter Additional Source Comments The information contained in this document represents components of the legal health record. It is not the complete legal health record.[facility]
--- OUTSIDE RECORDS SUMMARY | 2025-05-02 16:14 | XMS_ITS | Encounter Summary ---
Author Organization Formerly [facility] Address [address] [place] [address] Phone Care Team Providers Care Blueprint Duplicator Name Role Phone Darin Maldonado MD Primary Care Provider [phone] Encounter Details Date Type Department Care Team (Late st Contact Info) Description 02/04/2018 Procedure Pass [facility] [place] [facility] [address] [facility], [address], [address] [place] [id number] Social History Tobacco Use Types Packs/Day Years [...] Visit [facility]ocrine [address] [facility] [address] [place] [address] Lorna Schreiber MD [address] [facility] [address] [place] [address] [email or web address] 09/27/2025 7:00 PM EDT Appointment [facility], Bone Density - [address] [address] Kaley Li MD [address] [facility] [address] [place] [address] [email or web address] 02/08/2026 8:00 AM EDT Telemedicine - audio only [facility] [address] [facility], 5th [address], [address] [place] [address] Neetu Albarran, [employer] [address] [place] [address] [email or web address] documented as of this encounter Visit Diagnoses Not on filedocumented in this encounter Care Teams Blueprint Duplicator Relationship Specialty Start Date End Date Darin Maldonado MD [address] [place] [address] [place] [id number] PCP - General Internal Medicine 11/07/17 documented as of this encounter Additional Source Comments The information contained in this document represents components of the legal health record. It is not the complete legal health record.[facility]
== END 2025-05-02 14:52 | disposition home or self-care (01) ==
LOC: HO.ENCR 13:56
PROVIDERS: PCP Internal Medicine; Visit Provider Internal Medicine Endocrinology, Diabetes & Metabolism
DX: M81.0 Age-related osteoporosis without current pathological fracture (principal)
CPT/HCPCS: 99213